=== PATIENT | male | born 1945 | race Caucasian/White ===

== ENCOUNTER 2023-09-24 10:45 | Emergency (ER) | payer MEDICARE, SELFPAY ==
[2023-09-24] VITALS (27 sets, daily range): BP systolic 146–165; BP diastolic 52–122; PULSE 51–126; RESP 16–26; TEMP 36.6–36.9; O2SAT 94–99
[2023-09-24] MEDS: ACETAMINOPHEN 1,000 MG/100 ML BTL 400 MG IVPB (11:23)
[2023-09-24 11:26] LABS: Abs Immature Grans 0.06 10^3/uL (0.0-0.06); Absolute Basophil Count 0.03 10^3/uL (0.0-0.2); Absolute Eosinophil Count 0.02 10^3/uL (0.0-0.7); Absolute Lymphocyte Count 0.87 10^3/uL (1.2-3.4); Absolute Monocyte Count 0.44 10^3/uL (0.1-0.8); Absolute Neutrophil Count 9.07 10^3/uL (1.2-6.7); Basophils % 0.3 %; Eosinophils % 0.2 %; HCT 37.7 % (40.0-50.0); HGB 13.4 g/dL (13.5-17.5); Immature Grans % 0.6 %; Lymphocytes % 8.3 %; MCHC 35.5 % (32.0-36.0); MCV 87 fL (80-95); MPV 9.2 fL (8.0-11.0); Monocytes % 4.2 %; Neutrophils % 86.4 %; Platelet Count 402 10^3/uL (130-400); RBC 4.32 10^6/uL (4.36-5.78); RDW 11.8 % (11.8-14.1); RDW-SD 37.7 fL; WBC 10.49 10^3/uL (4.4-10.8)
--- NOTE | 2023-09-24 11:41 | ED.GENADUL_ITS ---
Discharge Plan Disposition Patient Disposition: Transfer-Acute Inpatient Care Specific Acute Inpt Facility: [facility] Condition: Critical Discharge Details Chief Complaint: Abd Prob Clinical Impression: Acute renal failure Primary Care Provider: Unknown,Unknown ED Provider: Toney Chris Home Meds and New Rx's Prescriptions: No Action No Known Home Meds HPI General Date/Time Provider Initiated Documentation: 09/24/23 11:14 . Limitations to Documentation: no limitations . Information obtained by: patient . HPI Narrative: 78-year-old gentleman without significant past medical history presents for evaluation of abdominal pain. Reports that the pain has been ongoing for the last 10 days per progressively worsening over the last 4 days. He reports that the pain is on the left side and radiates to the back. He states that he has a feeling that he needs to urinate, but has some difficulty going to the bathroom. Reports decreased oral intake. States that he has also had subsequent decrease in bowel movements. He states if he does eat a little bit of food, he usually will have a bowel movement. He denies any fever or vomiting. Related Data Home Medications ?Medication ?Instructions ?Recorded ?Confirmed Unknown [No Known Home Meds] 09/24/23 09/24/23 Allergies Allergy/AdvReac Type Severity Reaction Status Date / Time No Known Allergies Allergy Unverified 09/24/23 10:57 General Stated Complaint: Abd Prob DEON: 3 Exam Narrative Exam Narrative: Review of Systems: All systems reviewed & are unremarkable except as noted in HPI and below Well-developed, no acute distress NCAT PERRL, normal conjunctiva RRR Unlabored respiratory effort, clear bilaterally Mildly distended abdomen , guarding noted, soft Extremities w/o deformity, no cyanosis, no edema No rashes or lesions. no focal neurologic deficits Appropriate mood and affect Course Vital Signs Vital signs: Vital Signs Temperature 36.9 C 09/24/23 10:50 Pulse 61 09/24/23 10:50 Respiratory Rate 18 09/24/23 10:50 Blood Pressure 146/68 H 09/24/23 10:50 Pulse Oximetry 96 09/24/23 10:50 Temperature 36.9 C 09/24/23 10:50 Pulse 61 09/24/23 10:50 Respiratory Rate 18 09/24/23 10:50 Respiratory Effort Normal 09/24/23 10:59 Blood Pressure 146/68 H 09/24/23 10:50 Blood Pressure Position Sitting 09/24/23 10:50 Pulse Oximetry 96 09/24/23 10:50 Oxygen Delivery Method Room Air 09/24/23 10:50 Oxygen Flow Rate 0 09/24/23 10:50 Pain Level 6 09/24/23 10:50 Lab/Test Results Lab/Test Results: Laboratory Tests Range/Units 09/24/23 11:12 WBC (4.4-10.8) 10^3/uL 10.49 RBC (4.36-5.78) 10^6/uL 4.32 L Hgb (13.5-17.5) g/dL 13.4 L Hct (40.0-50.0) % 37.7 L MCV (80-95) fL 87 MCH (27.0-33.0) pg 31.0 MCHC (32.0-36.0) % 35.5 RDW (11.8-14.1) % 11.8 Plt Count (130-400) 10^3/uL 402 H MPV (8.0-11.0) fL 9.2 Immature Gran % % 0.6 Neutrophils % % 86.4 Lymphocytes % % 8.3 Monocytes % % 4.2 Eosinophils % % 0.2 Basophils % % 0.3 Nucleated RBC % (0.0-0.3) % 0.0 Absolute Neutrophils (1.2-6.7) 10^3/uL 9.07 H Absolute Lymphocytes (1.2-3.4) 10^3/uL 0.87 L Absolute Monocytes (0.1-0.8) 10^3/uL 0.44 Absolute Eosinophils (0.0-0.7) 10^3/uL 0.02 Absolute Basophils (0.0-0.2) 10^3/uL 0.03 Medical Decision Making Emergent evaluation of abdominal pain. Initial differential includes constipation, diverticulitis, renal colic. Initial plan for lab work, urinalysis and CT imaging to evaluate for intra or abdominal process. Lab work reviewed. Significant renal dysfunction noted with severe electrolyte derangement. Sodium 116. Potassium 6.9. CO2 12.6. BUNs 170 creatinine 19.9. The significant changes are likely the cause of the patient's bizarre mental status. His pH is low at 7.1. Potassium shifting medications were given and calcium and bicarb were also given. The patient had a bedside bladder scan performed and there was a significant amount of volume noted concerning for urinary retention. A CT scan without contrast was obtained which does demonstrate significant obstructive uropathy. A Lopez catheter was placed. The CT scan was discussed with the radiologist. Significant bladder dilation as well as swelling in the kidneys. There is concern for possible calyceal rupture of the left kidney versus left proximal ureter mass. Every further differentiated with contrasted study is not available at this time given his renal function however if they start dialysis at outside facility this may be beneficial. Patient does not seem to have capacity to understand what is happ ening and I do not feel at this time he has capacity to make medical decisions. I have discussed the necessity of transfer with his . He has been accepted for emergent ED to ED transfer to [facility] and the is agreeable to this plan. Accepted by Dr Cheng. Medical Records Medical records reviewed: Yes I reviewed the patient's medical records. Lab Data Lab results reviewed: Yes I reviewed the patient's lab results. Quality:[facility] Health Related Social Needs: No Data to Display Critical Care Time Critical Care Time Critical Care Time: Yes Total Critical Care Time: 35 Attestation: CRITICAL CARE Upon my evaluation, this patient had a high probability of imminent or life- threatening deterioration due to renal failure which required my direct attention, intervention, and personal management. I have personally provided 35 minutes of critical care time exclusive of time spent on separately billable procedures. Time includes review of laboratory data, radiology results, discussion with consultants, and monitoring for potential decompensation. Interventions were performed as documented above [facility] All Active Problems (Updated 09/24/23 @ 14:11 by Toney Chris MD) Acute renal failure (Acute) Social History Smoking/Tobacco Use Status: Never Smoking risk assessment performed?: Yes Alcohol Intake: former Substance use type: does not use Housing: house Do you feel safe at home: Yes Do you feel safe in your relationship?: Yes
[2023-09-24 11:49] LABS: ALT 14 U/L (16-63); AST 9 U/L (15-37); Alkaline Phosphatase 69 U/L (46-116); Anion Gap 26.4 mmol/L (3-11); Bilirubin, Total 0.38 mg/dL (0.2-1.0); CO2 12.6 mmol/L (21.0-32.0); Chloride 77 mmol/L (98-107); Estimated GFR 2.12 (mL/min/1.73m2); Glucose 73 mg/dL (74-106); Lipase 107 U/L (16-77); Total Protein 8.1 g/dL (6.4-8.2)
[2023-09-24 11:59] LABS: BUN 170 mg/dL (7-18); CREATININE 19.9 mg/dL (0.70-1.30); Sodium 116 mmol/L (136-145)
[2023-09-24 12:00] LABS: Potassium 6.9 mmol/L (3.5-5.1)
--- NOTE | 2023-09-24 12:00 | RT.EKG_ITS ---
APPROVED REPORT Exam: Resting ECG Reason for Exam: abd pain Patient Location: E HR:58 bpm ECG Measurements Heart Rate 58 AXIS AR 216 P 48 QRSd 119 QRS 30 QT 401 T 63 QTc 395 Conclusion Sinus bradycardia 58 no stemi
--- NOTE | 2023-09-24 12:00 | DI.CT_ITS ---
Exam(s) CT ABDOMEN PELVIS WO EXAM: CT ABDOMEN PELVIS WO CLINICAL HISTORY: abdominal pain. TECHNIQUE: Imaging Protocol: Axial computed tomography images with coronal and sagittal reformatted images were created and reviewed. COMPARISON: No exams were available for comparison FINDINGS: The examination is limited due to patient motion artifact. ABDOMEN: Lung Bases: There is a moderate size left pleural effusion. There is subjacent infiltrate in the lef t lower lobe. Liver: Normal density. No measurable mass. Gallbladder and biliary tract: No radiodense calculus or biliary ductal dilation. Pancreas: Normal density, no abnormal calcifications or inflammatory process. Spleen: Normal. Kidneys: There is moderate dilatation of the right renal pelvis without evidence of a radiopaque obst ructing stone. The distal ureters of normal caliber. There is moderate dilatation of the left renal pelvis with normal caliber distal left ureter. There is fluid seen in the perinephric soft tissues on the left. There is also fluid seen in the retroperitoneum on the left adjacent to the left iliops oas muscle.No radiodense stones are seen in the kidneys. There is a 2 cm hypodensity in the superior pole of the left kidney. This is incompletely characterized on this noncontrast examination. Adrenal glands: No mass is seen. Lymph nodes: Within normal limits. Abdominal Aorta: Abdominal portion non-dilated. Atherosclerotic calcification is present. PELVIS: Bladder:The urinary bladder is markedly distended. No bladder mass is appreciated. No bladder stone s are identified. Bowel: There is diverticulosis of the colon without evidence of acute diverticulitis. There is no ev idence of bowel obstruction or bowel wall thickening. There is no evidence of appendicitis. Peritoneal cavity: There is a small amount of ascites in the gutters bilaterally. There is a small a mount of perihepatic and perisplenic ascites. No free air. Reproductive organs: The prostate gland is mildly enlarged. Bones: Within normal limits for the patient's age. There is L5 spondylolysis but no spondylolisthesi s. Soft Tissues: Within normal limits. IMPRESSION: 1. Markedly distended urinary bladder. No stones or masses identified. The prostate gland is mildly e nlarged. 2. Dilatation of the renal collecting systems bilaterally, predominantly involving the renal pelves. There is infiltration in fluid seen surrounding the left kidney. This may represent calyceal/fornicea l rupture. No radiopaque stone is identified. A radiolucent stone or proximal ureteral mass should be considered. Dilatation of the collecting systems may also be a sequelae of the distended urinary bhupinder dder. 3. Moderate left pleural effusion and left basilar infiltrate which may represent atelectasis or pneu monia. 4. Colonic diverticulosis without evidence of acute diverticulitis. 5. A postcontrast CT scan or MRI of the abdomen and pelvis is recommended. 6. Indeterminate 2 cm hypodensity in the superior pole of the left kidney. 7. Findings were discussed with Dr. Chris at 2:10 p.m. on 09/24/2023. RADIATION DOSE DELIVERED: Total DLP DATA REPOSITORY: All CT scans at this facility are submitted to the National Radiology Data Registry (NRDR) Dose Index Registry (DIR) with the [employer] (A[employer]). RADIATION OPTIMIZATION: All CT scans at this facility use at least one of these dose optimization te chniques: automated exposure control; mA and/or kV adjustment per patient size (includes targeted exa ms where dose is matched to clinical indication); or iterative reconstruction.
[2023-09-24 12:07] LABS: pCO2 (Venous) 31 mmHg (41-51)
[2023-09-24 12:08] LABS: BE (Venous) -16 mmol/L (-2-3); HCO3 (Venous) 12 mmol/L (23-28); O2 Sat (Venous) 85 %; TCO2 (Venous) 13 mmol/L (24-29); pO2 (Venous) 61 mmHg
[2023-09-24 12:08] LABS: Calcium 9.6 mg/dL (8.5-10.1)
[2023-09-24 12:09] LABS: pH (Venous) 7.19 (7.31-7.41)
[2023-09-24] MEDS: Dextrose 50%-Water 25 GM/50 ML SYR IVP (12:18)
[2023-09-24] MEDS: Insulin REGULAR-Human 100 UNITS/ML UNIT IV (12:19)
[2023-09-24] MEDS: Furosemide 100 MG/10 ML VIAL 80 MG IVP (12:20)
[2023-09-24] MEDS: CALCIUM GLUCONATE in NaCl 1 GM/50 ML BAG IVPB (12:22)
[2023-09-24] MEDS: Sodium Bicarbonate 50 MEQ/50 ML SYR IVP (12:25)
[2023-09-24] MEDS: Normal Saline 1,000 ML 1000 ML IV (12:27)
[2023-09-24] MEDS: Albuterol 2.5 MG/3 ML INH SOLN VIAL 10 MG UPD (12:29)
[2023-09-24] MEDS: Lidocaine 2% Jelly 6 ML SYR (13:40)
--- NOTE | 2023-10-07 09:45 | NUR.NOTE ---
Access chart to get demographic information to send referral for needs PCP. Dr. Cornejo full stack python developer for telephone call on the th referral sent for establish care, follow up from [facility]. Nursing Note:
--- NOTE | 2023-10-07 10:17 | NUR.NOTE ---
Patient called stating that he had a murillo put in at [facility] and wanted to know if he could have it taken out here. I told him that we do remove them, he can also go to [facility] or [facility]CP. He stated he felt better coming here because he like the care he got here. He also stated he does not have a PCP. I sent a referral to [facility] for PCP; see other note. Nursing Note:
== END 2023-09-24 14:30 | disposition short-term general hospital (02) ==
PROVIDERS: Emergency Provider Emergency Medicine
DX: N28.9 Disorder of kidney and ureter, unspecified (principal); R93.422 Abnormal radiologic findings on diagnostic imaging of left kidney; R93.421 Abnormal radiologic findings on diagnostic imaging of right kidney; R10.9 Unspecified abdominal pain; R11.2 Nausea with vomiting, unspecified
CPT/HCPCS: 51702; 80053; 82805; 83690; 93005; 94640; 96365; 96375; 99291; 74176; 83605; 85025; 93010; J0131; J0613; J1815; J1940; J7613

== ENCOUNTER 2023-10-07 15:51 | Emergency (ER) | payer MEDICARE, SELFPAY ==
[2023-10-07 16:00] VITALS: BP 116/73; PULSE 94; RESP 16; TEMP 36.6; O2SAT 99
--- OUTSIDE RECORDS SUMMARY | 2023-10-07 16:18 | XMS_ITS | Clinical Summary ---
Author Organization [facility] Address [address] [place] [address] Care Team Providers Care Acid Bath Mixer Name Role Phone Sasha Garg MD Primary Care Provider Jigna Chapman MD Unavailable [phone] Allergies Active Allergy Reactions Criticality Noted Date Comments Basil Swelling,GI upset High 09/25/2023 Pt states I have a head to toe negative reaction Marcial [place] Swelling,GI upset High 09/25/2023 Pt states that foods with marcial or similar spices cause a head to toe negative reaction Medications Medication Sig Dispensed Refills Start Date End Date Status acetaminophen (TYLENOL) 325 mg tablet Take 2 Tablets by mouth every 6 hours as needed for Pain or Fever. 09/30/2023 Active dilTIAZem (CARDIZEM) 30 mg tablet Take 1 Tablet by mouth 2 times daily. 60 Tablet 09/30/2023 Active TAMSulosin (FLOMAX) 0.4 mg capsule Take 1 Capsule by mouth at bedtime. 30 Capsule 2 10/04/2023 Active finasteride (PROSCAR) 5 mg tablet Take 1 Tablet by mouth daily. 30 Tablet 2 10/04/2023 Active TAMSulosin (FLOMAX) 0.4 mg capsule Take 1 Capsule by mouth at bedtime for 30 days. 30 Capsule 09/30/2023 10/04/2023 Discontinued (Reorder) finasteride (PROSCAR) 5 mg tablet Take 1 Tablet by mouth daily. 30 Tablet 10/01/2023 10/04/2023 Discontinued (Reorder) Active Problems Problem Noted Date Diagnosed Date Typical atrial flutter ([facility]) 09/29/2023 Acute bilateral obstructive uropathy 09/25/2023 Urinary retention 09/25/2023 Resolved Problems Problem Noted Date Diagnosed Date Resolved Date Acute renal failure, unspeci fied acute renal failure type ([facility]) 09/25/2023 09/29/2023 Hyponatremia 09/25/2023 09/29/2023 NSTEMI (non-ST elevated myoc ardial infarction) ([facility]) 09/25/2023 09/29/2023 Acute renal failure ([facility]) 09/24/2023 09/29/2023 MANUELITO (acute kidney injury) ([facility]) 09/24/2023 09/29/2023 Encounters Date Type Department Care Team Description 10/04/2023 Telephone [facility] Urology - [address] [phone] Nurse, Ep5 Urology Requesting Sooner Appointment 10/03/2023 Telephone [facility] Adult Primary Care [facility] [address], [place] [phone] Imelda Kimble, GRIFFIN Hospital Discharge Follow Up 10/02/2023 9:18 EDT - 10/02/2023 23:59 EDT Hospital Encounter [facility] Non-Invasive Cardiology - [address] [address] Typical atrial flutter ([facility]) Discharge Disposition: Home or Self Care 09/26/2023 Orders Only [facility] Radiology - [address] [address] Chris Montgomery MD 09/24/2023 18:14 EDT - 09/24/2023 23:59 EDT Hospital Encounter [facility] Secondary Reads [place] Discharge Disposition: Home or Self Care 09/24/2023 16:13 EDT - 09/30/2023 15:27 EDT Hospital Encounter [place] [address] General Medicine Telemetry Unit [address] [place] [phone] Latisha Ruvalcaba MD Lambirth, Shea P, MD [facility], Bruna Amalea, MD MPH Donna Valencia DO Farkas, Joshua D, MD Levit, Aaron, DO Doyle-Burr, Caleb J, MD Acute bilateral obstructive uropathy (Primary Dx); Acute renal failure, unspecified acute renal failure type ([facility]); Hyponatremia; NSTEMI (non-ST elevated myocardial infarction) ([facility]); Urinary retention; Typical atrial flutter ([facility]); MANUELITO (acute kidney injury) ([facility]) Discharge Disposition: Home-Health Care [facility] 09/24/2023 Travel from Last 3 Months Family History Medical History Relation Comments Dementia Father Relation Status Comments Father Social History Tobacco Use Types Packs/Day Years Used Date Smoking Tobacco: Never Assessed PRAPARE - Transportation Answer Date Re corded In the past 12 months, has l ack of transportation kept you from medical appointments or from getting medications? No 09/11 In the past 12 months, has l ack of transportation kept you from meetings, work, or from getting things needed for daily living? No 09/28/2023 Housing Stability Vital Sign Answer José e Recorded In the last 12 months, was t here a time when you were not able to pay the mortgage or rent on time? No 09/28/2023 Number of Times Moved in the Last Year Not on fi le 09/28/2023 At any time in the past 12 m [facility], were you homeless or living in a long-term (including now)? No 09/28/2023 Interpersonal Safety Answer Date Record ed How often does anyone, inclu jackie family, hit, punch or physically hurt you? 09/26/2023 How often does anyone, inclu jackie family, insult, scream, curse or threaten to hurt you? 09/26/2023 Sex and Gender Information Value Date Recorded Sex Assigned at Male 10/05/2023 21:45 EDT Gender Identity Male 09/24/2023 16:53 EDT Sexual Orientation Straight 10/05/2023 21 :45 EDT Obstetrics History Last Filed Vital Signs Vital Sign Reading Time Taken Comments Blood Pressure 121/76 09/30/2023 1248 EDT Pulse 56 09/29/2023 0029 EDT Temperature 36.7 ??C (98.1 ??F) 09/30/2023 1248 EDT Respiratory Rate 16 09/30/2023 1248 EDT Oxygen Saturation 98% 09/30/2023 1248 EDT Inhaled Oxygen Concentration - - Weight 85.7 kg (189 lb) 09/25/2023 0800 EDT Height 180.3 cm (5' 11) 09/25/2023 0800 EDT Body Mass Index 26.36 09/25/2023 0800 EDT Plan of Treatment Upcoming Encounters Date Type Department Care Team (Late st Contact Info) Description 10/09/2023 11:20 EDT Post-op Visit [facility] Urolog[address] [address] Ricardo Wright MD [address] [place] [phone] 10/09/2023 11:30 EDT Nurse Only [facility]rolog[address] [address] Nurse, Ep5 Urology 10/11/2023 14:00 EDT Office Visit [facility] Adult Primary Care [address] [address] Sasha Garg MD [address] [place] [phone] 10/31/2023 11:30 EDT Appointment [facility] Radiology CT - [address] [phone] Health Maintenance Due Date Last Done Comments Hepatitis C Screen 1945 Pneumococcal Immunization (6 5+) (1 of 2 - PCV) 1950 Depression Screening 1956 Advance Directive 1962 Preventive Care Visit 1962 Pertussis (Adult) Immunization 08/19/1963 Tetanus (Adult) Immunization 08/19/1963 Shingles Immunization (1 of 2) 1994 RSV Immunization ( o r 60+ Years) (1 - 1-dose 60+ series) 2004 Fall Risk Screening 2009 Influenza Immunization (Adul t) (#1) 2023 COVID-19 Vaccine (2022-2 4 season) 2023 Postponed from 10/12 (Immunization Not Available) Social Determinants Of Healt h (SDOH) 09/27/2024 09/28/2023 Lipid Profile Screening (Cholesterol) 09/24/2028 09/25/2023 Procedures Procedure Name Priority Date/Time Associated Diagnosis Comments ECG REPORT - SCANNED 10/03/2023 15:15 EDT ECG REPORT - SCANNED 10/03/2023 14:44 EDT ECG REPORT - SCANNED 10/03/2023 13:34 EDT ECG REPORT - SCANNED 10/02/2023 22:21 EDT ECG REPORT - SCANNED 10/02/2023 13:45 EDT ECG REPORT - SCANNED 09/30/2023 17:45 EDT HEPARIN LEVEL - UNFRACTIONATED HEPARIN STAT 09/30/2023 10:26 EDT BASIC METABOLIC PANEL (BMP) Timed 09/30/2023 6:15 EDT COMPLETE BLOOD COUNT Routine 09/30/2023 6:15 EDT EKG 12-LEAD Routine 09/29/2023 19:02 EDT COMPLETE BLOOD COUNT Routine 09/29/2023 5:50 EDT BASIC METABOLIC PANEL (BMP) Timed 09/29/2023 5:49 EDT ECG REPORT - SCANNED 09/28/2023 14:34 EDT EKG 12-LEAD STAT 09/28/2023 11:46 EDT BASIC METABOLIC PANEL (BMP) Timed 09/28/2023 5:42 EDT COMPLETE BLOOD COUNT Routine 09/28/2023 5:42 EDT BASIC METABOLIC PANEL (BMP) Timed 09/27/2023 21:52 EDT BASIC METABOLIC PANEL (BMP) Timed 09/27/2023 14:55 EDT EKG 12-LEAD STAT 09/27/2023 10:14 EDT BASIC METABOLIC PANEL (BMP) Timed 09/27/2023 9:54 EDT COMPLETE BLOOD COUNT Routine 09/27/2023 5:38 EDT BASIC METABOLIC PANEL (BMP) Timed 09/27/2023 5:38 EDT BASIC METABOLIC PANEL (BMP) Timed 09/27/2023 2:02 EDT BASIC METABOLIC PANEL (BMP) Timed 09/26/2023 21:26 EDT BASIC METABOLIC PANEL (BMP) Timed 09/26/2023 18:06 EDT BASIC METABOLIC PANEL (BMP) Timed 09/26/2023 13:50 EDT BASIC METABOLIC PANEL (BMP) Timed 09/26/2023 10:14 EDT BASIC METABOLIC PANEL (BMP) Timed 09/26/2023 5:44 EDT BASIC METABOLIC PANEL (BMP) Timed 09/26/2023 2:10 EDT COMPLETE BLOOD COUNT Routine 09/26/2023 2:10 EDT BASIC METABOLIC PANEL (BMP) Timed 09/25/2023 21:50 EDT EKG 12-LEAD Routine 09/25/2023 20:25 EDT MRSA PCR Routine 09/25/2023 17:53 EDT ELECTROLYTES Routine 09/25/2023 17:52 EDT BASIC METABOLIC PANEL (BMP) Timed 09/25/2023 17:52 EDT BASIC METABOLIC PANEL (BMP) Timed 09/25/2023 13:48 EDT ECG REPORT - SCANNED 09/25/2023 10:07 EDT BASIC METABOLIC PANEL (BMP) Timed 09/25/2023 10:06 EDT TRANSTHORACIC ECHO (TTE) COMPLETE Routine 09/25/2023 10:03 EDT ECG REPORT - SCANNED 09/25/2023 9:56 EDT LIPID PROFILE (INCLUDES CHOLESTEROL, TRIGLYCERIDES, HDL, LDL) Add-On 09/25/2023 6:26 EDT TSH Add-On 09/25/2023 6:26 EDT HEMOGLOBIN A1C Add-On 09/25/2023 6:26 EDT TROPONIN I Routine 09/25/2023 6:26 EDT BASIC METABOLIC PANEL (BMP) Routine 09/25/2023 6:26 EDT COMPLETE BLOOD COUNT Routine 09/25/2023 6:26 EDT BASIC METABOLIC PANEL (BMP) STAT 09/25/2023 1:44 EDT BLOOD GASES, VENOUS STAT 09/24/2023 2 2:45 EDT PHOSPHORUS Add-On 09/24/2023 21:02 EDT SODIUM STAT Add-on 09/24/2023 21:02 EDT TROPONIN I STAT 09/24/2023 21:02 EDT BUN STAT 09/24/2023 19:14 EDT CREATININE STAT 09/24/2023 19:[address] OUTSIDE IMAGES ABDOMEN PELVIS STAT 09/24/2023 18:22 EDT URINE CHEMICAL (DIP) & SEDIMENT (MICRO) WITH REFLEX TO CULTURE STAT 09/24/2023 17:56 EDT TSH STAT 09/24/2023 17:14 EDT TROPONIN I STAT 09/24/2023 17:14 EDT LACTIC ACID WITH REFLEX - USE FOR INITIAL SEPSIS EVALUATION STAT 09/24/2023 17:14 EDT COMPREHENSIVE METABOLIC PANEL (CMP) STAT 09/24/2023 17:14 EDT MAGNESIUM STAT 09/24/2023 17:14 EDT MANUAL HEMATOCRIT Today 09/24/2023 17: 13 EDT COMPLETE BLOOD COUNT AND DIFFERENTIAL STAT 09/24/2023 17:13 EDT EKG 12-LEAD STAT 09/24/2023 17:06 EDT EKG 12-LEAD STAT 09/24/2023 16:53 EDT from Last 3 Months Results * ECG REPORT - SCANNED (10/03/2023 15:15 EDT) 10/03/2023 15:1 5 EDT Scan 2 [employer] PROCEDURE/MINOR DANIEL GICAL ORDERABLES * ECG REPORT - SCANNED (10/03/2023 14:44 EDT) 10/03/2023 14:4 4 EDT Scan 2 [employer] PROCEDURE/MINOR DANIEL GICAL ORDERABLES * ECG REPORT - SCANNED (10/03/2023 13:34 EDT) 10/03/2023 13:3 4 EDT Scan 2 [employer] PROCEDURE/MINOR DANIEL GICAL ORDERABLES * ECG REPORT - SCANNED (10/02/2023 22:21 EDT) 10/02/2023 22:2 1 EDT Scan 2 [employer] PROCEDURE/MINOR DANIEL GICAL ORDERABLES * ECG REPORT - SCANNED (10/02/2023 13:45 EDT) 10/02/2023 13:4 5 EDT Scan 2 [employer] PROCEDURE/MINOR DANIEL GICAL ORDERABLES * ECG REPORT - SCANNED (09/30/2023 17:45 EDT) 09/30/2023 17:4 5 EDT Scan 2 [employer] PROCEDURE/MINOR DANIEL GICAL ORDERABLES * HEPARIN LEVEL - UNFRACTIONATED HEPARIN (09/30/2023 10:26 EDT) Heparin Level-UFH 0.12 Therapeutic Range: 0.30 - 0.70 IU/mL 09/30/2023 11:00 EDT [facility] Blood VENOUS BLOOD / Unknown Venipuncture / Unknown 09/30/2023 10:26 EDT 09/30/2023 10:34 EDT Narrative [facility] - 09/30/2023 11:00 EDT Sample retested, result confirmed Lalo Ramires MD HEMATOLOGY & PF4 O RDERABLES [facility] [address] [place] [address] * (ABNORMAL) COMPLETE BLOOD COUNT (09/30/2023 6:15 EDT) Only the most recent of6 resultswithin the time period is included. WBC 9.06 4.00 - 10.40 K/cmm 09/30/2023 6:29 EDT [facility] RBC 3.70(L) 4.36 - 5.78 M/cmm 09/30/2023 6:29 EDT [facility] Hemoglobin 11.7(L) 13.8 - 17.3 g/dL 09/30/2023 6:29 [facility] HCT 34.0(L) 39.5 - 50.2 % 09/30/2023 6:29 [facility] MCV 92 81 - 95 fL 09/30/2023 6[facility] MCH 31.6 27.6 - 33.0 pg 09/30/2023 6:29 [facility] MCHC 34.4 32.8 - 36.4 g/dL 09/30/2023 6:29 [facility] RDW-CV 11.9 <14.2 % 09/30/2023 6:29 [facility] RDW-SD 39.9 <46.0 fl 09/30/2023 6:29 [facility] PLT 282 141 - 377 K/cmm 09/30/2023 6:29 [facility] MPV 8.9(L) 9.5 - 12.7 fL 09/30/2023 6:29 [facility] Blood VENOUS BLOOD / Unknown Venipuncture / Unknown 09/30/2023 6:15 EDT 09/30/2023 6:21 EDT Rene Miller DO HEMATOLOGY & PF4 ORD ERABLES [facility] [address] [place] [address] * (ABNORMAL) BASIC METABOLIC PANEL (BMP) (09/30/2023 6:15 EDT) Only the most recent of20 resultswithin the time period is included. Sodium 135(L) 136 - 145 mmol/L 09/30/2023 7:16 [facility] Potassium 4.8 3.5 - 5.0 mmol/L 09/30/2023 7:16 [facility] Chloride 105 96 - 110 mmol/L 09/30/2023 7:16 [facility] CO2 Total 21(L) 22 - 32 mmol/L 09/30/2023 7:16 [facility] Anion Gap 9 5 - 14 mmol/L 09/30/2023 7:16 [facility] Glucose 99 70 - 99 mg/dl 09/30/2023 7:16 [facility] Calcium 8.3(L) 8.5 - 10.5 mg/dL 09/30/2023 7:16 [facility] BUN 14 10 - 26 mg/dL 09/30/2023 7:16 [facility] Creatinine 0.68 0.66 - 1.25 mg/dL 09/30/2023 7:16 [facility] eGFR 95 >60 mL/min/1.73 m2 09/30/2023 7:16 [facility] Blood VENOUS BLOOD / Unknown Venipuncture / Unknown 09/30/2023 6:15 EDT 09/30/2023 6:24 EDT Donna Valencia DO CHEMISTRY & BLOOD GAS ORDERABLES [facility] [address] [place], [place] [address] * EKG 12-LEAD (09/29/2023 19:02 EDT) 09/29/2023 19:0 2 EDT Narrative [facility] - 10/03/2023 15:01 EDT ? [facility] ? Test Date: ?2023-09-29 Pat Name: ? LISANDRA HOLLIS ? Department: ?? Subha 6 ? Room: ? M626 Gender: ? Male ? Culture Manager: ?? [id number] : ?1945 ? Requested By: RUPESH Diaz Order Number: [id number] ? Reading MD: ?? FRIEDERIKE ISAAC MD ? Measurements Intervals ?Geary ? Rate: ? 67 ? P: ?0 NC: ? 0 ?QRS: ?45 QRSD: ? 92 ? T: ?32 QT: ? 367 ? QTc: ?389 ? Interpretive Statements ATRIAL FLUTTER/TACHYCARDIA ABNORMAL RHYTHM ECG Compared to ECG 09/28/2023 11:46:59 No significant change I reviewed the tracing and have either agreed or edited the findings in this report. Electronically Signed On 10-03-2023 15:01:04 EDT by CATRACHITO GRAY MD. Procedure Note Catrachito Gray MD - 10/03/2023 [facility] Test Date: 2023-09-29 Pat Name: LISANDRA HOLLIS Department: [place] [address] Room: [facility] Gender: Male Culture Manager: [id number] : 1945 Requested By: RUPESH Diaz Order Number: [id number] Reading MD: CATRACHITO LORD Measurements Intervals Geary Rate: 67 P: 0 NC: 0 QRS: 45 QRSD: 92 T: 32 QT: 367 QTc: 389 Interpretive Statements ATRIAL FLUTTER/TACHYCARDIA ABNORMAL RHYTHM ECG Compared to ECG 09/28/2023 11:46:59 No significant change I reviewed the tracing and have either agreed or edited the findings inthis report. Electronically Signed On 10-03-2023 15:01:04 EDT by CATRACHITO GRAY MD. Donna Valencia DO CARDIAC ECG ORDER ARDEN [facility] * ECG REPORT - SCANNED (09/28/2023 14:34 EDT) 09/28/2023 14:3 4 EDT Scan 2 [employer] PROCEDURE/MINOR DANIEL GICAL ORDERABLES * EKG 12-LEAD (09/28/2023 11:46 EDT) 09/28/2023 11:4 6 EDT Narrative [facility] - 10/02/2023 13:36 EDT ? [facility] ? Test Date: ?2023-09-28 Pat Name: ? LISANDRA HOLLIS ? Department: ?? [facility] 6 ? Room: ? M626 Gender: ? Male ? Culture Manager: ?? [id number] : ?1945 ? Requested By: RUPESH Diaz Order Number: [id number] ? Reading MD: ?? JORDON SALINAS MD ? Measurements Intervals ?Geary ? Rate: ? 97 ? P: ?0 NC: ? 0 ?QRS: ?20 QRSD: ? 90 ? T: ?32 QT: ? 326 ? QTc: ?415 ? Interpretive Statements ATRIAL FLUTTER Compared to ECG 09/27/2023 10:14:33 No significant changes I reviewed the tracing and have either agreed or edited the findings in this report. Electronically Signed On 10-02-2023 13:36:25 EDT by JORDON SALINAS MD. Procedure Note Jordon Salinas MD - 10/02/2023 [facility] Test Date: 2023-09-28 Pat Name: LISANDRA OHLLIS Department: [place] [address] Room: 26 Gender: Male Culture Manager: [id number] : 1945 Requested By: RUPESH Diaz Order Number: [id number] Reading MD: JORDON SALINAS MD Measurements Intervals Geary Rate: 97 P: 0 NC: 0 QRS: 20 QRSD: 90 T: 32 QT: 326 QTc: 415 Interpretive Statements ATRIAL FLUTTER Compared to ECG 09/27/2023 10:14:33 No significant changes I reviewed the tracing and have either agreed or edited the findings inthis report. Electronically Signed On 10-02-2023 13:36:25 EDT by JORDON RYAN. Donna Valencia DO CARDIAC ECG ORDER ARDEN [facility] * EKG 12-LEAD (09/27/2023 10:14 EDT) 09/27/2023 10:1 4 EDT Narrative [facility] - 09/30/2023 17:23 EDT ? [facility] ? Test Date: ?2023-09-27 Pat Name: ? LISANDRA HOLLIS ? Department: ?? Subha Naik ? Room: ? M626 Gender: ? Male ? Culture Manager: ?? [id number] : ?1945 ? Requested By: RUPESH Diaz Order Number: [id number] ? Reading MD: ?? REGINALD DARIA MD ? Measurements Intervals ?Geary ? Rate: ? 107 ?P: ?0 NC: ? 0 ?QRS: ?33 QRSD: ? 90 ? T: ?15 QT: ? 321 ? QTc: ?428 ? Interpretive Statements ATRIAL FLUTTER/TACHYCARDIA WITH RAPID VENTRICULAR RESPONSE ABNORMAL RHYTHM ECG Compared to ECG 09/25/2023 20:25:23 T-wave abnormality no longer present I reviewed the tracing and have either agreed or edited the findings in this report. Electronically Signed On 09-30-2023 17:23:27 EDT by REGINALD HUFF MD. Procedure Note Reginald Huff MD - 09/30/2023 [facility] Test Date: 2023-09-27 Pat Name: LISANDRA TELMA Department: [place] [address] Room: [facility] Gender: Male Culture Manager: [id number] : 1945 Requested By: RUPESH Diaz Order Number: [id number] Reading MD: REGINALD HUFF MD Measurements Intervals Geary Rate: 107 P: 0 NC: 0 QRS: 33 QRSD: 90 T: 15 QT: 321 QTc: 428 Interpretive Statements ATRIAL FLUTTER/TACHYCARDIA WITH RAPID VENTRICULAR RESPONSE ABNORMAL RHYTHM ECG Compared to ECG 09/25/2023 20:25:23 T-wave abnormality no longer present I reviewed the tracing and have either agreed or edited the findings inthis report. Electronically Signed On 09-30-2023 17:23:27 EDT by REGINALD FONTENOT. Donna Valencia DO CARDIAC ECG ORDER ARDEN [facility] * EKG 12-LEAD (09/25/2023 20:25 EDT) 09/25/2023 20:2 5 EDT Narrative [facility] - 09/28/2023 14:19 EDT ? [facility] ? Test Date: ?2023-09-25 Pat Name: ? LISANDRA HOLLIS ? Department: ?? [facility] 4 ? Room: ? M401 Gender: ? Male ? Culture Manager: ?? : ?1945 ? Requested By: JODIE Barone Order Number: [id number] ? Reading MD: ?? TRACE CHAPARRO MD ? Measurements Intervals ?Geary ? Rate: ? 134 ?P: ?0 NC: ? 0 ?QRS: ?66 QRSD: ? 87 ? T: ?0 QT: ? 198 ? QTc: ?296 ? Interpretive Statements ATRIAL FLUTTER/TACHYCARDIA WITH RAPID VENTRICULAR RESPONSE NONSPECIFIC ST & T-WAVE ABNORMALITY ABNORMAL RHYTHM ECG Compared to ECG 09/24/2023 17:06:09 T-wave abnormality now present Atrial fibrillation no longer present I reviewed the tracing and have either agreed or edited the findings in this report. Electronically Signed On 09-28-2023 14:19:53 EDT by RILEY CHAPARRO MD. Procedure Note Riley Chaparro MD - 09/28/2023 [facility] Test Date: 2023-09-25 Pat Name: LISANDRA HOLLIS Department: [place] [address] Room: M401 Gender: Male Culture Manager: : 1945 Requested By: JODIE Barone Order Number: [id number] Reading MD: RILEY CHAPARRO MD Measurements Intervals Geary Rate: 134 P: 0 NC: 0 QRS: 66 QRSD: 87 T: 0 QT: 198 QTc: 296 Interpretive Statements ATRIAL FLUTTER/TACHYCARDIA WITH RAPID VENTRICULAR RESPONSE NONSPECIFIC ST & T-WAVE ABNORMALITY ABNORMAL RHYTHM ECG Compared to ECG 09/24/2023 17:06:09 T-wave abnormality now present Atrial fibrillation no longer present I reviewed the tracing and have either agreed or edited the findings inthis report. Electronically Signed On 09-28-2023 14:19:53 EDT by RILEY CAPELLAN. Selvin Ramirez MD CARDIAC ECG ORDERABL ES Performing Organization Address City/[facility]/ZIP Co de Phone Number [facility] * MRSA PCR (09/25/2023 17:53 EDT) MRSA/Staph aureus Result No Staphylococcus aureus detected by PCR 09/25/2023 23:15 EDT [facility] Swab BOTH ANTERIOR NARES / Unknown Swab / Unknown 09/25/2023 17:53 EDT 09/25/2023 18:12 EDT Selvin Ramirez MD MICROBIOLOGY - GENER AL ORDERABLES Performing Organization Address [facility] Co de Phone Number [facility] [address] [place] [phone] * (ABNORMAL) ELECTROLYTES (09/25/2023 17:52 EDT) Sodium 125(L) 136 - 145 mmol/L 09/25/2023 18:13 EDT [facility] Potassium 4.4 3.5 - 5.0 mmol/L 09/25/2023 18:13 EDT [facility] Chloride 89(L) 96 - 110 mmol/L 09/25/2023 18:13 EDT [facility] CO2 Total 27 22 - 32 mmol/L 09/25/2023 18:13 EDT [facility] Anion Gap 9 5 - 14 mmol/L 09/25/2023 18:13 EDT [facility] Blood VENOUS BLOOD / Unknown Venipuncture / Unknown 09/25/2023 17:52 EDT 09/25/2023 17:58 EDT Selvin Ramirez MD CHEMISTRY & BLOOD GA S ORDERABLES Performing Organization Address [facility]/ZIP Co de Phone Number [facility] [address] [place] [address] * ECG REPORT - SCANNED (09/25/2023 10:07 EDT) 09/25/2023 10:0 7 EDT Scan 2 [employer] PROCEDURE/MINOR DANIEL GICAL ORDERABLES * TRANSTHORACIC ECHO (TTE) COMPLETE W/DOPPLER W/CF NO CONTRAST (09/25/2023 10:03 EDT) LV Diastolic Volume 66 mL [facility] LV Systolic Volume 20 mL [facility] LVOT area 3.1 cm2 [facility] POIN T [facility] LVOT ID, S 2.0 cm [facility] POI NT OF CARE LV ejection fraction, 1-p A4C 52 % [facility] Aortic root ID 3.4 cm [facility] Ascending aorta ID, a-p 2.9 cm [facility] LV ID, ES, PLAX 2.4 2.1 - 4.0 cm [facility] LV PW thickness, ED, PLAX 0.9 0.6 - 1.1 cm [facility] LV ID, ED, PLAX 3.9 3.5 - 6.0 cm [facility] LA volumes, ES, A4C 70.0 ml [facility] LA ID/bsa, A-P 1.7 cm/m2 [facility] LA ID, A-P, ES 3.4 cm [facility] LV end-diastolic volume, 1-p A4C 58 ml [facility] LA/aortic root ratio 1 [facility] IVS thickness, ED, PLAX 0.8 cm [facility] Anatomical Region Laterality Modality Ultrasound Narrative 09/25/2023 10:29 EDT ?Pericardium: Image quality is suboptima. There did not appear to be any significant pericardial effusion. There was a left pleural effusion visualized. ?Left??Ventricle: The left ventricular cavity was normal in size. Left ventricular systolic function was normal with an ejection fraction of 55-60% by visual estimate. The study is not technically sufficient to allow evaluation of left ventricular diastolic function. Although no diagnostic regional wall motion abnormality was identified, this possibility cannot be completely excluded on the basis of this study. ?Right??Ventricle: The right ventricular cavity was normal in size. Right ventricular systolic function was normal. Left Ventricle The left ventricular cavity was normal in size. Left ventricular systolic function was normal with an ejection fraction of 55-60% by visual estimate. The study is not technically sufficient to allow evaluation of left ventricular diastolic function. Left ventricular wall thickness was normal. Although no diagnostic regional wall motion abnormality was identified, this possibility cannot be completely excluded on the basis of this study. Right Ventricle The right ventricular cavity was normal in size. Right ventricular systolic function was normal. Right ventricular wall thickness was normal. Left Atrium Left atrial cavity was in the upper limits of normal in size. Right Atrium The right atrium was normal in size. IVC/SVC The inferior vena cava was normal in size. Mitral Valve Mitral valve structure was normal. There was no significant mitral valve stenosis or regurgitation. Tricuspid Valve Tricuspid valve structure was normal. There was mild tricuspid valve regurgitation. There was no tricuspid valve stenosis. Aortic Valve The aortic valve structure was trileaflet. The aortic leaflets were mildly thickened. There was no aortic valve stenosis. There was no aortic valve regurgitation. Pulmonic Valve The pulmonic valve was not well visualized. There was no significant pulmonic valve regurgitation. There was no pulmonic valve stenosis. Ascending Aorta The aorta was normal in size. Pericardium There was no significant pericardial effusion. There was a left pleural effusion visualized. Pulmonic Artery Unable to assess PA pressure. Study Details Study status: Routine. Transthoracic echocardiography. M-Mode, complete 2D, complete spectral Doppler, and color Doppler.The study was interpreted by [facility]. Pertinent images and digital data are archived for permanent storage and are available for subsequent review. Scanning was performed from the apical, parasternal and subcostal acoustic windows. Overall the study quality was poor. The study was difficult due to patient uncooperativeness, clinical status and body habitus. Images were obtained using cardiac ultrasound machine EPIQ #10. Donna Valencia DO CARDIAC ECHO POOJA FERNANDES * ECG REPORT - SCANNED (09/25/2023 9:56 EDT) 09/25/2023 9:56 EDT Scan 2 [employer] PROCEDURE/MINOR DANIEL GICAL ORDERABLES * (ABNORMAL) TROPONIN I (09/25/2023 6:26 EDT) Only the most recent of3 resultswithin the time period is included. Troponin I (ng/mL) 0.065(H) <0.034 ng/mL 09/25/2023 7:27 EDT [facility] Blood VENOUS BLOOD / Unknown Venipuncture / Unknown 09/25/2023 6:26 EDT 09/25/2023 6:54 EDT Narrative [facility] - 09/25/2023 7:27 EDT The results of this assay can be falsely lowered due to the consumption of Biotin. Rene Miller DO CHEMISTRY & BLOOD GA S ORDERABLES Performing Organization Address City/[facility]/ZIP Co de Phone Number [facility] [address] [place] [address] * TSH (09/25/2023 6:26 EDT) Only the most recent of2 resultswithin the time period is included. Pathologist [facility] TSH 2.25 0.47 - 4.68 mIU/L 09/25/2023 10:28 EDT [facility] Blood VENOUS BLOOD / Unknown Venipuncture / Unknown 09/25/2023 6:26 EDT 09/25/2023 6:54 EDT Narrative [facility] - 09/25/2023 10:28 EDT The results of this assay can be falsely lowered due to the consumption of Biotin. Donna Valencia DO CHEMISTRY & BLOOD GAS ORDERABLES Performing Organization Address City/[facility]/ZIP Co de Phone Number [facility] [address] [place] [address] * (ABNORMAL) HEMOGLOBIN A1C (09/25/2023 6:26 EDT) Hemoglobin A1c 5.7(H) <5.7 % 09/25/2023 11:37 [facility] Comment: Glycemic Status References: Normal: ??<5.7% Pre-Diabetes: ??5.7% - 6.4% Diagnostic of Diabetes: ??> or = 6.5% (if confirmed) Est Avg Glucose 117 mg/dL 11:37 [facility] Comment:The eAG represents t he A1c result expressed as average glucose in mg/dL. Blood VENOUS BLOOD / Unknown Venipuncture / Unknown 09/25/2023 6:26 EDT 09/25/2023 6:54 EDT Donna Valencia DO CHEMISTRY & BLOOD GAS ORDERABLES [facility] [address] [place] [address] * (ABNORMAL) LIPID PROFILE (INCLUDES CHOLESTEROL, TRIGLYCERIDES, HDL, LDL) (09/25/2023 6:26 EDT) Cholesterol 121 <200 mg/dL 09/25/2023 9:55 [facility] Comment:Note that therapeuti c goals will differ between patients based on cardiac risk factors and current medical therapy. HDL 34(L) >=40 mg/dl 09/25/2023 9:55 [facility] Comment:Note that therapeuti c goals will differ between patients based on cardiac risk factors and current medical therapy. LDL, Calculated 75 <160 mg/dL 9:55 [facility] Comment:Note that therapeuti c goals will differ between patients based on cardiac risk factors and current medical therapy. Triglyceride 58 <=150 mg/dL 09/25/2023 9:55 [facility] Comment:Note that therapeuti c goals will differ between patients based on cardiac risk factors and current medical therapy. Chol/HDL Ratio 3.6 See Note 09/25/2023 9:55 EDT [facility] Comment:No reference range h as been established for CHOL/HDL ratio. Non HDL Cholesterol 87 <160 mg/dL 09/25/2023 9:55 EDT [facility] Comment:Note that therapeuti c goals will differ between patients based on cardiac risk factors and current medical therapy. Blood VENOUS BLOOD / Unknown Venipuncture / Unknown 09/25/2023 6:26 EDT 09/25/2023 6:54 EDT Donna Valencia DO CHEMISTRY & BLOOD GAS ORDERABLES Performing Organization Address [facility]/State/[facility] Co de Phone Number [facility] [address] [place] [phone] * (ABNORMAL) BLOOD GASES, VENOUS (09/24/2023 22:45 EDT) pH, Venous 7.46(H) 7.31 - 7.41 09/24/2023 22:59 T [facility] pCO2, Venous 27(L) 41 - 51 mmHg 09/24/2023 22:59 [facility] pO2, Venous 63(H) 30 - 50 mmHg 09/24/2023 22:59 T [facility] tCO2, Venous 20(L) 22 - 28 mmol/L 09/24/2023 22:59 T [facility] Temperature 35.8 C 09/24/2023 22:59 EDT [facility] O2 Saturation, Venous 91(H) 60 - 85 % 09/24/2023 22:59 T [facility] Oxygen Therapy (FIO2) 0.0 % 09/24/2023 22:59 [facility] Base Level -3.70(L) -2.00 - 3.00 mmol/L 09/24/2023 22:59 T [facility] Blood VENOUS BLOOD / Unknown Venipuncture / Unknown 09/24/2023 22:45 EDT 09/24/2023 22:52 EDT Jessica Gallegos MD CHEMISTRY & BLOOD GA S ORDERABLES [facility] [address], [place] [id number] * (ABNORMAL) SODIUM (09/24/2023 21:02 EDT) Sodium 128(L) 136 - 145 mmol/L 09/24/2023 22:37 EDT [facility] Blood VENOUS BLOOD / Unknown Venipuncture / Unknown 09/24/2023 21:02 EDT 09/24/2023 21:06 EDT Jessica Gallegos MD CHEMISTRY & BLOOD GA S ORDERABLES Performing Organization Address City/[facility]/ZIP Co de Phone Number [facility] [address], [place] [id number] * (ABNORMAL) PHOSPHORUS (09/24/2023 21:02 EDT) Phosphorus 7.8(H) 2.5 - 4.5 mg/dL 09/24/2023 22:37 EDT [facility] Blood VENOUS BLOOD / Unknown Venipuncture / Unknown 09/24/2023 21:02 EDT 09/24/2023 21:06 EDT Jessica Gallegos MD CHEMISTRY & BLOOD GA S ORDERABLES [facility] [address] [place] [address] * (ABNORMAL) BUN (09/24/2023 19:14 EDT) BUN 135(H) 10 - 26 mg/dL 09/24/2023 19:45 EDT [facility] Comment: Slight hemolysis identified, interpret with caution as results may be affected due to hemolysis. Blood VENOUS BLOOD / Unknown Venipuncture / Unknown 09/24/2023 19:14 EDT 09/24/2023 19:16 EDT Latisha Ruvalcaba MD CHEMISTRY & BLOOD GA S ORDERABLES Performing Organization Address [facility]/ZIP Co de Phone Number [facility] [address], [place] [address] * (ABNORMAL) CREATININE (09/24/2023 19:14 EDT) Creatinine 12.37(H) 0.66 - 1.25 mg/dL 09/24/2023 19:31 EDT [facility] Comment:Elevated initial cre atinine or critical change in creatinine value. eGFR 4(L) >60 mL/min/1.7 3m2 09/24/2023 19:31 EDT [facility] Blood VENOUS BLOOD / Unknown Venipuncture / Unknown 09/24/2023 19:14 EDT 09/24/2023 19:16 EDT Latisha Ruvalcaba MD CHEMISTRY & BLOOD GA S ORDERABLES Performing Organization Address [facility] Co de Phone Number [facility] [address] [place] [address] * CT OUTSIDE IMAGES ABDOMEN PELVIS (09/24/2023 18:22 EDT) Narrative 09/24/2023 18:22 EDT This is a non-reportable exam. External Imaging IMG OTHER IMAGING OR DERABLES * (ABNORMAL) UA CHEMICAL & SEDIMENT + REFLEX TO CULTURE (09/24/2023 17:56 EDT) Color UA Yellow Colorless, Yellow 09/24/2023 18:11 EDT [facility] Clarity UA Clear Clear 09/24/2023 18:11 EDT [facility] Glucose UA Negative Negative mg/dL 09/24/2023 18:11 EDT [facility] Bilirubin UA Negative Negative 09/24/2023 18:11 [facility] Ketones UA Trace(A) Negative 09/24/2023 18:11 [facility] Specific [place], Urine 1.008 1.001 - 1.030 09/24/2023 18:11 [facility] Blood UA 3+(A) Negative 09/24/2023 18:11 [facility] Urobilinogen UA 0.2 0.2-1.0 mg/dL mg/dL 09/24/2023 18:11 [facility] Nitrite UA Negative Negative 09/24/2023 18:11 [facility] Leukocyte Esterase UA Trace(A) Negative 09/24/2023 18:11 [facility] Protein UA Negative Negative mg/dL 09/24/2023 18:11 [facility] pH, UA 5.0 5.0 - 8.0 09/24/2023 18:11 [facility] Urine RBC Count, Auto 0 - 2 0 - 2 Cells/HPF 09/24/2023 18:11 [facility] Urine WBC Count, Auto 0 - 3 0 - 3 Cells/HPF 09/24/2023 18:11 [facility] Urine Squamous Count, Auto None Seen None Seen Cells/HPF 09/24/2023 18:11 [facility] Urine Hyaline Cast Count, Auto <=10 <=10 Casts/LPF 09/24/2023 18:11 [facility] Urine Bacteria Count, Auto None Seen None Seen Bacteria/HPF 09/24/2023 18:11 [facility] Urine URINE SPECIMEN OBTAINED BY CLEAN CATCH PROCEDURE / Unknown Urine Collect / Unknown 09/24/2023 17:56 EDT 09/24/2023 18:05 [facility] - 09/24/2023 18:11 EDT NOTE: Reflex to Urine Culture test is not indicated based on Urine Sediment Analysis results. Urine Sediment Analysis results are unreliable on urines that are unrefrigerated for >2 hrs or refrigerated >8 hrs. Juan Mchgee MD MPH URINALYSIS ORDERABL ES Performing Organization Address [facility] Co de Phone Number [facility] [address] [place] [address] * LACTIC ACID WITH REFLEX - USE FOR INITIAL SEPSIS EVALUATION (09/24/2023 17:14 EDT) Lactic Acid 1.6 <=2.0 mmol/L 09/24/2023 17:34 EDT [facility] Blood VENOUS BLOOD / Unknown Venipuncture / Unknown 09/24/2023 17:14 EDT 09/24/2023 17:19 EDT Juan Mcghee MD MPH CHEMISTRY & BLOOD G ORDERABLES Performing Organization Address [facility] de Phone Number [facility] [address] [place] [address] * (ABNORMAL) MAGNESIUM (09/24/2023 17:14 EDT) Magnesium 3.2(H) 1.7 - 2.8 mg/dL 09/24/2023 18:17 EDT [facility] Comment:Slight hemolysis steve ntified, interpret with caution as results may be affected due to hemolysis. Blood VENOUS BLOOD / Unknown Venipuncture / Unknown 09/24/2023 17:14 EDT 09/24/2023 17:19 EDT Juan Mcghee MD MPH CHEMISTRY & BLOOD G ORDERABLES Performing Organization Address [facility]/ZIP Co de Phone Number [facility] [address] [place] [address] * (ABNORMAL) COMPREHENSIVE METABOLIC PANEL (CMP) (09/24/2023 17:14 EDT) Sodium 122(LL) 136 - 145 mmol/L 09/24/2023 18:46 EDT [facility] Potassium 5.4(H) 3.5 - 5.0 mmol/L 09/24/2023 18:46 [facility] Chloride 85(L) 96 - 110 mmol/L 09/24/2023 18:46 [facility] CO2 Total 12(L) 22 - 32 mmol/L 09/24/2023 18:46 [facility] Glucose 92 70 - 99 mg/dl 09/24/2023 18:46 [facility] BUN >120(H) 10 - 26 mg/dL 09/24/2023 18:46 [facility] Comment: NOTE: Unable to report final result due to short sample volume. ??Interpret with caution. Creatinine 09/24/2023 18:46 [facility] Comment:Specimen quantity no t sufficient for analysis. eGFR 09/24/2023 18:46 [facility] Total Protein 7.6 6.3 - 8.2 g/dL 09/24/2023 18:46 [facility] Albumin 4.1 3.4 - 4.9 g/dL 09/24/2023 18:46 [facility] Alkaline Phosphatase 57 38 - 126 U/L 09/24/2023 18:46 [facility] AST 21 15 - 46 U/L 09/24/2023 18:46 [facility] ALT 14 <50 U/L 09/24/2023 18:46 [facility] Bilirubin, Total 0.7 <1.4 mg/dL 09/24/19 24 18:46 [facility] Calcium 8.6 8.5 - 10.5 mg/dL 09/24/2023 18:46 [facility] Albumin/Globulin Ratio 1.2 1.0 - 2.5 09/24/2023 18:46 [facility] Anion Gap 25(H) 5 - 14 mmol/L 09/24/2023 18:46 [facility] Blood VENOUS BLOOD / Unknown Venipuncture / Unknown 09/24/2023 17:14 EDT 09/24/2023 17:19 EDT Luke Wohlford MD MPH CHEMISTRY & BLOOD G ORDERABLES Performing Organization Address City/[facility]/ZIP Co de Phone Number [facility] [address] [place] [address] * MANUAL HEMATOCRIT (09/24/2023 17:13 EDT) Blood VENOUS BLOOD / Unknown Venipuncture / Unknown 09/24/2023 17:13 EDT 09/24/2023 17:19 EDT Juan Mcghee MD MPH HEMATOLOGY & PF4 OR DERABLES Performing Organization Address City/[facility]/ZIP Co de Phone Number [facility] [address], [place] [address] * (ABNORMAL) COMPLETE BLOOD COUNT AND DIFFERENTIAL (09/24/2023 17:13 EDT) WBC 7.76 4.00 - 10.40 K/cmm 09/24/2023 18:20 [facility] RBC 4.23(L) 4.36 - 5.78 M/cmm 09/24/2023 18:20 [facility] Hemoglobin 09/24/2023 18:20 [facility] Comment:Hemoglobin not avail able due to optical interference in patient specimen attributable to hemolysis. HCT 35.6(L) 39.5 - 50.2 % 09/24/2023 18:20 [facility] Comment: Slight hemolysis present MCV 84 81 - 95 fL 09/24/2023 18:20 [facility] Comment: MCH 09/24/2023 18:20 [facility] Comment:Could not be calcula cristina due to unreportable hemoglobin. Hypochromia 09/24/2023 18:20 [facility] MCHC 09/24/2023 18:20 [facility] Comment:Could not be calcula cristina due to unreportable hemoglobin. RDW-CV 11.7 <14.2 % 09/24/2023 18:20 [facility] RDW-SD 35.4 <46.0 fl 09/24/2023 18:20 [facility] Anisocytosis 09/24/2023 18:20 [facility] PLT 318 141 - 377 K/cmm 09/24/2023 18:20 [facility] MPV 9.6 9.5 - 12.7 fL 09/24/2023 18:20 [facility] % Neutrophils 81.9 % 09/24/2023 18:20 [facility] % Lymphocytes 11.1 % 09/24/2023 18:20 [facility] % Monocytes 6.2 % 09/24/2023 18:20 [facility] % Eosinophils 0.1 % 09/24/2023 18:20 [facility] % Basophils 0.3 % 09/24/2023 18:20 [facility] % Immature Grans 0.4 % 09/24/19 18:20 [facility] Absolute Neutrophils 6.36 2.20 - 8.85 K/cmm 09/24/2023 18:20 [facility] Absolute Lymphocytes 0.86(L) 1.09 - 3.30 K/cmm 09/24/2023 18:20 [facility] Absolute Monocytes 0.48 0.10 - 0.80 K/cmm 09/24/2023 18:20 [facility] Absolute Eosinophils 0.01(L) 0.03 - 0.61 K/cmm 09/24/2023 18:20 [facility] ABS Basophils 0.02 0.01 - 0.11 K/cmm 09/24/2023 18:20 [facility] Absolute Immature Grans 0.03 0.00 - 0.06 K/cmm 09/24/2023 18:20 [facility] Type of Differential: Auto 09/24/2023 18:20 [facility] Blood VENOUS BLOOD / Unknown Venipuncture / Unknown 09/24/2023 17:13 EDT 09/24/2023 17:19 EDT Juan Mcghee MD MPH PACKAGES & DNA PROB E ORDERABLES [facility] [address] [place] [id number] * EKG 12-LEAD (09/24/2023 17:06 EDT) 09/24/2023 17:0 6 EDT Narrative [facility] - 09/25/2023 9:43 EDT ?[facility] ? Test Date: ?2023-09-24 Pat Name: ? LISANDRA HOLLIS ? Department: ?? ED ? Room: ? AC08 Gender: ? Male ? Culture Manager: ?? [id number] : ?1945 ? Requested By: ROSMERY CRYSTAL R Order Number: [id number] ? Natty PENA: ?? CHEVY BOLTON MD ? Measurements Intervals ?Geary ? Rate: ? 97 ? P: ?0 NC: ? 0 ?QRS: ?27 QRSD: ? 89 ? T: ?52 QT: ? 324 ? QTc: ?412 ? Interpretive Statements ATRIAL FIBRILLATION ABNORMAL EKG I reviewed the tracing and have either agreed or edited the findings in this report. Electronically Signed On 09-25-2023 09:43:32 EDT by CHEVY BOLTON MD. Procedure Note Chevy Bolton MD - 09/25/2023 [facility] Test Date: 2023-09-24 Pat Name: LISANDRA HOLLIS Department: ED Room: [facility] Gender: Male Culture Manager: [id number] : 1945 Requested By: ROSMERY Mendez Order Number: [id number] Reading MD: CHEVY BOLTON MD Measurements Intervals Geary Rate: 97 P: 0 NC: 0 QRS: 27 QRSD: 89 T: 52 QT: 324 QTc: 412 Interpretive Statements ATRIAL FIBRILLATION ABNORMAL EKG I reviewed the tracing and have either agreed or edited the findings inthis report. Electronically Signed On 09-25-2023 09:43:32 EDT by SUSAN PENA. Latisha Ruvalcaba MD CARDIAC ECG ORDERABL ES [facility] * EKG 12-LEAD (09/24/2023 16:53 EDT) 09/24/2023 16:5 3 EDT Narrative [facility] - 09/25/2023 9:51 EDT ?[facility] ? Test Date: ?2023-09-24 Pat Name: ? LISANDRA HOLLIS ? Department: ?? ED ? Room: ? AC08 Gender: ? Male ? Culture Manager: ?? [id number] : ?1945 ? Requested By: MODESTO MAZA Order Number: [id number] ? Reading MD: ?? CHEVY BOLTON MD ? Measurements Intervals ?Geary ? Rate: ? 51 ? P: ?-39 NC: ? 195 ?QRS: ?17 QRSD: ? 98 ? T: ?33 QT: ? 461 ? QTc: ?425 ? Interpretive Statements SINUS BRADYCARDIA NONSPECIFIC ST & T-WAVE ABNORMALITY POOR R WAVE PROGRESSION LOW VOLTAGE, PRECORDIAL LEADS ABNORMAL EKG I reviewed the tracing and have either agreed or edited the findings in this report. Electronically Signed On 09-25-2023 09:51:54 EDT by CHEVY BOLTON MD. Procedure Note Chevy Bolton MD - 09/25/2023 [facility] Test Date: 2023-09-24 Pat Name: LISANDRA HOLLIS Department: ED Room: [facility] Gender: Male Culture Manager: [id number] : 1945 Requested By: MODESTO MAZA Order Number: [id number] Reading MD: CHEVY BOLTON MD Measurements Intervals Geary Rate: 51 P: -39 NC: 195 QRS: 17 QRSD: 98 T: 33 QT: 461 QTc: 425 Interpretive Statements SINUS BRADYCARDIA NONSPECIFIC ST & T-WAVE ABNORMALITY POOR R WAVE PROGRESSION LOW VOLTAGE, PRECORDIAL LEADS ABNORMAL EKG I reviewed the tracing and have either agreed or edited the findings inthis report. Electronically Signed On 09-25-2023 09:51:54 EDT by SUSAN PENA. Juan Mcghee MD MPH CARDIAC ECG ORDERAB LES [facility] EKG from Last 3 Months Advance Directives For more information, please contact: [phone] * Full Code (Latest Code Status on File) Date Activated Date Inactivated Comments 09/25/2023 0:01 09/30/2023 17:31 Question Answer Comments When the patient has NO PULSE: Full Code / CPR Who Made the Decision? Patient * Full Code Date Activated Date Inactivated Comments 09/24/2023 23:43 09/25/2023 0:01 Question Answer Comments When the patient has NO PULSE: Full Code / CPR Who Made the Decision? Default/Not Discussed Care Teams Acid Bath Mixer Relationship Specialty Start Date End Date Sasha Garg MD [address] [place] [address] PCP - General Internal Medicine - Primary Care 10/02/23 Jigna Chapman MD [address] [facility] [address] [place] [address] PCP - Alternate Internal Medicine - Primary Care 10/02/23
--- OUTSIDE RECORDS SUMMARY | 2023-10-07 16:18 | XMS_ITS | Encounter Summary ---
Author Organization [facility] Address [address] [place] [address] Care Team Providers Care High Density Press Operator Name Role Phone Sasha Garg MD Primary Care Provider [phone] Jigna Chapman MD Unavailable [phone] Reason for Visit * Reason Onset Date Comments Hospital Discharge Follow Up 10/03/2023 Encounter Details Date Type Department Care Team (Late st Contact Info) Description 10/03/2023 Telephone [facility] Adult Primary Care - [address] [phone] Imelda Kimble RN Hospital Discharge Follow Up Social History Tobacco Use Types Packs/Day Years [...] any time in the past 12 m onths, were you homeless or living in a longterm (including now)? No 09/28/2023 Interpersonal Safety Answer Date Record ed How often does anyone, inclu ding family, hit, punch or physically hurt you? 09/26/2023 How often does anyone, amy mejia family, insult, scream, curse or threaten to hurt you? 09/26/2023 Sex and Gender Information Value Date Recorded Sex Assigned at Male 10/05/2023 21:45 EDT Gender Identity Male 09/24/2023 16:53 EDT Sexual Orientation Straight 10/05/2023 21 :45 EDT documented as of this encounter Functional Status Functional Status Response Date of Assess ment Are you deaf or do you have serious difficulty h earing? No 09/25/2023 Are you blind or do you have serious difficulty seeing, even when wearing glasses? No 09/25/2023 Do you have serious difficul ty walking or climbing stairs? (5 years old or older) No 09/25/2023 Do you have difficulty dress ing or bathing? (5 years old or older) No 09/25/2023 Because of a physical, menta l, or emotional condition, do you have difficulty doing errands alone such as visiting a doctor's office or shopping? (15 years old or older) No 09/25/2023 Cognitive Status Response Date of Assessm ent Because of a physical, menta l, or emotional condition, do you have serious difficulty concentrating, remembering, or making decisions? (5 years old or older) No 09/25/2023 documented as of this encounter Miscellaneous Notes * Telephone Encounter - Imelda Kimble RN - 10/04/2023 1410 EDT Patient calling back to say that he now has a scheduled appointment with [facility] Urology for 10/09/23. IMELDA KIMBLE RN * Telephone Encounter - Imelda Kimble RN - 10/04/2023 1029 EDT Patient calling back. Noted difficulty hearing on the phone. He says that he is doing well. Confirmed that he has been taking the new medications as prescribed at the time of discharge and is not experiencing any side effects. He still has the Murillo catheter in place. Confirmed that it is patent and he is not experiencing any difficulty with it. Discussed with him the importance of Urology follow up. He was scheduled for catheter removal on 09/30/23 but he says that he and his had mistakenly cancelled the appointmentbecause they did not know what it was for. The appointment was scheduled as a procedure appointmentonly not with a provider and was rescheduled to 11/13/23; however in review of the Transition of Care plan the catheter was to be removed 3-4 days after the time of discharge. Patient says that he and his are trying to locate a Urologist locally near where they live in the [facility]. It is unclear how soon he would be able to be seen. The phone number to [facility] Urology was provided and he was instructed to call for further direction. He also was made aware that he is scheduled to see a provider here at [facility] on 10/11/23 to establish care. He does not currently have a PCP. Patient mentioned that he uses [facility]. He is trying to arrange for transportation with them to the appointment next week, but he stated that he thinks that [facility] may need a statement from our clinic confirming he has the appointment. He orhis will call back after they clarify this to let us know what is needed. Reviewed Discharge plan. Patient did verbalize understanding of the need for follow up with Urologyand Primary Care. He had declined home health services as he and his did not think that he would need any assistance. He was made aware that the referral was made due to the murillo catheter that he was allowed to be discharged home with and also for Cardiopulmonary monitoring due to the new findings of Atrial flutter and low blood pressure observed during his hospitalization. Patient denied any palpitations, chest pain or shortness of breath. He is picking up the Holter monitor device that was delivered [facility] [employer] today. Routing to Dr. Garg to review the above prior to 10/11/23. IMELDA KIMBLE RN * Telephone Encounter - Imelda Kimble RN - 10/03/2023 1630 EDT Hospital Discharge call made - Left message for the patient to call our office and speak with a nurse to review their discharge instructions, medications. Attempted to reach the patient at his listed phone numbers in EHR. Voice mail message was left at the listed home phone number. The cell phone number has an outgoing message that states DO NOT LEAVEA VOICE MAIL MESSAGE, but to text a message. No message left. His [employer] account is active. [facility] message also sent requesting that he call the clinic to review his hospital discharge instructions and follow up. Hospital Discharge Follow Up: Admission Date: 09/24/23 Discharge Date: 09/30/23 Risk Assessment: low 2% Reason for admission: Acute Obstructive Uropathy -Post obstructive MANUELITO, electrolyte abnormalities - NSTEMI-resolved 09/25/23 Clinical Issues Needing Follow-up 1. Pertinent medication changes: -Finasteride 5 mg daily - Tamsulosin 0.4 mg at bedtime - Diltiazem 30 mg BID 2. Recommended follow-up tests/procedures needed: - Resident clinic in [place] with Dr. Makayla Garcia -Urgent urology clinic referral for Murillo removal -Extended Holter Monitor and Ambulatory follow up cardiology EPS - Outpatient urology appointment to 11/13/[address] Horvath, potential reschedule with provider closer to home, if available - Cystoscopy iso hematuria - CT renal mass protocol - Follow up MANUELITO - trial of void/BPH 3. Anticoagulation on discharge: No - patient declined initiation of heparin with bridge to apixaban with preference to discharge 4. Changes to goals of care at time of discharge (if applicable): N/A Follow-up visit scheduled? Scheduled for NPV with Dr. Sasha Garg for 10/11/23 IMELDA KIMBLE RN 10/03/2023 documented in this encounter Plan of Treatment Upcoming Encounters Date Type Department Care Team (Late st Contact Info) Description 10/09/2023 11:20 EDT Post-op Visit [facility] Urology - [address] [id number] Ricardo Wright MD [address], [address] [place] [phone] 10/09/2023 11:30 EDT Nurse Only [facility] Urology - [address] [phone] Nurse, [facility] 10/11/2023 14:00 EDT Office Visit [facility] Adult Primary Care [address] [phone] Sasha Garg MD [address] [place] [phone] 10/31/2023 11:30 EDT Appointment [facility] Radiology CT - [address] [phone] documented as of this encounter Visit Diagnoses Not on filedocumented in this encounter Care Teams High Density Press Operator Relationship Specialty Start Date End Date Sasha Garg MD [address] [place] [id number] PCP - General Internal Medicine - Primary Care 10/02/23 Jigna Chapman MD [address] [place] [address] [address] [place] [phone] PCP - Alternate Internal Medicine - Primary Care 10/02/23 documented as of this encounter
--- OUTSIDE RECORDS SUMMARY | 2023-10-07 16:18 | XMS_ITS | Encounter Summary ---
Author Organization [facility] Address [address] [place] [address] Care Team Providers Care Agent Producer Name Role Phone Sasha Garg MD Primary Care Provider [phone] Jigna Chapman MD Unavailable [phone] Reason for Visit * Reason Onset Date Comments Requesting Sooner Appointment 10/04/2023 Encounter Details Date Type Department Care Team (Late st Contact Info) Description 10/04/[address] [facility] Urology - [facility] [address] [place], [place] [phone] Nurse, [facility] Requesting Sooner Appointment Social History Tobacco Use Types Packs/Day Years [...] any time in the past 12 m ont, were you homeless or living in a prison (including now)? No 09/28/2023 Interpersonal Safety Answer [...] No 09/25/2023 documented as of this encounter Ordered Prescriptions Prescription Sig Dispensed Refills Start Date End Da te finasteride (PROSCAR) 5 mg tablet Take 1 Tablet by mouth daily. 30 Tablet 2 10/04/2023 TAMSulosin (FLOMAX) 0.4 mg capsule Take 1 Capsule by mouth at bedtime. 30 Capsule 2 10/04/2023 documented in this encounter Miscellaneous Notes * Telephone Encounter - Sukhwinder Madrigal - 10/04/2023 1049 EDT Patient would like a nurse to call him he stated he has a catheter in place and was under the impression he would get a call to have it taken out next week and has not yet. I have him scheduled to see Dr Horvath after his CT in beginning of November, He is very confused about what appointments arewhere and with you however he wants the do jackelynkey taken out of his private parts. documented in this encounter Plan of Treatment Upcoming Encounters Date Type Department Care Team (Late st Contact Info) Description 10/09/2023 11:20 EDT Post-op Visit [facility] Urolog[address] [phone] Ricardo Wright MD [address], [address] [place] [phone] 10/09/2023 11:[address] [facility]rolog[address] [phone] Nurse, [facility] U[facility] 10/11/2023 14:[address] [facility] Adult Primary Care [address] [phone] Sasha Garg MD [address] [place] [phone] 10/31/2023 11:30 EDT [facility]ointment [facility] [address] [id number] documented as of this encounter Visit Diagnoses Not on filedocumented in this encounter Discontinued Medications Medication Sig Discontinue Reason Start Date End Da te TAMSulosin (FLOMAX) 0.4 mg capsule Take 1 Capsule by mouth at bedtime for 30 days. Reorder 09/30/2023 10/04/2023 finasteride (PROSCAR) 5 mg tablet Take 1 Tablet by mouth daily. Reorder 10/01/2023 10/04/2023 documented as of this encounter Care Teams Agent Producer Relationship Specialty Start Date End Date Sasha Garg MD [address] [place] [phone] PCP - General Internal Medicine - Primary Care 10/02/23 Jigna Chapman MD [address] [facility] [address] [place] [phone] PCP - Alternate Internal Medicine - Primary Care 10/02/23 documented as of this encounter
--- OUTSIDE RECORDS SUMMARY | 2023-10-07 16:18 | XMS_ITS | Referral Summary ---
Author Organization [facility] Address [address] [place] [address] Care Team Providers Care Television Audio Engineer Name Role Phone Sasha Garg MD Primary Care Provider [phone] Jigna Chapman MD Unavailable Encounters Date Type Department Care Team Description 10/04/2023 Telephone [facility] Urology - [address] [phone] Nurse, Ep5 Urology Requesting Sooner Appointment 10/03/2023 Telephone [facility] Adult Primary Care [address] [phone] Imelda Kimble, [facility] Discharge Follow Up 10/02/2023 9:18 EDT - 10/02/2023 23:59 EDT Hospital Encounter [facility] Non-Invasive Cardiology - [address] [phone] Typical atrial flutter (HCC-CMS) Discharge Disposition: Home or Self Care 09/24/2023 16:13 EDT - 09/30/2023 15:27 EDT Hospital Encounter [place] [address] General Medicine Telemetry Unit [address] [place], [place] [phone] Latisha Ruvalcaba MD Lambirth, Shea P, MD Riser, MD EDIN Madsen Caitlin J, DO Farkas, Joshua D, MD Levit, Taqueria, DO Kimbrough-Maulik, Lalo J, MD Acute bilateral obstructive uropathy (Primary Dx); Acute renal failure, unspecified acute renal failure type ([facility]-CMS); Hyponatremia; NSTEMI (non-ST elevated myocardial infarction) ([facility]-CMS); Urinary retention; Typical atrial flutter ([facility]-CMS); MANUELITO (acute kidney injury) ([facility]) Discharge Disposition: Home-Health Care Sv 09/26/2023 Orders Only [facility] Radiology - Main [address] [address] Chris Montgomery MD 09/24/2023 18:14 EDT - 09/24/2023 23:59 EDT Hospital Encounter [facility] Secondary Reads [place] Discharge Disposition: Home or Self Care 09/24/2023 Travel from Last 3 Months Allergies Active Allergy Reactions Criticality Noted Date Comments Basil Swelling,GI upset High 09/25/2023 Pt states I have a head to toe negative reaction Marcial Tutwiler-Tree Swelling,GI upset High 09/25/2023 Pt states that [...] Diagnosed Date Typical atrial flutter ([facility]-CMS) 09/29/2023 Acute bilateral obstructive uropathy 09/25/2023 Urinary retention 09/25/2023 Resolved Problems Problem Noted Date Diagnosed Date Resolved Date Acute renal failure, unspeci fied acute renal failure type ([facility]) 09/25/2023 09/29/2023 Hyponatremia 09/25/2023 09/29/2023 NSTEMI (non-ST elevated myoc ardial infarction) ([facility]) 09/25/2023 09/29/2023 Acute renal failure ([facility]) 09/24/2023 09/29/2023 MANUELITO (acute kidney injury) ([facility]) 09/24/2023 09/29/2023 Social History Tobacco Use Types Packs/Day Years [...] any time in the past [address] [facility], were you homeless or living in a penitentiary (including now)? No 09/28/2023 Interpersonal Safety Answer Date Record ed How often does anyone, inclu jackie family, hit, punch or physically hurt you? 09/26/2023 How often does anyone, inclu ding family, insult, scream, curse or threaten to hurt you? 09/26/2023 Sex and Gender Information Value Date Recorded Sex Assigned at Male 10/05/2023 21:45 EDT Gender Identity Male 09/24/2023 16:53 EDT Sexual Orientation Straight 10/05/2023 21 :45 EDT Last Filed Vital Signs Vital Sign Reading [...] Body Mass Index 26.36 09/25/2023 0800 EDT Functional Status Functional Status Response Date of [...] (5 years old or older) No 09/25/2023 Plan of Treatment Upcoming Encounters Date Type Department Care Team (Late st Contact Info) Description 10/09/2023 11:20 EDT Post-op Visit [address] [phone] Ricardo Wright MD [address], [address] [place] [phone] 10/09/2023 11:30 EDT Nurse Only [address] [phone] Nurse, Ep5 Urology 10/11/2023 14:00 EDT Office Visit [facility] Adult Primary Care - [place] [address] [place], [place] [phone] Sasha Garg MD [address] [place], [place] [phone] 10/31/2023 11:30 EDT [facility]ointment [facility] Radiology CT - [facility] [address] [place] [address] Procedures Procedure Name Priority Date/Time Associated Diagnosis [...] EDT) 10/03/2023 15:1 5 EDT Scan 2 Pants Busheler PROCEDURE/MINOR DANIEL GICAL ORDERABLES * ECG REPORT - SCANNED (10/03/2023 14:44 EDT) 10/03/2023 14:4 4 EDT Scan 2 Pants Busheler PROCEDURE/MINOR DANIEL GICAL ORDERABLES * ECG REPORT - SCANNED (10/03/2023 13:34 EDT) 10/03/2023 13:3 4 EDT Scan 2 Pants Busheler PROCEDURE/MINOR DANIEL GICAL ORDERABLES * ECG REPORT - SCANNED (10/02/2023 22:21 EDT) 10/02/2023 22:2 1 EDT Scan 2 Pants Busheler PROCEDURE/MINOR DANIEL GICAL ORDERABLES * ECG REPORT - SCANNED (10/02/2023 13:45 EDT) 10/02/2023 13:4 5 EDT Scan 2 Pants Busheler PROCEDURE/MINOR DANIEL GICAL ORDERABLES * ECG REPORT - SCANNED (09/30/2023 17:45 EDT) 09/30/2023 17:4 5 EDT Scan 2 Pants Busheler PROCEDURE/MINOR DANIEL GICAL ORDERABLES * HEPARIN LEVEL - UNFRACTIONATED HEPARIN (09/30/2023 10:26 EDT) Heparin Level-UFH 0.12 Therapeutic Range: 0.30 - 0.70 IU/mL 09/30/2023 11:00 EDT [facility] Blood VENOUS BLOOD / Unknown Venipuncture / Unknown 09/30/2023 10:26 EDT 09/30/2023 10:34 EDT Narrative [facility] - 09/30/2023 11:00 EDT Sample retested, result confirmed Lalo Ramires MD HEMATOLOGY & PF4 O RDERABLES [facility] [address] [place] [address] * (ABNORMAL) COMPLETE BLOOD COUNT (09/30/2023 6:15 EDT) Only the most recent of6 resultswithin the time period is included. WBC 9.06 4.00 - 10.40 K/cmm 09/30/2023 6:29 [facility] RBC 3.70(L) 4.36 - 5.78 M/cmm 09/30/2023 6:29 [facility] Hemoglobin 11.7(L) 13.8 - 17.3 g/dL 09/30/2023 6:29 [facility] HCT 34.0(L) 39.5 - 50.2 % 09/30/2023 6:29 [facility] MCV 92 81 - 95 fL 09/30/2023 6:29 [facility] MCH 31.6 27.6 - 33.0 pg 09/30/2023 6:29 [facility] MCHC 34.4 32.8 - 36.4 g/dL 09/30/2023 6:29 [facility] RDW-CV 11.9 <14.2 % 09/30/2023 6:29 [facility] RDW-SD 39.9 <46.0 fl 09/30/2023 6:29 [facility] PLT 282 141 - 377 K/cmm 09/30/2023 6:29 [facility] MPV 8.9(L) 9.5 - 12.7 fL 09/30/2023 6:29 [facility] Blood VENOUS BLOOD / Unknown Venipuncture / Unknown 09/30/2023 6:15 EDT 09/30/2023 6:21 EDT Rene Miller DO HEMATOLOGY & PF4 ORD ERABLES [facility] [address] [place] [address] * (ABNORMAL) BASIC METABOLIC PANEL (BMP) (09/30/2023 6:15 EDT) Only the most recent of20 resultswithin the time period is included. Sodium 135(L) 136 - 145 mmol/L 09/30/2023 7:16 T [facility] Potassium 4.8 3.5 - 5.0 mmol/L 09/30/2023 7:16 [facility] Chloride 105 96 - 110 mmol/L 09/30/2023 7:16 [facility] CO2 Total 21(L) 22 - 32 mmol/L 09/30/2023 7:16 [facility] Anion Gap 9 5 - 14 mmol/L 09/30/2023 7:16 [facility] Glucose 99 70 - 99 mg/dl 09/30/2023 7:16 [facility] Calcium 8.3(L) 8.5 - 10.5 mg/dL 09/30/2023 7:16 [facility] BUN 14 10 - 26 mg/dL 09/30/2023 7:16 [facility] Creatinine 0.68 0.66 - 1.25 mg/dL 09/30/2023 7:16 [facility] eGFR 95 >60 mL/min/1.73 m2 09/30/2023 7:16 [facility] Blood VENOUS BLOOD / Unknown Venipuncture / Unknown 09/30/2023 6:15 EDT 09/30/2023 6:24 EDT Vitaly Valencia DO CHEMISTRY & BLOOD GAS ORDERABLES Performing Organization Address [facility]/State/[facility] Co de Phone Number [facility] [address] [place] [address] * EKG 12-LEAD (09/29/2023 19:02 EDT) 09/29/2023 19:0 2 EDT Narrative [facility] - 10/03/2023 15:01 EDT ? [facility] ? Test Date: ?2023-09-29 Pat Name: ? LISANDRA HOLLIS ? Department: ?? [place] [address] ? Room: ? M626 Gender: ? Male ? Site Foreman: ?? [id number] : ?1945 ? Requested By: RUPESH RGIN J Order Number: [id number] ? Reading MD: ?? FRIEDERIKE ISAAC MD ? Measurements Intervals ?Babb ? Rate: ? 67 ? P: ?0 GA: ? 0 ?QRS: ?45 QRSD: ? 92 [...] Note Catrachito Gray MD - 10/03/2023 [facility] Test Date: 2023-09-29 Pat Name: [facility] Department: [place] [address] Room: [facility] Gender: Male Site Foreman: [id number] : 1945 Requested By: RUPESH Diaz Order Number: [id number] Reading MD: CATRACHITO LORD Measurements Intervals Babb Rate: 67 P: 0 GA: 0 QRS: 45 QRSD: 92 T: 32 QT: 367 QTc: 389 Interpretive Statements ATRIAL FLUTTER/TACHYCARDIA ABNORMAL RHYTHM ECG Compared to ECG 09/28/2023 11:46:59 No significant change I reviewed the tracing and have either agreed or edited the findings inthis report. Electronically Signed On 10-03-2023 15:01:04 EDT by CATRACHITO GRAY MD. Vitaly Valencia DO CARDIAC ECG ORDER ARDEN [facility] * ECG REPORT - SCANNED (09/28/2023 14:34 EDT) 09/28/2023 14:3 4 EDT Scan 2 Pants Busheler PROCEDURE/MINOR DANIEL GICAL ORDERABLES * EKG 12-LEAD (09/28/2023 11:46 EDT) 09/28/2023 11:4 6 EDT Narrative [facility] - 10/02/2023 13:36 EDT ? [facility] ? Test Date: ?2023-09-28 Pat Name: ? LISANDRA HOLLIS ? Department: ?? [address] ? Room: ? M626 Gender: ? Male ? Site Foreman: ?? [id number] : ?1945 ? Requested By: RUPESH Diaz Order Number: [id number] ? Reading MD: ?? JORDON SALINAS MD ? Measurements Intervals ?Babb ? Rate: ? 97 ? P: ?0 GA: ? 0 ?QRS: ?20 QRSD: ? 90 ? T: ?32 QT: ? 326 ? QTc: ?415 ? Interpretive Statements ATRIAL FLUTTER Compared to ECG 09/27/2023 10:14:33 No significant changes I reviewed the tracing and have either agreed or edited the findings in this report. Electronically Signed On 10-02-2023 13:36:25 EDT by JORDON SALINAS MD. Procedure Note Jordon Salinas MD - 10/02/2023 [facility] Test Date: 2023-09-28 Pat Name: LISANDRA HOLLIS Department: [place] [address] Room: [facility] Gender: Male Site Foreman: [id number] : 1945 Requested By: RUPESH Diaz Order Number: [id number] Reading MD: JORDON SALINAS MD Measurements Intervals Babb Rate: 97 P: 0 GA: 0 QRS: 20 QRSD: 90 T: 32 QT: 326 QTc: 415 Interpretive Statements ATRIAL FLUTTER Compared to ECG 09/27/2023 10:14:33 No significant changes I reviewed the tracing and have either agreed or edited the findings inthis report. Electronically Signed On 10-02-2023 13:36:25 EDT by JORDON RYAN. Vitaly Valencia DO CARDIAC ECG ORDER ARDEN [facility] * EKG 12-LEAD (09/27/2023 10:14 EDT) 09/27/2023 10:1 4 EDT Narrative [facility] - 09/30/2023 17:23 EDT ? [facility] ? Test Date: ?2023-09-27 Pat Name: ? LISANDRA HOLLIS ? Department: ?? [address] ? Room: ? M626 Gender: ? Male ? Site Foreman: ?? [id number] : ?1945 ? Requested By: RUPESH Diaz Order Number: [id number] ? Reading MD: ?? REGINALD DARIA MD ? Measurements Intervals ?Babb ? Rate: ? 107 ?P: ?0 GA: ? 0 ?QRS: ?33 QRSD: ? 90 [...] Note Reginald Huff MD - 09/30/2023 [facility] Test Date: 2023-09-27 Pat Name: LISANDRA HOLLIS Department: [place] [address] Room: [facility] Gender: Male Site Foreman: [id number] : 1945 Requested By: RUPESH Diaz Order Number: [id number] Reading MD: REGINALD HUFF MD Measurements Intervals Babb Rate: 107 P: 0 GA: 0 QRS: 33 QRSD: 90 T: 15 QT: 321 QTc: 428 Interpretive Statements ATRIAL FLUTTER/TACHYCARDIA WITH RAPID VENTRICULAR RESPONSE ABNORMAL RHYTHM ECG Compared to ECG 09/25/2023 20:25:23 T-wave abnormality no longer present I reviewed the tracing and have either agreed or edited the findings inthis report. Electronically Signed On 09-30-2023 17:23:27 EDT by REGINALD FONTENOT. Vitaly Valencia DO CARDIAC ECG ORDER [facility]DEN [facility] * EKG 12-LEAD (09/25/2023 20:25 EDT) 09/25/2023 20:2 5 EDT Narrative [facility] - 09/28/2023 14:19 EDT ? [facility] ? Test Date: ?2023-09-25 Pat Name: ? LISANDRA HOLLIS ? Department: ?? Subha Cardenas ? Room: ? M401 Gender: ? Male ? Site Foreman: ?? : ?1945 ? Requested By: JODIE RAMIRES D Order Number: [id number] ? Reading MD: ?? TRACE CHAPARRO MD ? Measurements Intervals ?Babb ? Rate: ? 134 ?P: ?0 GA: ? 0 ?QRS: ?66 QRSD: ? 87 [...] Note Riley Chaparro MD - 09/28/2023 [facility] Test Date: 2023-09-25 Pat Name: LISANDRA HOLLIS Department: [place] [address] Room: [facility] Gender: Male Site Foreman: : 1945 Requested By: JODIE Barone Order Number: [id number] Reading MD: RILEY CHAPARRO MD Measurements Intervals Babb Rate: 134 P: 0 GA: 0 QRS: 66 QRSD: 87 T: 0 [...] Selvin Ramirez MD CARDIAC ECG ORDERABL ES [facility] * MRSA PCR (09/25/2023 17:53 EDT) MRSA/Staph aureus Result No Staphylococcus aureus detected by PCR 09/25/2023 23:15 EDT [facility] Swab BOTH ANTERIOR NARES / Unknown Swab / Unknown 09/25/2023 17:53 EDT 09/25/2023 18:12 EDT Selvin Ramirez MD MICROBIOLOGY - GENER AL ORDERABLES Performing Organization Address [facility] Co de Phone Number [facility] [address] [place] [address] * (ABNORMAL) ELECTROLYTES (09/25/2023 17:52 EDT) Sodium 125(L) 136 - 145 mmol/L 09/25/2023 18:13 EDT [facility] Potassium 4.4 3.5 - 5.0 mmol/L 09/25/2023 18:13 EDT [facility] Chloride 89(L) 96 - 110 mmol/L 09/25/2023 18:13 EDT [facility] CO2 Total 27 22 - 32 mmol/L 09/25/2023 18:13 EDT [facility] Anion Gap 9 5 - 14 mmol/L 09/25/2023 18:13 EDT [facility] Blood VENOUS BLOOD / Unknown Venipuncture / Unknown 09/25/2023 17:52 EDT 09/25/2023 17:58 EDT Selvin Ramirez MD CHEMISTRY & BLOOD GA S ORDERABLES Performing Organization Address [facility]/ZIP Co de Phone Number [facility] [address] [place] [address] * ECG REPORT - SCANNED (09/25/2023 10:07 EDT) 09/25/2023 10:0 7 EDT Scan 2 Pants Busheler PROCEDURE/MINOR DANIEL GICAL ORDERABLES * TRANSTHORACIC ECHO [...] color Doppler.The study was interpreted by [facility]. Pertinent images and digital data are archived for permanent storage and are available for subsequent review. Scanning was performed from the apical, parasternal and subcostal acoustic windows. Overall the study quality was poor. The study was difficult due to patient uncooperativeness, clinical status and body habitus. Images were obtained using cardiac ultrasound machine EPIQ #10. Vitaly Valencia DO CARDIAC ECHO TASHAE GOVERO * ECG REPORT - SCANNED (09/25/2023 9:56 EDT) 09/25/2023 9:56 EDT Scan 2 Pants Busheler PROCEDURE/MINOR DANIEL GICAL ORDERABLES * (ABNORMAL) TROPONIN I (09/25/2023 6:26 EDT) Only the most recent of3 resultswithin the time period is included. Troponin I (ng/mL) 0.065(H) <0.034 ng/mL 09/25/2023 7:27 EDT [facility] Blood VENOUS BLOOD / Unknown Venipuncture / Unknown 09/25/2023 6:26 EDT 09/25/2023 6:54 EDT Narrative [facility] - 09/25/2023 7:27 EDT The results of this assay can be falsely lowered due to the consumption of Biotin. Rene Miller DO CHEMISTRY & BLOOD GA S ORDERABLES Performing Organization Address City/[facility]/ZIP Co de Phone Number [facility] [address] [place] [address] * TSH (09/25/2023 6:26 EDT) Only the most recent of2 resultswithin the time period is included. Pathologist [facility] TSH 2.25 0.47 - 4.68 mIU/L 09/25/2023 10:28 EDT [facility] Blood VENOUS BLOOD / Unknown Venipuncture / Unknown 09/25/2023 6:26 EDT 09/25/2023 6:54 EDT Narrative [facility] - 09/25/2023 10:28 EDT The results of this assay can be falsely lowered due to the consumption of Biotin. Vitaly Valencia DO CHEMISTRY & BLOOD GAS ORDERABLES Performing Organization Address [facility]/ZIP Co de Phone Number [facility] [address] [place], [place] [phone] * (ABNORMAL) HEMOGLOBIN A1C (09/25/2023 6:26 EDT) [facility] Hemoglobin A1c 5.7(H) <5.7 % 09/25/2023 11:37 [facility] Comment: Glycemic Status References: Normal: ??<5.7% Pre-Diabetes: ??5.7% - 6.4% Diagnostic of Diabetes: ??> or = 6.5% (if confirmed) Est Avg Glucose 117 mg/dL 11:37 EDT [facility] Comment:The eAG represents t he A1c result expressed as average glucose in mg/dL. Blood VENOUS BLOOD / Unknown Venipuncture / Unknown 09/25/2023 6:26 EDT 09/25/2023 6:54 EDT Vitaly Valencia DO CHEMISTRY & BLOOD GAS ORDERABLES Performing Organization Address [facility]/State/[facility] Co de Phone Number [facility] [address] [place], [place] [phone] * (ABNORMAL) LIPID PROFILE (INCLUDES CHOLESTEROL, TRIGLYCERIDES, HDL, LDL) (09/25/2023 6:26 EDT) [facility] Cholesterol 121 <200 mg/dL 09/25/2023 9:55 [facility] Comment:Note that therapeuti c goals will differ between patients based on cardiac risk factors and current medical therapy. HDL 34(L) >=40 mg/dl 09/25/2023 9:55 [facility] Comment:Note that therapeuti c goals will differ between patients based on cardiac risk factors and current medical therapy. LDL, Calculated 75 <160 mg/dL 9:55 [facility] Comment:Note that therapeuti c goals will differ between patients based on cardiac risk factors and current medical therapy. Triglyceride 58 <=150 mg/dL 09/25/2023 9:55 [facility] Comment:Note that therapeuti c goals will differ between patients based on cardiac risk factors and current medical therapy. Chol/HDL Ratio 3.6 See Note 09/25/2023 9:55 T [facility] Comment:No reference range h as been established for CHOL/HDL ratio. Non HDL Cholesterol 87 <160 mg/dL 09/25/2023 9:55 EDT [facility] Comment:Note that therapeuti c goals will differ between patients based on cardiac risk factors and current medical therapy. Blood VENOUS BLOOD / Unknown Venipuncture / Unknown 09/25/2023 6:26 EDT 09/25/2023 6:54 EDT Vitaly Valencia DO CHEMISTRY & BLOOD GAS ORDERABLES [facility] [address] [place] [address] * (ABNORMAL) BLOOD GASES, VENOUS (09/24/2023 22:45 EDT) pH, Venous 7.46(H) 7.31 - 7.41 09/24/2023 22:59 [facility] pCO2, Venous 27(L) 41 - 51 mmHg 09/24/2023 22:59 [facility] pO2, Venous 63(H) 30 - 50 mmHg 09/24/2023 22:59 [facility] tCO2, Venous 20(L) 22 - 28 mmol/L 09/24/2023 22:59 [facility] Temperature 35.8 C 09/24/2023 22:59 [facility] O2 Saturation, Venous 91(H) 60 - 85 % 09/24/2023 22:59 [facility] Oxygen Therapy (FIO2) 0.0 % 09/24/2023 22:59 [facility] Base Level -3.70(L) -2.00 - 3.00 mmol/L 09/24/2023 22:59 [facility] Blood VENOUS BLOOD / Unknown Venipuncture / Unknown 09/24/2023 22:45 EDT 09/24/2023 22:52 EDT Jessica Gallegos MD CHEMISTRY & BLOOD GA S ORDERABLES Performing Organization Address [facility]/ZIP Co de Phone Number [facility] [address] [place], [place] [phone] * (ABNORMAL) SODIUM (09/24/2023 21:02 EDT) Sodium 128(L) 136 - 145 mmol/L 09/24/2023 22:37 EDT [facility] Blood VENOUS BLOOD / Unknown Venipuncture / Unknown 09/24/2023 21:02 EDT 09/24/2023 21:06 EDT Jessica Gallegos MD CHEMISTRY & BLOOD GA S ORDERABLES Performing Organization Address [facility] Co de Phone Number [facility] [address] [place] [phone] * (ABNORMAL) PHOSPHORUS (09/24/2023 21:02 EDT) Phosphorus 7.8(H) 2.5 - 4.5 mg/dL 09/24/2023 22:37 EDT [facility] Blood VENOUS BLOOD / Unknown Venipuncture / Unknown 09/24/2023 21:02 EDT 09/24/2023 21:06 EDT Jessica Gallegos MD CHEMISTRY & BLOOD GA S ORDERABLES Performing Organization Address [facility] Co de Phone Number [facility] [address] [place] [phone] * (ABNORMAL) BUN (09/24/2023 19:14 EDT) BUN 135(H) 10 - 26 mg/dL 09/24/2023 19:45 EDT [facility] Comment: Slight hemolysis identified, interpret with caution as results may be affected due to hemolysis. Blood VENOUS BLOOD / Unknown Venipuncture / Unknown 09/24/2023 19:14 EDT 09/24/2023 19:16 EDT Latisha Ruvalcaba MD CHEMISTRY & BLOOD GA S ORDERABLES Performing Organization Address [facility]/ZIP Co de Phone Number [facility] [address] [place] [address] * (ABNORMAL) CREATININE (09/24/2023 19:14 EDT) Creatinine 12.37(H) 0.66 - 1.25 mg/dL 09/24/2023 19:31 EDT [facility] Comment:Elevated initial cre atinine or critical change in creatinine value. eGFR 4(L) >60 mL/min/1.7 3m2 09/24/2023 19:31 EDT [facility] Blood VENOUS BLOOD / Unknown Venipuncture / Unknown 09/24/2023 19:14 EDT 09/24/2023 19:16 EDT Latisha Ruvalcaba MD CHEMISTRY & BLOOD GA S ORDERABLES Performing Organization Address [facility] Co de Phone Number [facility] [address] [place] [address] * CT OUTSIDE IMAGES ABDOMEN PELVIS (09/24/2023 18:22 EDT) Narrative 09/24/2023 18:22 EDT This is a non-reportable exam. External Imaging IMG OTHER IMAGING OR DERABLES * (ABNORMAL) UA CHEMICAL & SEDIMENT + REFLEX TO CULTURE (09/24/2023 17:56 EDT) Color UA Yellow Colorless, Yellow 09/24/2023 18:11 EDT [facility] Clarity UA Clear Clear 09/24/2023 18:11 EDT [facility] Glucose UA Negative Negative mg/dL 09/24/2023 18:11 EDT [facility] Bilirubin UA Negative Negative 09/24/2023 18:11 EDT [facility] Ketones UA Trace(A) Negative 09/24/2023 18:11 [facility] Specific [place], Urine 1.008 1.001 - 1.030 09/24/2023 18:11 [facility] Blood UA 3+(A) Negative 09/24/2023 18:11 [facility] Urobilinogen UA 0.2 0.2-1.0 mg/dL mg/dL 09/24/2023 18:11 [facility] Nitrite UA Negative Negative 09/24/2023 18:11 [facility] Leukocyte Esterase UA Trace(A) Negative 09/24/2023 18:11 [facility] Protein UA Negative Negative mg/dL 09/24/2023 18:11 [facility] pH, UA 5.0 5.0 - 8.0 09/24/2023 18:11 [facility] Urine RBC Count, Auto 0 - 2 0 - 2 Cells/HPF 09/24/2023 18:11 [facility] Urine WBC Count, Auto 0 - 3 0 - 3 Cells/HPF 09/24/2023 18:11 [facility] Urine Squamous Count, Auto None Seen None Seen Cells/HPF 09/24/2023 18:11 [facility] Urine Hyaline Cast Count, Auto <=10 <=10 Casts/LPF 09/24/2023 18:11 [facility] Urine Bacteria Count, Auto None Seen None Seen Bacteria/HPF 09/24/2023 18:11 [facility] Urine URINE SPECIMEN OBTAINED BY CLEAN CATCH PROCEDURE / Unknown Urine Collect / Unknown 09/24/2023 17:56 EDT 09/24/2023 18:05 [facility] Narrative [facility] - 09/24/2023 18:11 EDT NOTE: Reflex to Urine Culture test is not indicated based on Urine Sediment Analysis results. Urine Sediment Analysis results are unreliable on urines that are unrefrigerated for >2 hrs or refrigerated >8 hrs. Juan Mcghee MD MPH URINALYSIS ORDERABL ES [facility] [address], [place] [phone] * LACTIC ACID WITH REFLEX - USE FOR INITIAL SEPSIS EVALUATION (09/24/2023 17:14 EDT) Pathologist [facility] Lactic Acid 1.6 <=2.0 mmol/L 09/24/2023 17:34 EDT [facility] Blood VENOUS BLOOD / Unknown Venipuncture / Unknown 09/24/2023 17:14 EDT 09/24/2023 17:19 EDT Juan Mcghee MD MPH CHEMISTRY & BLOOD G ORDERABLES Performing Organization Address City/[facility] Co de Phone Number [facility] [address] [place], [place] [phone] * (ABNORMAL) MAGNESIUM (09/24/2023 17:14 EDT) Pathologist [facility] Magnesium 3.2(H) 1.7 - 2.8 mg/dL 09/24/2023 18:17 EDT [facility] Comment:Slight hemolysis steve ntified, interpret with caution as results may be affected due to hemolysis. Blood VENOUS BLOOD / Unknown Venipuncture / Unknown 09/24/2023 17:14 EDT 09/24/2023 17:19 EDT Juan Mcghee MD MPH CHEMISTRY & BLOOD G ORDERABLES Performing Organization Address City/[facility]/ZIP Co de Phone Number [facility] [address] [place] [place], [place] [phone] * (ABNORMAL) COMPREHENSIVE METABOLIC PANEL (CMP) (09/24/2023 17:14 EDT) Pathologist [facility] Sodium 122(LL) 136 - 145 mmol/L 09/24/2023 18:46 EDT [facility] Potassium 5.4(H) 3.5 - 5.0 mmol/L 09/24/2023 18:46 EDT [facility] Chloride 85(L) 96 - 110 mmol/L 09/24/2023 18:46 [facility] CO2 Total 12(L) 22 - 32 mmol/L 09/24/2023 18:46 [facility] Glucose 92 70 - 99 mg/dl 09/24/2023 18:46 [facility] BUN >120(H) 10 - 26 mg/dL 09/24/2023 18:46 [facility] Comment: NOTE: Unable to report final result due to short sample volume. ??Interpret with caution. Creatinine 09/24/2023 18:46 [facility] Comment:Specimen quantity no t sufficient for analysis. eGFR 09/24/2023 18:46 [facility] Total Protein 7.6 6.3 - 8.2 g/dL 09/24/2023 18:46 [facility] Albumin 4.1 3.4 - 4.9 g/dL 09/24/2023 18:46 [facility] Alkaline Phosphatase 57 38 - 126 U/L 09/24/2023 18:46 [facility] AST 21 15 - 46 U/L 09/24/2023 18:46 [facility] ALT 14 <50 U/L 09/24/2023 18:46 [facility] Bilirubin, Total 0.7 <1.4 mg/dL 09/24/19 24 18:46 [facility] Calcium 8.6 8.5 - 10.5 mg/dL 09/24/2023 18:46 [facility] Albumin/Globulin Ratio 1.2 1.0 - 2.5 09/24/2023 18:46 [facility] Anion Gap 25(H) 5 - 14 mmol/L 09/24/2023 18:46 [facility] Blood VENOUS BLOOD / Unknown Venipuncture / Unknown 09/24/2023 17:14 EDT 09/24/2023 17:19 EDT Juan Mcghee MD MPH CHEMISTRY & BLOOD G ORDERABLES [facility] [address] [place] [address] * MANUAL HEMATOCRIT (09/24/2023 17:13 EDT) Blood VENOUS BLOOD / Unknown Venipuncture / Unknown 09/24/2023 17:13 EDT 09/24/2023 17:19 EDT Juan Mcghee MD MPH HEMATOLOGY & PF4 OR DERABLES [facility] [address] [place] [address] * (ABNORMAL) COMPLETE BLOOD COUNT AND DIFFERENTIAL (09/24/2023 17:13 EDT) WBC 7.76 4.00 - 10.40 K/cmm 09/24/2023 18:20 [facility] RBC 4.23(L) 4.36 - 5.78 M/cmm 09/24/2023 18:20 [facility] Hemoglobin 09/24/2023 18:20 [facility] Comment:Hemoglobin not avail able due to optical interference in patient specimen attributable to hemolysis. HCT 35.6(L) 39.5 - 50.2 % 09/24/2023 18:20 [facility] Comment: Slight hemolysis present MCV 84 81 - 95 fL 09/24/2023 18:20 [facility] Comment: MCH 09/24/2023 18:20 [facility] Comment:Could not be calcula cristina due to unreportable hemoglobin. Hypochromia 09/24/2023 18:20 T [facility] MCHC 09/24/2023 18:20 [facility] Comment:Could not be calcula cristina due to unreportable hemoglobin. RDW-CV 11.7 <14.2 % 09/24/2023 18:20 [facility] RDW-SD 35.4 <46.0 fl 09/24/2023 18:20 [facility] Anisocytosis 09/24/2023 18:20 [facility] PLT 318 141 - 377 K/cmm 09/24/2023 18:20 [facility] MPV 9.6 9.5 - 12.7 fL 09/24/2023 18:20 [facility] % Neutrophils 81.9 % 09/24/2023 18:20 [facility] % Lymphocytes 11.1 % 09/24/2023 18:20 [facility] % Monocytes 6.2 % 09/24/2023 18:20 [facility] % Eosinophils 0.1 % 09/24/2023 18:20 [facility] % Basophils 0.3 % 09/24/2023 18:20 [facility] % Immature Grans 0.4 % 09/24/19 18:20 [facility] Absolute Neutrophils 6.36 2.20 - 8.85 K/cmm 09/24/2023 18:20 [facility] Absolute Lymphocytes 0.86(L) 1.09 - 3.30 K/cmm 09/24/2023 18:20 [facility] Absolute Monocytes 0.48 0.10 - 0.80 K/cmm 09/24/2023 18:20 [facility] Absolute Eosinophils 0.01(L) 0.03 - 0.61 K/cmm 09/24/2023 18:20 [facility] ABS Basophils 0.02 0.01 - 0.11 K/cmm 09/24/2023 18:20 [facility] Absolute Immature Grans 0.03 0.00 - 0.06 K/cmm 09/24/2023 18:20 [facility] Type of Differential: Auto 09/24/2023 18:20 [facility] Blood VENOUS BLOOD / Unknown Venipuncture / Unknown 09/24/2023 17:13 EDT 09/24/2023 17:19 EDT Juan Mcghee MD MPH PACKAGES & DNA PROB E ORDERABLES [facility] [address] [place] [id number] * EKG 12-LEAD (09/24/2023 17:06 EDT) 09/24/2023 17:0 6 EDT Narrative [facility] - 09/25/2023 9:43 EDT ?[facility] ? Test Date: ?2023-09-24 Pat Name: ? LISANDRA HOLLIS ? Department: ?? ED ? Room: ? AC08 Gender: ? Male ? Site Foreman: ?? [id number] : ?1945 ? Requested By: ROSMERY Mendez Order Number: [id number] ? Reading MD: ?? CHEVY BOLTON MD ? Measurements Intervals ?Babb ? Rate: ? 97 ? P: ?0 GA: ? 0 ?QRS: ?27 QRSD: ? 89 ? T: ?52 QT: ? 324 ? QTc: ?412 ? Interpretive Statements ATRIAL FIBRILLATION ABNORMAL EKG I reviewed the tracing and have either agreed or edited the findings in this report. Electronically Signed On 09-25-2023 09:43:32 EDT by CHEVY BOLTON MD. Procedure Note Chevy Bolton MD - 09/25/2023 [facility] Test Date: 2023-09-24 Pat Name: LISANDRA HOLLIS Department: ED Room: [facility] Gender: Male Site Foreman: [id number] : 1945 Requested By: ROSMERY Mendez Order Number: [id number] Reading MD: CHEVY BOLTON MD Measurements Intervals Babb Rate: 97 P: 0 GA: 0 QRS: 27 QRSD: 89 T: 52 QT: 324 QTc: 412 Interpretive Statements ATRIAL FIBRILLATION ABNORMAL EKG I reviewed the tracing and have either agreed or edited the findings inthis report. Electronically Signed On 09-25-2023 09:43:32 EDT by SUSAN PENA. Latisha Ruvalcaba MD CARDIAC ECG ORDERABL ES [facility] * EKG 12-LEAD (09/24/2023 16:53 EDT) 09/24/2023 16:5 3 EDT Narrative [facility] - 09/25/2023 9:51 EDT ?[facility] ? Test Date: ?2023-09-24 Pat Name: ? LISANDRA HOLLIS ? Department: ?? ED ? Room: ? AC08 Gender: ? Male ? Site Foreman: ?? [id number] : ?1945 ? Requested By: MODESTO MAZA Order Number: [id number] ? Reading MD: ?? CHEVY BOLTON MD ? Measurements Intervals ?Babb ? Rate: ? 51 ? P: ?-39 GA: ? 195 ?QRS: ?17 QRSD: ? 98 [...] Note Chevy Bolton MD - 09/25/2023 [facility] Test Date: 2023-09-24 Pat Name: LISANDRA HOLLIS Department: ED Room: [facility] Gender: Male Site Foreman: [id number] : 1945 Requested By: MODESTO MAZA Order Number: [id number] Natty MD: CHEVY BOLTON MD Measurements Intervals Babb Rate: 51 P: -39 GA: 195 QRS: 17 QRSD: 98 T: 33 QT: 461 QTc: 425 Interpretive Statements SINUS BRADYCARDIA NONSPECIFIC ST & T-WAVE ABNORMALITY POOR R WAVE PROGRESSION LOW VOLTAGE, PRECORDIAL LEADS ABNORMAL EKG I reviewed the tracing and have either agreed or edited the findings inthis report. Electronically Signed On 09-25-2023 09:51:54 EDT by SUSAN PENA. Juan Mcghee MD MPH CARDIAC ECG ORDERAB LES [facility] EKG from Last 3 Months Advance Directives For more information, please contact: [phone] * Full Code (Latest Code Status on [...] Made the Decision? Default/Not Discussed Care Teams Television Audio Engineer Relationship Specialty Start Date End Date Sasha Garg MD [address] [place], [place] [phone] PCP - General Internal Medicine - Primary Care 10/02/23 Jigna Chapman MD 1 [facility] 1 [place] [phone] PCP - Alternate Internal Medicine - Primary Care 10/02/23
--- OUTSIDE RECORDS SUMMARY | 2023-10-07 16:18 | XMS_ITS | Encounter Summary ---
Author Organization [facility] Address [address] [place] [address] Care Team Providers Care Extractor Filler Name Role Phone Sasha Garg MD Primary Care Provider Jigna Chapman MD Unavailable [phone] Reason for Referral * Cardiology (Routine/Next Available) - Authorization Not Required Specialty Diagnoses / Procedures [facility]erred To Contact Diagnoses Typical atrial flutter (HCC-CMS) Procedures EXTENDED HOLTER MONITOR (7 OR 14 DAY) NE EXTERNAL ECG REC>7D<15D REVIEW & INTERPRETATION Lalo Ramires MD [address] [place] [phone] [facility] Referral ID Status Reason Start Date Expiration Date Visits Requested Visits Authorized [id number] Authorization Not Required 09/30/2023 1 1 Reason for Visit * Cardiology (Routine/Next Available) - Authorization Not Required Specialty Diagnoses / Procedures [facility] Referred To Contact Diagnoses Typical atrial flutter (HCC-CMS) Procedures EXTENDED HOLTER MONITOR (7 OR 14 DAY) NE EXTERNAL ECG REC>7D<15D REVIEW & INTERPRETATION Lalo Ramires MD [address] [place] [phone] [facility] Referral ID Status Reason Start Date Expiration Date Visits Requested Visits Authorized [id number] Authorization Not Required 09/30/2023 1 1 Encounter Details Date Type Department Care Team (Latest Contact Info) Description 10/02/2023 9:18 EDT - 10/02/2023 23:59 EDT Hospital Encounter [facility] [place] [address] Typical atrial flutter (HCC-CMS) Discharge Disposition: Home or Self Care Social History Tobacco Use Types Packs/Day Years [...] in the past 12 m [facility], were you homeless or living in a alf (including now)? No 09/28/2023 Interpersonal Safety Answer Date Record ed How often does anyone, incleduard jackie family, hit, punch or physically hurt you? 09/26/2023 How often does anyone, amy jackie family, insult, scream, curse or threaten [...] No 09/25/2023 documented as of this encounter Medications at Time of Discharge Medication Sig Dispensed Refills Start Date End Date acetaminophen (TYLENOL) 325 mg tablet Take 2 Tablets by mouth every 6 hours as needed for Pain or Fever. 09/30/2023 dilTIAZem (CARDIZEM) 30 mg tablet Take 1 Tablet by mouth 2 times daily. 60 Tablet 09/30/2023 finasteride (PROSCAR) 5 mg tablet Take 1 Tablet by mouth daily. 30 Tablet 10/01/2023 10/04/2023 TAMSulosin (FLOMAX) 0.4 mg capsule Take 1 Capsule by mouth at bedtime for 30 days. 30 Capsule 09/30/2023 10/04/2023 documented as of this encounter Discharge Disposition Disposition Code Departure Means Destination Home or Self Care documented in this encounter Plan of Treatment Upcoming Encounters Date Type Department Care Team (Late st Contact Info) Description 10/09/2023 11:20 EDT Post-op Visit [address] [phone] Ricardo Wright MD [address], [address] [place] [phone] 10/09/2023 11:30 EDT Nurse Only [address] [phone] Nurse, Ep5 Urology 10/11/2023 14:00 EDT Office Visit [facility] Adult Primary Care - [place] [address] [place] [address] Sasha Garg MD [address] [place] [phone] 10/31/2023 11:30 EDT [facility] - [address] [address] Pending Results Name Type Priority Associated Diagnoses Date /Time EXTENDED HOLTER MONITOR (7 OR 14 DAY) Cardiac Services Routine Typical atrial flutter (HCC-CMS) 10/02/2023 9:19 EDT Scheduled Orders Name Type Priority Associated Diagnoses Orde r Schedule EXTENDED HOLTER MONITOR (7 OR 14 DAY) Cardiac Services Routine Typical atrial flutter (HCC-CMS) 1 Occurrences starting 10/02/2023 until 10/02/2023 documented as of this encounter Visit Diagnoses Diagnosis Typical atrial flutter (HCC-CMS) Atrial flutter documented in this encounter Care Teams Extractor Filler Relationship Specialty Start Date End Date Sasha Garg MD [address] [place] [phone] PCP - General Internal Medicine - Primary Care 10/02/23 Jigna Chapman MD 1 [facility] 1 [place] [phone] PCP - Alternate Internal Medicine - Primary Care 10/02/23 documented as of this encounter
--- OUTSIDE RECORDS SUMMARY | 2023-10-07 16:19 | XMS_ITS | Encounter Summary ---
Author Organization [facility] Address [address] [place] [address] Care Team Providers Care Tumbling And Rolling Supervisor Name Role Phone None, Provider Primary Care Provider Unavailabl e Encounter Details Date Type Department Care Team (Latest Contact Info) Description 09/24/2023 18:14 EDT - 09/24/2023 23:59 EDT Hospital Encounter [facility] Secondary [place] Discharge Disposition: Home or Self Care Social History Tobacco Use Types Packs/Day Years Used Date Smoking Tobacco: Never Assessed Sex and Gender Information Value Date Recorded Sex Assigned at Male 10/05/2023 21:45 EDT Gender Identity Male 09/24/2023 16:53 EDT Sexual Orientation Straight 10/05/2023 21 :45 EDT documented as of this encounter Medications at [...] Info) Description 10/09/2023 11:20 EDT Post-op Visit [facility] Urology - [address] [phone] Ricardo Wright MD [address], [facility], [address] [place] [phone] 10/09/2023 11:30 EDT Nurse Only [facility] Urology - [address] [phone] Nurse, Ep5 Urology 10/11/2023 14:00 EDT Office Visit [facility] Adult Primary Care - [address] [phone] Sasha Garg MD [address] [place] [phone] 10/31/2023 11:30 EDT Appointment [facility] Radiology CT - [address] [phone] documented as of this encounter Procedures Procedure Name Priority Date/Time Associated Diagnosis Comments CT OUTSIDE IMAGES ABDOMEN PELVIS STAT 09/24/2023 18:22 EDT documented in this encounter Results * CT OUTSIDE IMAGES ABDOMEN PELVIS (09/24/2023 18:22 EDT) Narrative 09/24/2023 18:22 EDT This is a non-reportable exam. External Imaging IMG OTHER IMAGING OR DERABLES documented in this encounter Visit Diagnoses Not on filedocumented in this encounter Care Teams Tumbling And Rolling Supervisor Relationship Specialty Start Date End Date None, Provider PCP - General 09/24/23 10/01/23 documented as of this encounter
--- OUTSIDE RECORDS SUMMARY | 2023-10-07 16:19 | XMS_ITS | Encounter Summary ---
Author Organization [facility] Address [address] [place] [address] Care Team Providers Care C D Stripper Name Role Phone None, Provider Primary Care Provider Unavailabl e Encounter Details Date Type Department Care Team (Late st Contact Info) Description 09/26/2023 Orders Only [facility] Radiology - [facility] [address] [place], [place] [phone] Chris Montgomery MD [address] [place] [phone] Social History Tobacco Use Types Packs/Day Years [...] any time in the past 12 m [facility], were you homeless or living in a fci (including now)? No 09/28/2023 Interpersonal Safety Answer [...] No 09/25/2023 documented as of this encounter Plan of Treatment Upcoming Encounters Date Type Department Care Team (Late st Contact Info) Description 10/09/2023 11:20 EDT Post-op Visit [address] [phone] Ricardo Wright MD [address], [address] [place] [phone] 10/09/2023 11:30 EDT Nurse Only [address] [phone] Nurse, Ep5 Urology 10/11/2023 14:00 EDT Office Visit [facility] Adult Primary Care - [place] [address] [place], [place] [phone] Sasha Garg MD [address] [place] [phone] 10/31/2023 11:30 EDT [facility]ment [facility] - [address] [address] documented as of this encounter Visit Diagnoses Not on filedocumented in this encounter Care Teams C D Stripper Relationship Specialty Start Date End Date None, Provider PCP - General 09/24/23 10/01/23 documented as of this encounter
--- OUTSIDE RECORDS SUMMARY | 2023-10-07 16:19 | XMS_ITS | Encounter Summary ---
Author Organization [facility] Address [address] [place] [address] Care Team Providers Care Electrical Timing Device Calibrator Name Role Phone None, Provider Primary Care Provider Unavailabl e Reason for Referral * Referral (Routine/Next Available) - New Request Specialty Diagnoses / Procedures Referred By [facility] t Referred To Contact Diagnoses Acute bilateral obstructive uropathy Acute renal failure, unspecified acute renal failure type ([facility]) Lalo Ramires MD [address] [place] [phone] [facility] [address] [address] Referral ID Status Reason Start Date Expiration Date Visits Requested Visits Authorized [id number] New Request Specialty Services Required 09/30/2023 1 1 Question Answer I certify that this patient is under my care and that I, or another Medicare allowed practitioner (DO JEAN, KATHE) working with me, had a [id number] encounter with this patient on this date: 09/30/2023 The discharge summary or progress note will provide further details that support the need for the home health services and the plan of care. Yes Enter the allowed practitioner (DO JEAN, KATHE) who will provide oversight of this patient's home heatlh care needs and plan of care Makayla Garcia MD Some payers require a patient to be homebound to qualify for home health services. Homebound definition: Absences from home are infrequent or for relatively short duration (such as for medical appointments). Is patient HOMEBOUND? No This referral may be ineligible for admission to home health services as some payers/insurances require a patient to be homebound in order to qualify for home health services. I would like to continue with placing the order: Yes Skilled care requested: Nursing (includes assessment, treatment, disease management/education, wound care) Nursing skilled care requested: Disease management, Nursing treatment Skilling Nursing Referral - Treatment: Lopez Care Lopez catheter care: Irrigate with 30-60cc NS PRN Lopez changes: Lopez catheter changes per Urology Longterm Referral - Disease Mgmt and Education about: Medication Mgmt * Consult (Routine/Next Available) - Receiving Office to Obtain Authorization Specialty Diagnoses / Procedures Referred By Contac t Referred To Contact Cardiology Diagnoses Typical atrial flutter (HCC-CMS) Lalo Ramires MD [address] [place] [phone] [facility] Cardiology [address] [facility] [place] [address] Referral ID Status Reason Start Date Expiration Date Visits Requested Visits Authorized [id number] Receiving Office to Obtain Authorization Specialty Services Required 4 1 1 Question Answer Reason for Request: new a flutter * Cardiology (Routine/Next Available) - Authorization Not Required Specialty Diagnoses / Procedures Referred By Contac t Referred To Contact Diagnoses Typical atrial flutter (HCC-CMS) Procedures EXTENDED HOLTER MONITOR (7 OR 14 DAY) [place] EXTERNAL ECG REC>7D<15D REVIEW & INTERPRETATION Lalo Ramires MD [address] [place] [phone] [facility] Referral ID Status Reason Start Date Expiration Date Visits Requested Visits Authorized [id number] Authorization Not Required 09/30/2023 1 1 * Follow Up (Routine/Next Available) - Receiving Office to Obtain Authorization Specialty Diagnoses / Procedures Referred By Natalie alex Referred To Contact Diagnoses Acute bilateral obstructive uropathy Acute renal failure, unspecified acute renal failure type (HCC-CMS) Hyponatremia Urinary retention Typical atrial flutter (HCC-CMS) MANUELITO (acute kidney injury) ([facility]) Lalo Ramires MD [address] [place] [phone] Makayla Garcia MD [address] [place] [address] Referral ID Status Reason Start Date Expiration Date Visits Requested Visits Authorized [id number] Receiving Office to Obtain Authorization Continuity of Care 4 1 1 Question Answer Reason for Request: f/u hospitalization * Consult (Urgent) - Receiving Office to Obtain Authorization Specialty Diagnoses / Procedures Referred By Natalie alex Referred To Contact Urology Diagnoses Acute bilateral obstructive uropathy Acute renal failure, unspecified acute renal failure type ([facility]) Urinary retention Lalo Ramires MD [address] [place] [phone] [place] [address] [address] [place] [address] Referral ID Status Reason Start Date Expiration Date Visits Requested Visits Authorized [id number] Receiving Office to Obtain Authorization Specialty Services Required 4 1 1 Question Answer Reason for Request: Lopez in due to pt refusing lopez removal. Acute renal failure due to acute bilateral obstructive uropathy * Radiology Services (Routine/Next Available) - Authorization Not Required Specialty Diagnoses / Procedures Referred By Contac t Referred To Contact Diagnoses Acute bilateral obstructive uropathy Urinary retention Procedures CT ABDOMEN PELVIS W CONTRAST Yara Marie PA-C [address] [place], [place] [phone] [facility] Referral ID Status Reason Start Date Expiration Date Visits Requested Visits Authorized [id number] Authorization Not Required 09/25/2023 1 1 * Consult (Urgent) - Receiving Office to Obtain Authorization Specialty Diagnoses / Procedures Referred By Natalie alex Referred To Contact Urology Diagnoses Acute renal failure, unspecified acute renal failure type ([facility]) Urinary retention Yara Marie PA-C [address] [place] [phone] Ricardo Wright MD [address] [phone] Referral ID Status Reason Start Date Expiration Date Visits Requested Visits Authorized [id number] Receiving Office to Obtain Authorization Specialty Services Required 4 1 1 Question Answer Reason for Request: Follow up in 1 week w/ Dr. Horvath w/ TOV Reason for Visit * Reason Comments Acute Renal Failure Pt BIBEMS as transfe r from [facility] after 10 days of groin and abdominal pain, greater L side than R side. Pt practices hollistic care and has not seen MD for this prior to now. Dilated bladder, urinary retention for 5 days. Pt has possible left kidney rupture vs uretal mass on CT at OSH. Pt A+Ox3, occassionally confused. Na 116 and K 6.9. Given hyperkalemia tx at [facility]. Lopez placed, 3.5 L dark bloody urine out initially. Over 5 L UOP since lopez placed. Has hiccups, no other complaint sat this time. * Auth/Cert (Routine) Specialty Diagnoses / Procedures Referred By Natalie t Referred To Contact Diagnoses Hyponatremia Acute renal failure ([facility]) Acute bilateral obstructive uropathy NSTEMI (non-ST elevated myocardial infarction) ([facility]) MANUELITO (acute kidney injury) ([facility]) Acute renal failure, unspecified acute renal failure type ([facility]) New renal failure Referral ID Status Reason Start Date Expiration Date Visits Re quested Visits Authorized [id number] 1 1 Encounter Details Date Type Department Care Team (Late st Contact Info) Description 09/24/2023 16:13 EDT - 09/30/2023 15:27 EDT Hospital Encounter [place] [address] General Medicine Telemetry Unit [address] [place] [address] Latisha Ruvalcaba MD [address] [place] [address], [facility] [address] [place] [phone] Jessica Gallegos MD [address] [place] [phone] Bruna Glover MD MPH [address] [place] [phone] Donna Valencia DO [address] [place] [phone] Selvin Ramirez MD [address] [place] [address], [facility] [address] [place] [phone] Taqueria Abdi DO [address] [phone] Laol Ramires MD [address] [phone] Acute bilateral obstructive uropathy (Primary Dx); Acute renal failure, unspecified acute renal failure type (HCC-CMS); Hyponatremia; NSTEMI (non-ST elevated myocardial infarction) ([facility]); Urinary retention; Typical atrial flutter ([facility]); MANUELITO (acute kidney injury) ([facility]) Discharge Disposition: Home-Health Care [facility] Social History Tobacco Use Types Packs/Day Years [...] any time in the past 12 [facility], were you homeless or living in a senior living (including now)? No 09/28/2023 Interpersonal Safety Answer [...] :45 EDT documented as of this encounter Last Filed Vital Signs Vital Sign Reading [...] Body Mass Index 26.36 09/25/2023 0800 EDT documented in this encounter Functional Status Functional Status Response [...] No 09/25/2023 documented as of this encounter Discharge Summaries * Makayla Garcia MD - 09/30/2023 1301 EDT Images from the original note were not included. HOSPITAL MEDICINE DISCHARGE SUMMARY Primary Care Provider: Provider None Attending Physician: No att. providers found Admit Date: 09/24/23 Discharge Date: 09/30/2023 Disposition (location): Home Condition at Discharge: Improved Reason for Admission (chief complaint): Acute renal failure in the setting of acute bilateral obstructive uropathy Principal/Final Diagnosis: Acute bilateral obstructive uropathy Additional Problems Managed in the Hospital: Active Hospital Problems Diagnosis Date Noted *Acute bilateral obstructive uropathy 09/25/2023 Typical atrial flutter (HCC-CMS) 09/29/2023 Urinary retention 09/25/2023 Resolved Hospital Problems Diagnosis Date Noted Date Resolved Acute renal failure, unspecified acute renal failure type ([facility]) 09/25/2023 09/29/2023 Hyponatremia 09/25/2023 09/29/2023 NSTEMI (non-ST elevated myocardial infarction) ([facility]) 09/25/2023 09/29/2023 Acute renal failure ([facility]) 09/24/2023 09/29/2023 MANUELITO (acute kidney injury) ([facility]) 09/24/2023 09/29/2023 Clinical Issues Needing Follow-up 1. Pertinent medication changes: - Finasteride 5 mg daily - Tamsulosin 0.4 mg at bedtime - Diltiazem 30 mg BID 2. Recommended follow-up tests/procedures needed: - Resident clinic in [place] with Dr. Makayla Garcia -Urgent urology clinic referral for Lopez removal -Extended Holter Monitor and Ambulatory follow [...] at time of discharge (if applicable): N/A Hospital Course: Lisandra Hollis is a 78 YO male patient with limited past medical contact who initially presented to [facility] with abdominal, groin, and back pain. Labs at outside hospital were notable for Na 116, VBG pH 7.19, Cr 19.9, and K 6.9. CT abdomen showed a m arkedly distended bladder with possible calyceal rupture versus ureteral obstruction of the left kidney. He received NS, D5W, bicarb, and furosemide. Lopez was placed with return of 3 L dark, bloody UOP. The patient was transferred to [facility] for management of his electrolyte derangement. At [facility], admission labs showed Na 122, K 5.4, and Cr 12.34. He was given DDAVP (1 mcg x 2) and continued on D5W. He was found to be in atrial flutter and was monitored on telemetry, self-resolved non-pharmacologically. TTE showed EF 55- 60%. His sodium levels were found to be overcorrected to 131 less than 24 hours after his initial admission, and he was transferred to MICU for close electrolyte monitoring. While in the MICU, patient was given additional DDAVP (2 mcg x 2) and monitored closely, with Na improving to 125, with goal correction of 6-8 mEq / 24 hours. Patient was admitted to Medicine given clinical stability for continued management of electrolyte abnormalities and atrial flutter/soft BPs.Recurrent atrial flutter was monitored on tele, with suggestion to start amiodarone however patientrefused. Did consent to starting some diltiazem while inpatient. Patient showed symptomatic and clinical improvement in his primary reasons for admission (i.e., post-obstructive MANUELITO, electrolyte abnormalities). We recommended a continued stay for management and work-up of his atrial flutter with intermittent RVR, specifically with a plan for initiation of diltiazem, heparin (with plan to bridge to apixaban), and potential cardiology EP consult for further evaluation. However, given patient insistence on return home today, he denied initiating anticoagulation, trial of void with potential Lopez removal, and continued inpatient stay for further workup. Patient expressed understanding and appreciation of the risks associated with discharge at this time. More specifically, in terms of his atrial flutter w RVR, we discussed the risks of, which include, but are not limited to, heart failure, myocardial ischemia, stroke, and systemic embolism. He alsoappreciates and understands the risks of prolonged Lopez placement, which includes risk of UTI. He was subsequently discharged home with plan to return to [facility] in 3-5 days for Lopez removal in urology clinic (referral placed), return to resident clinic for PCP appointment for management of BPH, follow up Holter monitoring with EP Cards consult/atrial flutter and follow up/reschedule outpatient urology appointment for cystoscopy, CT renal mass protocol, and follow up of MANUELITO/BPH. Relevant Imaging/Procedures Performed: EKG 09/27 Transthoracic echo (TTE) complete w/Doppler W/CF no contrast, 09/25/2023 0815: Pericardium: Image quality is suboptima. There did not appear to be any significant pericardial effusion. There was a left pleural effusion visualized. Left Ventricle: The left ventricular cavity was normal in size. Left ventricular systolic function was normal with an ejection fraction of 55-60% by visual estimate. The study is not technically sufficient to allow evaluation of left ventricular diastolic function. Although no diagnostic regional wall motion abnormality was identified, this possibility cannot be completely excluded on the basis of this study. Right Ventricle: The right ventricular cavity was normal in size. Right ventricular systolic function was normal. CT AP WITHOUT CONTRAST (Outside Hospital) Date: 09/24/2023 Impressions: Markedly distended urinary bladder. No stones or masses identified. The prostate gland is mildly enlarged. Dilatation of the renal collecting systems bilaterally, predominantly involving the renal pelves. There is infiltration in fluid seen surrounding the left kidney. This may represent calyceal/forniceal rupture. No radiopaque stone is identified. A radiolucent stone or proximal ureteral mass should be considered. Dilatation of the collecting systems may also be a sequelae of the distended urinary bladder. Moderate left pleural effusion and left basilar infiltrate which may represent atelectasis or pneumonia. Colonic diverticuloses without evidence of acute diverticulitis. A postcontrast CT scan or MRI of the abdomen and pelvis is recommended. Indeterminate 2 cm hypodensity in the superior pole of the left kidney. Results Pending at Discharge: Test results still pending from this admission None Upcoming Appointments Nov 13, 2023 10:00 Procedure Short with Ep5 Urology Nurse [facility] (--) [address] [facility] [address] Nov 13, 2023 10:20 Post Op Visit with Ricardo Winchester MD [facility] (--) [address] [facility] [address] Follow-up appointments and procedures Amb Consult/Follow Up Urology Reason for Request: Follow up in 1 week w/ Dr. Horvath w/ [facility] Authorizing Provider: Yara Marie PA-C Amb Consult/Follow Up Urology Reason for Request: Lopez in due to pt refusing lopez removal. Acute renal failure due to acute bilateral obstructive uropathy Authorizing Provider: Lalo Ramires MD Amb Consult/Follow Up Cardiac Electrophysiology Reason for Request: new a flutter Authorizing Provider: Lalo Ramires MD Amb Consult/Follow Up Primary Care Physician - [facility] Reason for Request: f/u hospitalization Authorizing Provider: Lalo Ramires MD [facility] [place] [facility]) I certify that this patient is under my care and that I, or another Medicare allowed practitioner (DO JEAN, KATHE) working with me, had a [id number]-[id number]-zvsb encounter with this patient on this date: 09/30/2023 The discharge summary or progress note will provide further details that support the need for the home health services and the plan of care.: Yes Enter the allowed practitioner (DO JEAN, KATHE) who will provide oversight of this patient's home heatlh care needs and plan of care: Makayla Garcia MD Some payers require a patient to be homebound to qualify for home health services. Homebound definition: Absences from home are infrequent or for relatively short duration (such as for medical appointments). Is patient HOMEBOUND?: No This referral may be ineligible for admission to home health services as some payers/insurances require a patient to be homebound in order to qualify for home health services. I would like to continue with placing the order: Yes Skilled care requested: Nursing (includes assessment, treatment, disease management/education, wound care) Nursing skilled care requested: Disease management Nursing treatment Skilling Nursing Referral - Treatment: Lopez Care Lopez catheter care: Irrigate with 30-60cc NS PRN Lopez changes: Lopez catheter changes per Urology Longterm Referral - Disease Mgmt and Education about: Medication Mgmt Authorizing Provider: Lalo Ramires MD Follow-up labs and tests Extended Holter Monitor (7 or 14 day) Complete by: Sep 30, 2023 (Approximate) Authorizing Provider: Lalo Ramires MD Basic Metabolic Panel (BMP) Complete by: Oct 02, 2023 (Approximate) Scheduling Instructions: Blood Test and Fasting How long do I have to fast for before a blood test? - If a fasting blood test is ordered, you should not have anything to eat or drink (except water) for at least eight hours. This usually involves an overnight fast. - You should continue to take any prescription medications, unless your physician directed you not to take them. - Smoking and exercise may affect your results as well, so you should refrain from these activitiesas much as possible during this time. If you have any concerns about refraining from food for this period of time, talk to your physician. Authorizing Provider: Lalo Ramires MD CT ABDOMEN PELVIS W CONTRAST Complete by: Oct 26, 2023 (Approximate) Process Instructions: Creatinine drawn within 90 days is required for IV contrast for the followingrisk factors: High blood pressure, Age over 60, Diabetes and/or Renal Disease IV HYDRATION IS REQUIRED FOR PATIENTS WITH GFR (GLOMERULAR FILTRATION RATE) =< 30 RECEIVING IV CONTRAST. ORAL HYDRATION IS RECOMMENDED FOR PATIENTS WITH A GFR BETWEEN 31-59 RECEIVING IV CONTRAST. Preceding guidance is at the discretion of the ordering provider based on acuity and clinical indications (ie. Trauma, stroke, CHF, etc) Authorizing Provider: Yara Marie PA-C AMI MERKER, MD 09/30/2023 15:33 Associated attestation - Lalo Ramires MD - 09/30/2023 1600 EDT Attending Attestation I interviewed and examined the patient; reviewed interval labs, events, and notes. I discussed the case with the medicine house staff team and agree with and edited the findings and plan of care as documented in resident discharge summary above. I personally spent 45 minutes counseling and preparing the patient for discharge and coordinating outpatient follow-up. Complicated discharge with high potential for readmission. Discussed at length with patient/family risks of discharge without established rate control, clear anticoagulation plan, leaving lopez in place without short interval urology or PCP follow up established. He and family endorsed understanding and willingness to accept risk. We will work to arrange follow up as able, provide home health services and set up outpatient cardiac monitoring. Lalo Ramires MD Internal Medicine Hospitalist 09/30/2023 15:54 documented in this encounter Discharge Instructions * Discharge Instr - AVS First Page* Makayla Garcia MD - 09/30/2023 13:14 EDT Follow up: Please see your recommended follow-up below. Urology Primary Care - we placed a referral to [facility] Resident [facility] Labs / Imaging: You have upcoming lab work to check your sodium levels and kidney function on 10/02/2023 . You can speak to your primary care physician about these results. We recommend that you return in the next week to either [facility] ([address] [place] [address]) or back to [facility] for laboratory follow up. Major Medication Changes: Please review the complete list of your medications below. Some of the most important new medication changes you will have going forward include: START taking: - Finasteride 5 mg daily - Tamsulosin 0.4 mg at bedtime - Diltiazem 30 mg twice a day for your atrial flutter (heart) - You can purchase Tylenol at a drug store for pain control We recommend that you see a active directory administrator. You insisted that you would find a active directory administrator [place]. We recommended that we refer you to a PCP. You preferred seeing your 's PCP. Please follow up with a PCP within the week to get your lopez removed. It is an infection risk to keep the lopez in. Please speak to your primary care physician about any questions you have regarding your medications. Thank you for choosing [facility] for your care! documented in this encounter Medications at Time of Discharge [...] 09/30/2023 10/04/2023 documented as of this encounter Ordered Prescriptions Prescription Sig Dispensed Refills Start Date End Da te dilTIAZem (CARDIZEM) 30 mg tablet Take 1 Tablet by mouth 2 times daily. 60 Tablet 09/30/2023 acetaminophen (TYLENOL) 325 mg tablet Take 2 Tablets by mouth every 6 hours as needed for Pain or Fever. 09/30/2023 finasteride (PROSCAR) 5 mg tablet Take 1 Tablet by mouth daily. 30 Tablet 10/01/2023 10/04/2023 TAMSulosin (FLOMAX) 0.4 mg capsule Take 1 Capsule by mouth at bedtime for 30 days. 30 Capsule 09/30/2023 10/04/2023 documented in this encounter Discharge Disposition Disposition Code Departure Means Destination Comment s Home-Health Care [facility] Home documented in this encounter Progress Notes * Hilaria Tavares - 09/30/2023 1522 EDT CM Discharge Note CASE MANAGEMENT DISCHARGE NOTE DISCHARGE DATE/TIME: 09/30/23 3:30 PM DESTINATION: home (If discharging to [facility]) COVID swab ordered and completed: N/A TRANSPORTATION: Son ACCEPTING MD AND NUMBER: N/A RN REPORT/UNIT: [facility] PMO ANALYST/CHARGE/MD NOTIFIED (Y/N): yes FORMS: (Acute to acute, COLST, MOLST, SPENCER, Screen, PASRR, Ambulance): Discharge paperwork IM SIGNED (Y/NA): yes HOME HEALTH: [facility] DME: none PHARMACY/PRESCRIPTIONS: ACC MEDS TO BEDS UTILIZED : YES/NO yes Patient and/or family who participated in discharge plan: Patient, son, [id number] Destination Confirmation: Patient has decision making capacity. DEEPIKA Rowland M. Ed. [employer] Social Work and Case Management * Yesy Miramontes, PT - 09/30/2023 1501 EDT [facility] Rehabilitation Therapy Acute Therapies [facility] Physical Therapy Discontinue/Discharge Note Date of Service: 09/30/2023 Precautions: Activity as tolerated and Up ad christiana, HR: <140 sustained with activity SUBJECTIVE: I am trained in yajaira chi, I start my day with a leisure walk to the barn and meditation OBJECTIVE: Intervention Completed Today: Time: 6415-7794 Total treatment time: 25 minutes. Timed code treatment minutes: na Patient sitting in recliner chair visiting with family at start of session Vital Signs: HR while resting in chair talking 95 to 138 and 135 -138 at end of session- RN informed and medicalstudent after session of vitals with activity BP 124/85 Oxygen saturation 98-99% on room air With activity walking in hallway- max HR 145 Patient not symptomatic Bed mobility: independent Sit <-> stand: independent Patient ambulated 250 feet with no assistive device. Patient with step thru gait pattern, able to walk and talk, change speed with no loss of balance throughout session. Discussed safety measures that he could take when home: Slow transitions Proper lighting at night Proper shoewear Patient left in recliner chair at bedside at end of session Patient/Family Education: Topic: Balance Discharge planning Gait Safety Learner: patient and family Method: verbal Barriers to Learning: none noted Outcome: verbalized understanding and returned demonstration Team Communication: patient status discussed with RN prior to and after session Medical student contacted about vitals with activity as requested prior to session in secure chat Patient has been seen in physical therapy since 09/28. In this reporting period 09/28 to 09/29 the patient has been seen by a physical therapist. Please refer to the physical therapy notes for specifics on the patient's functional status and treatment sessions. ASSESSMENT: Physical therapy services in this setting have been discontinued secondary to: Patient has been or will be discharged from the hospital Physical Therapy Diagnosis: This patient presents with a Physical Therapy diagnosis of :Impaired gait, Impaired mobility, Impaired movement system, and Pain impacted by impairments of: activity tolerance, balance, endurance, muscle strength, posture, and safety awareness Physical Therapy Prognosis: patient continues to be modified independent with all bed mobility, transfers and he is independent with ambulation without an assistive device. Patient is mobilizing at alevel of mobility that allows for discharge home. Concern continues to be his tachycardia. Team is aware of rate with activity and plan is for home with family supervision. Patient has met acute PT goals listed below. Short-Term Goals: na Long-Term Goals: all met The patient will be able to perform bed mobility with modified independent demonstrating appropriate sequencing/motor planning. - MET The patient will be able to perform transfers with modified independent while demonstrating an effective strategy for recovery of loss of balance. The patient will be able to ambulate with modified independent with no loss of balance on level surfaces >/=150 feet with/without assistive device as needed. The patient will be able to perform stairs with supervision with home set up for rails. The patient and/or caregiver will be aware of the PT recommendations provided and verbalize and/or demonstrate understanding of the recommendations. PLAN: D/C Physical Therapy Recommended Discharge Destination: Home with family Recommended Discharge Services: No physical therapy follow-up services at this time Recommended Equipment Needs: No equipment necessary Other recommendations: No other consults recommended at this time Pager: [phone] Yesy Miramontes, PT 09/30/2023 15:01 * Kelly Mendez, GRIFFIN - 09/29/2023 1501 EDT Data: a flutter on tele. HR 90-110 this morning and midday. Around 1400 hr up to 130-140 at rest (patient asymptomatic). BP wnl. Eating and drinking ok. Lopez draining. Action: provider informed of hr and at bedside. Patient encouraged fluids. Tele in place. Bed alarmon. Response: HR self improved about 45 mins later. Patient still limited activity oob. Will continue to monitor. Denies chest pain, denies dizziness. Reports fatigue. KELLY MENDEZ RN 09/29/2023 15:02 * Callie Jenkins DPT - 09/29/2023 1442 EDT [facility] Rehabilitation Therapy Acute Therapy [facility] Physical Therapy Contact Note Date of Service: 09/29/2023 Pt received as a priority for d/c. Therapist arrived at bedside, pt resting comfortably, HR 90-100's. Pt mobilized himself at a level of independence to upright sitting EOB. Once seated EOB, HR notedto be in mid 130's sustained, remained asymptomatic. RN/Team both notified of his HR. Per nursing his HR has been stable 90-110's throughout the day, but he has not been mobilizing much. Pt remained sitting EOB and requested to eat lunch as he had limited breakfast, no changes in HR orsymptoms noted while sitting upright (130's), RN came to bedside to assess. Post eating ~8-10 minutes pt returned to supine, therapist monitoring HR mid 130's noted, with brief jumps into 140's while lying in bed with HOB elevated. He did experience intermittent drops into 120's, but would quickly return to 130's. RN present at bedside and both RN/PT re-notified Team of pt's current status via Gnip secure chat. BP's monitored and stable throughout. Further mobility progression held due to elevated HR. Plan for Team to come to bedside to assess, further testing be ordered as indicated. -Further d/c recommendation deferred due to limited mobility assessment. Finalized recommendations pending further assessment once medically appropriate to progress mobility and HR parameters for mobility are identified. ADDENDUM: Notified by pt's RN in regards to improvement in HR, 80-100's. Followed up with Team who clarified up to 140's with mobility is parameter and requested therapy return if time allowed for d/c planning. PT returned to bedside. Assessment: Resting supine HR: 80-90's, BP 111/67 Sitting EOB HR: 130's assessed manually with similar read, BP: 109/59 Standin/68 HR: Mid 130's Transfer: Re-assessed BP standin/50 HR: Mid 130's Sitting feet elevated: BP: 128/105 HR: 130's -Pt remained asymptomatic throughout Did not progress towards ambulation due to soft BP's with transfer. Pt expressed strong desire to return home tomorrow AM. He shared that he has a very strong support system in his spouse and family.With mobility today, he was grossly at a level of mod I-supervision assist (bed mobility/transfers). Although not ready today, anticipate that with medical improvement and mobility progression he woul d be able to d/c home with family support within next 1-2 days. PT will plan to follow to progress mobility and assist w/ d/c planning. Pt very adamant about d/cing directly home early in the morning. All information shared with Team. FULL NOTE TO FOLLOW Callie Jenkins DPT 09/29/2023 14:42 * Callie Jenkins, DPT - 09/29/2023 0840 EDT [facility] Rehabilitation Therapy Acute Therapies [facility] Physical Therapy Initial Evaluation Note Date of Service: 09/29/2023 Reason for Referral: Priority for D/C Precautions: Activity as tolerated and Up ad christiana, HR: <140 sustained with activity SUBJECTIVE: I just need some protein. Pain: Location: Tooth pain from infection Intensity:Numeric rating not provided Frequency: constant Quality: ache Aggravating factors: n/e Alleviating factors: n/e OBJECTIVE: Reason for hospitalization: Assessment: Per Dr. Mcmillan note 09/28/23 Lisandra Hollis is a 78 y.o. male no significant PMH that presents with kidney injury and electrolyte derangements iso of possible postrenal obstruction due to BPH. Since admission, he has been undergoing post-obstructive diuresis s/p Lopez placement (>15+ L UOP since admission). His hyponatremia and rapid correction in the setting of extreme diuresis have stabilized and we are now monitoring q8 hours. Hospital course complicated by atrial flutter with intermittent RVR and episodes of soft blood pressures. The low blood pressures could be due to hypovolemia in the setting of urinating 2L without much oral intake yesterday vs. aflutter with RVR. PatientProfile: Patient is a 78 y.o. male admitted on 09/24/2023 secondary to Hyponatremia [E87.1] Acute renal failure ([facility]) [N17.9] Acute bilateral obstructive uropathy [N13.9] NSTEMI (non-ST elevated myocardial infarction) ([facility]) [I21.4] MANUELITO (acute kidney injury) ([facility]) [N17.9] Acute renal failure, unspecified acute renal failure type ([facility]) [N17.9] The patient lives at [address] [id number] Home environment Lives:with family Caregiver Support: 24-hour assist of spouse Equipment Available: Cane and Rolling walker Home Environment: house Home Layout: One story. Entry stairs No stairs, has a lip to step over Prior Level of Function: Independent Services prior to admission: None Work/Leisure: Retired, but works in [employer] History: CURRENT: The patient has Acute bilateral obstructive uropathy and Urinary retention on their problem list. Medications: Medications reviewed Arousal, Attention, and Cognition: Orientation: Alert Oriented to person, place, and time Cardiopulmonary: Vital Signs: Activity Heart rate (bpm) Blood Pressure (mmHg) pre-activity 93 During (sitting EOB) 135 105/79 Post 130's, brief periods of 140 and drops into 120's, but mainly stayed in 130's sustained 120's/103 Pt remained asymptomatic throughout session FOLLOW UP SESSION Vital Signs:: Resting supine, HOB elevated. HR: 80-90's, BP 111/67 Sitting EOB HR: 130's assessed manually with similar read, BP: 109/59 Standin/68 HR: Mid 130's Transfer Bed-Chair: Re-assessed BP while standin/50 HR: Mid 130's Sitting feet elevated: BP: 128/105 HR: 130's -Pt remained asymptomatic throughout, therapist continuously monitoring for symptoms, but declined Other: N/A Integumentary/Anthropometric Characteristics: Palpation/Observation: gross skin assessment with no significant findings to areas without clothing/without dressings PIV Catheter Duration Peripheral IV 09/27/23 1256 Right Forearm 2 days Drain Duration Urethral Catheter 5 days Wound Duration Foam Border Prophylactic Dressing 09/26/23 1300 Coccyx 3 days -per pt chart summary Posture: Protracted shoulders Range of Motion and Joint Integrity: Within normal limits as demonstrated functionally. Muscle Performance: Manual muscle testing not formally performed in order to prioritize functional mobility. Strength observed to be at least 3/5 with gross movement. Sensation, Reflexes, and Nerve Integrity: Intact to light touch dermatome testing for BUE/LE Neuromotor Function/Development: No problems noted Balance, Mobility, and Gait: Balance: Pt tolerated sitting EOB ~8-10 minutes in first session and 3-4 second session at a level of supervision for vital sign monitoring, otherwise no stability concerns noted Balance deficits observed: dynamic standing: requires supervision to maintain balance Mobility: During all activities performed this patient was provided cues and education. These were provided to give movement techniques to: optimize ability for patient to participate in and perform task, decrease post procedure discomfort, optimize patient safety, adhere to precautions, and utilize pacing re commendations Rolling: N/E Bed mobility performed 1x early session and 1 time follow up Supine to Sit: modified independent 2x's to R side of bed, Sit to Supine: modified independent 2x's to R side of bed Follow up session: Sit to Stand: supervision with no device Stand to Sit: supervision with cane Transfers: supervision with cane EOB to Recliner Gait: Not evaluated as patient unable to progress to ambulatory level today. Self-Care, Home Management, Work, and Leisure: N/E at this time Outcomes: Please refer to individual sections for any outcome measures that were performed Informed Consent: The patient consented to the physical therapy evaluation. The patient agrees to and understands the physical therapy treatment plan and goals. Interventions Completed Today: Physical Therapy today at: 13:45-14:20 PM,16:05-16:25 PM Total care time: 35 minutes, 20 minutes (55 total) Timed code treatment minutes: 20 minutes (pm) Intervention included: Therapeutic activities: No intervention provided during initial session, progression of mobility deferred due to HR and awaiting further clarification from physicians. End of session: Pt in bed, call lee in reach, RN aware of pt status and at bedside with family Follow up session: Therapeutic Activity: (2) -pt resting in bed on therapist arrival Bed Mobility: Supine to sit: Mod I with HOB slightly elevated, no use of bed features Static sitting: EOB ~3-4 minutes at a level of supervision for BP/HR monitoring, no unsteadiness noted Transfers: Sit to stand: From EOB at a level of supervision, no use of AD,did appear to brace LE's against EOBto support transfer Stand to sit: supervision with cane to recliner Stand-step transfer: EOB to Recliner at a level of close supervision assist x1 w/ cane Skilled discussion: Recommended pt have assistance with mobility at this time from nursing staff Discussed role of therapy to assist w/ d/c planning, pt with strong desire to return home tomorrow AM with support of family, therapist noted that due to vitals could not support functional d/c today, but is hopeful for home d/c with family pending medical improvement to progress function. Therapeutic Activity: During all functional activities noted above this patient was provided with manual assist and education via combination of verbal and demonstration. These were provided to give movement techniques to: optimize ability for patient to participate in and perform task, optimize patient safety, adhere to precautions, and utilize pacing recommendations End of session: Pt in recliner, call lee in reach, BLE elevated, RN aware of pt status (discussed need for chair alarm)- RN will place if determine indicated Patient/Family Education: Topic: Activity pacing/Energy conservation Assistive device/technique Balance Bed mobility Discharge planning Equipment use Gait Precautions/protocol Role of therapy Safety Transfers Learner: patient/family Method: verbal Barriers to Learning: none noted Outcome: requires assist, needs practice, verbalized understanding, and returned demonstration Team Communication: Nurse Physician Phone Conversation and Xi[place]o secure chat/ face to face Prior to therapy session, During therapy session, and After therapy session Performance during Physical Therapy and recommendations for mobility with nursing, Discharge recommendations, Mobility recommendations, Patient status, and vitals: BP/HR response in both 1st/second sessions- see below 1st session: Once seated EOB, HR noted to be in mid 130's sustained, remained asymptomatic. RN/Team both notified of his HR. Per nursing his HR has been stable 90-110's throughout the day, but he has not been mobilizing much. -Post eating ~8-10 minutes pt returned to supine, therapist monitoring HR mid 130's noted, with brief jumps into 140's while lying in bed with HOB elevated. He did experience intermittent drops into 120's, but would quickly return to 130's. RN present at bedside and both RN/PT re-notified Team of pt's current status via Gnip secure chat. BP's monitored and stable throughout. Further mobility progression held due to elevated HR. Plan for Team to come to bedside to assess, further testing be ordered as indicated. Post 1st session: Notified by pt's RN in regards to improvement in HR, 80-100's. Followed up with Team who clarified up to 140's with mobility is parameter and requested therapy return if time allowed for d/c planning. PT returned to bedside. 2nd session: Therapist nurse present throughout session. Team notified post session of orthostatic vital signs, although asymptomatic. Notified Team of pt's request for follow up conversation in regards to plan to d/c. ASSESSMENT: Physical Therapy Diagnosis: This patient presents with a Physical Therapy diagnosis of :Impaired gait, Impaired mobility, Impaired movement system, and Pain impacted by impairments of: activity tolerance, balance, endurance, muscle strength, posture, and safety awareness Physical Therapy Prognosis: Physical therapy is medically necessary to: address these body structure/function impairments, activity limitations, and participation restrictions, establish and progress mobility/exercise and provide recommendations for staff and safe discharge planning, facilitate return to prior level of function, improve safety and independence, provide education in a home exercise program to address impairments in body function and structures and promote increased activity and participation, and provide family/caregiver education to assist the patient Current status compared to baseline level of function: below prior level of function Anticipated rate of progress: Slow and steady Progress may be affected by the following: strengths: baseline knowledge, capacity for carryover of new learning, cognition, family/social support, home environment, motivation, participation level, and previous level of function barriers: acute medical issues, age, co-morbidities, endurance, fall risk, and vital sign response to activity Discharge recommendations: Anticipate home with caregiver support/supervision Pt was appropriate for skilled PT evaluation and intervention in the acute care setting. With mobility today, he was grossly at a level of mod I-supervision assist (bed mobility/transfers). His ability to further progress functional movement was limited by his HR and BP response to activity, his medical Team was notified and will continue to address as indicated, he remained asymptomatic throughout. Although, not ready today, anticipate that with medical improvement and mobility progression he would be able to d/c home with family support within next 1-2 days. Pt very adamant about d/cing directly home early in the morning. He shared that he has a very strong support system in his spouse and family. All information shared with Team. PT will plan to continue to follow to progress mobility and assist w/ d/c planning. Short-Term Goals: N/A Long-Term Goals: 1-3 weeks The patient will be able to perform bed mobility with modified independent demonstrating appropriate sequencing/motor planning. - MET The patient will be able to perform transfers with modified independent while demonstrating an effective strategy for recovery of loss of balance. The patient will be able to ambulate with modified independent with no loss of balance on level surfaces >/=150 feet with/without assistive device as needed. The patient will be able to perform stairs with supervision with home set up for rails. The patient and/or caregiver will be aware of the PT recommendations provided and verbalize and/or demonstrate understanding of the recommendations. PLAN: Necessity: Continue per established plan of care Frequency: 1-3x/wk Intensity: 15-60 minutes Duration: During hospitalization Intervention to include: Gait training, Neuromuscular re-education, Self care/home management, Therapeutic activities, Therapeutic exercise Patient/Family Education: Role of PT, Discharge planning, Equipment, Safety, Fall prevention, Precautions Further Data: Continued evaluation, Mobility progression, and Initiate stairs as indicated Recommended Discharge Destination: Anticipate Home with caregiver support/supervision Recommended Discharge Services: PT at d/c location Recommended Equipment Needs: Patient has all necessary equipment Other recommendations: No other consults recommended at this time Pager: [phone] Callie Jenkins DPT 09/29/2023 8:40 * Donna Valencia, DO - 09/29/2023 0648 EDT Medicine Progress Note Service Date: 09/29/2023 Admit Date: 09/24/2023 16:13 Reason for Admission: 78 y.o. male admitted with a chief complaint of pre- dominantly left-sided groin pain now with a principal diagnosis of electrolyte derangements in the setting of postrenal obstruction. 24 Hour Events: NAEO Subjective/Objective Subjective Lisandra Hollis is doing well today and denies any complaints. He is excited at the possibility of being discharged tomorrow. Corwin's daughter and her are at bedside. We discussed his hospitalization course. We went over what new medications he will begin and the necessity to not take hissupplements. They were updated of the plan to discharge tomorrow morning and how to get to the urology office for his outpatient appointment at 830 am. Nursing and PT messaged the primary team due to concern for atrial flutter and tachycardia and occasional soft bps sofie when standing. Pt reported no associated symptoms such as lightheadedness, SOB, or chest pain. Pt reported this was due to poor oral intake and emotions. Per PT he was unable to ambulate with PT due to these soft blood pressures and thus couldn't technically be cleared from a PT perspective. However he was insistent that he would leave tomorrow regardless. Review of Systems: As above Objective Vital Signs: BP Min: 86/59 Max: 125/81 BP MAP Min: 69 mm Hg Max: 85 mm Hg Pulse From Oximetry Min: 53 BPM Max: 98 BPM Resp Min: 18 Max: 20 Temp Min: 36.6 ??C (97.9 ??F) Max: 36.9 ??C (98.4 ??F) SpO2 Min: 93 % Max: 99 % O2 Device: None No data recorded Weight : 85.7 kg (189 lb) Weight Min: 85.7 kg (189 lb) Min taken time: 09/25/23 0800 Max: 86 kg (189 lb 9.5 oz) Max taken time: 09/24/23 1325 I&O: Intake/Output Summary (Last 24 hours) at 09/29/2023 0649 Last data filed at 09/29/2023 0534 Gross per 24 hour Intake 510 ml Output 2250 ml Net -1740 ml Physical Exam: General: Alert & awake and in NAD HEENT: Normocephalic and atraumatic. Cardiac: tachycardic, irregular, no murmurs, gallops or rubs. Respiratory: Normal work of breathing, clear to auscultation bilaterally with no adventitious sounds noted. Ext: No peripheral edema. Neuro: Alert and oriented, no focal deficits, moves all 4 extremities spontaneously. Skin: Warm, no jaundice or rashes appreciated. Psych: Appropriate mood and affect. Is PICC or central line present? No, PICC/Central line not present. Medications: Scheduled Continuous PRN enoxaparin, 40 mg, DAILY finasteride, 5 mg, DAILY polyethylene glycol 3350, 17 g, BID senna, 2 Tablet, QHS TAMSulosin, 0.4 mg, DAILY acetaminophen, 650 mg, Q6H PRN bisacodyL, 10 mg, Daily PRN lidocaine, , PRN lidocaine, 2 mg, PRN ramelteon, 8 mg, AT BEDTIME PRN Labs: CBC: Recent Labs 09/27/23 0538 09/28/23 0542 09/29/23 0550 WBC 7.38 8.06 8.55 HGB 11.9* 12.2* 12.3* HCT 33.3* 35.8* 35.5* MCV 88 92 91 PLT 326 343 324 BMP: Recent Labs 09/27/23 2152 09/28/23 0542 09/29/23 0549 NA 135* 133* 136 K 4.2 4.7 4.5 CL 102 99 103 CO2 26 26 24 BUN 16 15 15 CREATININE 0.76 0.74 0.82 CALCIUM 8.3* 8.3* 8.3* SERGLU 135* 106* 100* Hemoglobin A1C: Lab Results Component Value Date HGBA1C 5.7 (H) 09/25/2023 TRANSTHORACIC ECHO (TTE) Date: 09/25/2023 Impressions: Pericardium: Image quality is suboptima. There did not appear to be any significant pericardial effusion. There was a left pleural effusion visualized. Left Ventricle: The left ventricular cavity was normal in size. Left ventricular systolic function was normal with an ejection fraction of 55-60% by visual estimate. The study is not technically sufficient to allow evaluation of left ventricular diastolic function. Although no diagnostic regional wall motion abnormality was identified, this possibility cannot be completely excluded on the basis of this study. Right Ventricle: The right ventricular cavity was normal in size. Right ventricular systolic function was normal. CT AP WITHOUT CONTRAST (Outside Hospital) Date: 09/24/2023 Impressions: Markedly distended urinary bladder. No stones or masses identified. The prostate gland is mildly enlarged. Dilatation of the renal collecting systems bilaterally, predominantly involving the renal pelves. There is infiltration in fluid seen surrounding the left kidney. This may represent calyceal/forniceal rupture. No radiopaque stone is identified. A radiolucent stone or proximal ureteral mass should be considered. Dilatation of the collecting systems may also be a sequelae of the distended urinary bladder. Moderate left pleural effusion and left basilar infiltrate which may represent atelectasis or pneumonia. Colonic diverticuloses without evidence of acute diverticulitis. A postcontrast CT scan or MRI of the abdomen and pelvis is recommended. Indeterminate 2 cm hypodensity in the superior pole of the left kidney. Assessment/Plan Assessment Lisandra Hollis is a 78 y.o. male no significant PMH that presents with kidney injury and electrolyte derangements iso of possible postrenal obstruction due to BPH. Since admission, he has been undergoing post-obstructive diuresis s/p Lopez placement (>15+ L UOP since admission). His hyponatremia and rapid correction in the setting of extreme diuresis have stabilized. Hospital course complicated by atrial flutter with intermittent RVR and episodes of soft blood pressures. The low blood pressures could be due to hypovolemia in the setting of excessive urination without much oral intake. Plan #Moderate Hyponatremia At sodium goal. Goal correction 6-8 mEq -Daily BMP -Continue regular diet with fluid restriction 1.5 L -Lopez in #Post obstructive diuresis #Hypotension Maintaining MAP > 68 -1 L LR bolus for soft BPs - Monitor I/Os, BMPs as above - Monitor BP - Acetaminophen 650 mg q6h PRN #Atrial flutter with variable ventricular response: Rate to 140 overnight 09/24, asymptomatic, RVR self-resolved after patient declined medical intervention. ECG 09/23 without ischemic changes asymptomatic intermittently in RVR. Repeated ECG 09/26 without ischemic changes but with atrial flutter. If goes into RVR can discuss with patient about starting a Ca channel priscilla. Repeat EKG 09/28 - atrial flutter still present - consider outpatient anticoagulation -On tele #Post obstructive MANUELITO, improving #Hyperkalemia, improved #Anion gap metabolic acidosis with respiratory alkalosis, resolved Creatinine on admission 12.37 (19.9 at outside hospital), now improved to 0.90. Markedly dilated bladder on outlying facility CT AP 09/23 likely causing the calyceal rupture of the left kidney vs. proximal ureteral mass. Potentially in the setting of BPH. -BMP daily -Lidocaine jelly for lopez catheter pain -Consulted urology 09/24, recommended -Has an outpatient urology follow up appointment at 830 AM 09/[address] Horvath -Continue lopez catheter. Urology will arrange voiding trial in 1 week. If patient is still admitted, can have TOV in house -CT renal mass protocol in 1 month -Follow up 2 cm mass in outpatient urology clinic -Continue Flomax and Finasteride #Constipation - Senna 2 tablets at bedtime, Miralax 17 g BID, Dulcolax 10 mg daily PRN #BPH Reported 1-2 year history of difficulty initiating urination, 3-4 years of decreased sexual function, 11 days of inability to urinate. -Lopez in place -Tamsulosin 0.4 mg daily, finasteride 5 mg daily #Hyperglycemia - Regular diet, SSI Discharge Plan Home or self care Consults Urology Bhavana Perez MD ATTENDING ATTESTATION: Date of service: 09/29/2023 I interviewed and examined the patient; reviewed interval labs, events, and notes. I discussed the case with the medicine house staff team and agree with and addended (in blue) the findings and plan of care as documented in resident note above. Patient clinically improving with resolved renal failure, decreased post- obstructive diuresis and stable Na in normal range. Medically nearing discharge, limited by orthostasis and tachycardia when moving. Will give IVF tonight and anticipate discharge on 09/29 with family, who were updated at bedside. Donna Valencia DO IM Hospitalist Pager [phone] 09/30/23 15:32 * Swapna Juarez - 09/28/2023 7484 EDT Initial Case Management/Social Work Assessment and Discharge Plan/Readmission Risk Assessment REASON FOR ADMISSION: Acute bilateral obstructive uropathy Patient understands reason for admission: Yes PATIENT INFO VERIFIED: PCP not verified Type of housing (single family, condo, apartment, halfway, single room occupancy, [facility] funded hotel room, group senior living) - [facility] Who does the patient live with? spouse Does the patient have access to their own bedroom/bathroom/kitchen - or is it shared with others? shared Name of housing complex (ex [facility], [facility], etc)- n/a Housing Authority/Managing Organization - n/a Community Care Providers (leather case finisher, [facility] nurse, etc) name and contact information- n/a Discharge Delay Risk Assessment 1. Disease/Medical Condition: Diseases or conditions that result in ADL decline or continuous medical treatment 2. Hospitalization: Unplanned admission 3. Family Structure: Households of older couples (generally over 75 years of age) 4. Activities of daily living: Nursing or support will be required at discharge Major Barrier day total 1-6: 4 Risk for Delayed Discharge: At Risk For Delayed Discharge Minor or major discharge risk delay(s) present?: No discharge barriers identified Does the patient meet criteria to be escalated?: No LIVING ARRANGEMENTS AND ACCESSIBILITY ISSUES: Living Arrangements: Spouse / significant other Levels: 2 Stairs to enter: 0 Handicap access: Railings to upstairs Bathroom located on bedroom level?: Yes What in home social supports are available to the patient? Family member(s), Spouse / significant other Is 03/09 care available? Yes ADVANCED DIRECTIVES, POA &/or COLST IN PLACE: DIRECTIVES FOR FINANCES: TRANSPORTATION: Transportation: Family, Self Does the patient need discharge transport arranged?: No Expected Discharge on IV Antibiotics: No Final Discharge Destination: home CULTURAL, YAZIDISM and/or LANGUAGE factors affecting health care/discharge planning: Spiritual/Cultural Requests: Completed Insurance Information: Nutrition: DISCHARGE RISK ASSESSMENT: None of the above risks identified Total # selected above: Score of 1 - 2: This patient is at LOW RISK for re-hospitalization Tentative plan to address the risk of re-hospitalization for those at HIGH MODERATE RISK: Bring risk factors to attention of team to be addressed RAPT TOOL: Age: >75 Gender: Male Ambulation distance: 2 or more blocks (600ft) Gait device: None Community Services: Home health, MOW, SASH-none of one time a week Will you live with someone who will care for you?: Yes RAPT Tool Score: 10 Expected Discharge Disposition: Home or Self Care SBIRT: SASQ (Single Alcohol Screening Question) How many times in the past year have you had 5 or more drinks in a single day?: Never How many times in the past year have you used an illegal drug or used a prescription medication fornon-medical reasons?: Never Intervention in place/initiated?: No, not indicated FUNCTIONAL STATUS: Activities patient requires assistance: None Assistive Devices: Cane COMMUNITY RESOURCES/SUPPORTS: Primary Care Provider: Provider None PCP Verified: Specialists: None Type of Home Health Services: None DME Provider: Pharmacy: No Pharmacies Listed Home Health: Other: POST HOSPITAL TRANSITION PLAN: Patient is a 78 year old male who is alert and oriented x3. Patient lives in a [facility] with his Na. He is an active person, fischer who is used to having an active lifestyle with good nutrition. Corwin shared that they have 2 houses on their property and both are2 levels with 10 steps (with railings) inside to get to bathrooms. Corwin does not have a PCP, he would like assistance from Primary CM at sd to explore PCP options. Plan to sd home pending clinical course and PT eval. Patient open to home health if needed. may be able to provide transport home at sd. Primary CM to follow SWAPNA JUAREZ 09/28/2023 15:47 Hue Juarez, INSURANCE COMPLIANCE ANALYST, WOODEN BARREL MECHANIC * Kelly Mendez, GRIFFIN - 09/28/2023 1058 EDT Data: assumed care 0700. HR 130 with a flutter on tele this morning. Up to bedside commode. Lopez in place. Lower ext weakness. Oriented but forgetful and anxious. BP's today wnl. I&O's. Action: provider notified on HR. Tele in place. Bed alarm on. Assisted up to commode. Documenting I&O's. Response: HR improved to 90-100 midday. Moved bowels today following week on constipation. Lopez draining clear urine. BP wnl today. KELLY MENDEZ RN 09/28/2023 10:58 * Callie Jenkins DPT - 09/28/2023 1028 EDT [facility] Acute [facility] Contact Note Date of Service: 09/28/2023 Chart reviewed. Pt's HR variable, awaiting to place him on telemetry prior to ambulation. RN awaiting for orders to be placed by medical Team. PT will follow up later today vs. Tomorrow pending schedule availability and orders being updated. Callie Jenkins DPT 09/28/2023 10:28 * Donna Valencia DO - 09/28/2023 0704 EDT Images from the original note were not included. Medicine Progress Note Service Date: 09/28/2023 Admit Date: 09/24/2023 16:13 Reason for Admission: 78 y.o. male admitted with a chief complaint of pre- dominantly left-sided groin pain now with a principal diagnosis of electrolyte derangements in the setting of possible postrenal obstruction. 24 Hour Events: - overnight gave another 500mL LR bolus for MAPs ~65 while still in RVR. - Na has remained stable Subjective/Objective Subjective Lisandra Hollis reports feeling well this morning. Remains asymptomatic from his elevated heart rates. He states he feels completely fine and his major concern is for his who recently broke her leg. Otherwise, denies any chest pain, SOB, palpitations, dizziness/lightheadedness, abdominal pain, N/V, diarrhea, constipation, or headache. Review of Systems: As above Objective Vital Signs: BP Min: 80/56 Max: 118/81 BP MAP Min: 64 mm Hg Max: 87 mm Hg Pulse From Oximetry Min: 79 BPM Max: 130 BPM Resp Min: 10 Max: 19 Temp Min: 36.3 ??C (97.4 ??F) Max: 36.8 ??C (98.2 ??F) SpO2 Min: 95 % Max: 99 % O2 Device: None O2 Flow Rate (L/min) Min: 0 l/min Max: 0 l/min Weight : 85.7 kg (189 lb) Weight Min: 85.7 kg (189 lb) Min taken time: 09/25/23 0800 Max: 86 kg (189 lb 9.5 oz) Max taken time: 09/24/23 1325 I&O: Intake/Output Summary (Last 24 hours) at 09/28/2023 0704 Last data filed at 09/28/2023 0600 Gross per 24 hour Intake 1850 ml Output 950 ml Net 900 ml Physical Exam: General: Alert & awake and in NAD HEENT: Normocephalic and atraumatic. Cardiac: tachycardic, irregular, no murmurs, gallops or rubs. Respiratory: Normal work of breathing, clear to auscultation bilaterally with no adventitious sounds noted. Ext: No peripheral edema. Neuro: Alert and oriented, no focal deficits, moves all 4 extremities spontaneously. Skin: Warm, no jaundice or rashes appreciated. Psych: Appropriate mood and affect. Is PICC or central line present? No, PICC/Central line not present. Medications: Scheduled Continuous PRN enoxaparin, 40 mg, DAILY finasteride, 5 mg, DAILY polyethylene glycol 3350, 17 g, BID senna, 2 Tablet, QHS TAMSulosin, 0.4 mg, DAILY acetaminophen, 650 mg, Q6H PRN bisacodyL, 10 mg, Daily PRN lidocaine, , PRN lidocaine, 2 mg, PRN ramelteon, 8 mg, AT BEDTIME PRN Labs: CBC: Recent Labs 09/26/23 0210 09/27/23 0538 09/28/23 0542 WBC 8.06 7.38 8.06 HGB 12.6* 11.9* 12.2* HCT 35.1* 33.3* 35.8* MCV 88 88 92 PLT 341 326 343 BMP: Recent Labs 09/27/23 0954 09/27/23 1455 09/27/23 2152 NA 132* 134* 135* K 4.3 5.1* 4.2 CL 102 103 102 CO2 22 20* 26 BUN 18 21 16 CREATININE 0.76 0.74 0.76 CALCIUM 8.5 8.5 8.3* SERGLU 121* 127* 135* Hemoglobin A1C: Lab Results Component Value Date HGBA1C 5.7 (H) 09/25/2023 EKG 09/27 TRANSTHORACIC ECHO (TTE) Date: 09/25/2023 Impressions: Pericardium: Image quality is suboptima. There did not appear to be any significant pericardial effusion. There was a left pleural effusion visualized. Left Ventricle: The left ventricular cavity was normal in size. Left ventricular systolic function was normal with an ejection fraction of 55-60% by visual estimate. The study is not technically sufficient to allow evaluation of left ventricular diastolic function. Although no diagnostic regional wall motion abnormality was identified, this possibility cannot be completely excluded on the basis of this study. Right Ventricle: The right ventricular cavity was normal in size. Right ventricular systolic function was normal. CT AP WITHOUT CONTRAST (Outside Hospital) Date: 09/24/2023 Impressions: Markedly distended urinary bladder. No stones or masses identified. The prostate gland is mildly enlarged. Dilatation of the renal collecting systems bilaterally, predominantly involving the renal pelves. There is infiltration in fluid seen surrounding the left kidney. This may represent calyceal/forniceal rupture. No radiopaque stone is identified. A radiolucent stone or proximal ureteral mass should be considered. Dilatation of the collecting systems may also be a sequelae of the distended urinary bladder. Moderate left pleural effusion and left basilar infiltrate which may represent atelectasis or pneumonia. Colonic diverticuloses without evidence of acute diverticulitis. A postcontrast CT scan or MRI of the abdomen and pelvis is recommended. Indeterminate 2 cm hypodensity in the superior pole of the left kidney. Assessment/Plan Assessment Lisandra Hollis is a 78 y.o. male no significant PMH that presents with kidney injury and electrolyte derangements iso of possible postrenal obstruction due to BPH. Since admission, he has been undergoing post-obstructive diuresis s/p Lopez placement (>15+ L UOP since admission). His hyponatremia and rapid correction in the setting of extreme diuresis have stabilized and we are now monitoring q8 hours. Hospital course complicated by atrial flutter with intermittent RVR and episodes of soft blood pressures. The low blood pressures could be due to hypovolemia in the setting of urinating 2L without much oral intake yesterday vs. aflutter with RVR. Plan #Moderate Hyponatremia At sodium goal. Goal correction 6-8 mEq -Daily BMP -Continue regular diet with fluid restriction 1.5 L -Lopez in #Post obstructive diuresis #Hypotension Maintaining MAP > 68 -500 cc LR bolus BPs fluid responsive - Monitor I/Os, BMPs as above - Monitor BP - Acetaminophen 650 mg q6h PRN #Atrial flutter with variable ventricular response: Rate to 140 overnight 09/24, asymptomatic, RVR self-resolved after patient declined medical intervention. ECG 09/23 without ischemic changes asymptomatic intermittently in RVR. Repeated ECG 09/26 without ischemic changes but with atrial flutter. If goes into RVR can discuss with patient about starting a Ca channel priscilla. Repeat EKG 09/27 - atrial flutter still present but at normal rate <100 - consider outpatient anticoagulation CHADsVasc is 2 in absence of real medical history. Will discuss anticoagulation with patient but given preference thus far to minimize medications anticipate this will be OP discussion -On tele #Post obstructive MANUELITO, improving #Hyperkalemia, improved #Anion gap metabolic acidosis with respiratory alkalosis, resolved Creatinine on admission 12.37 (19.9 at outside hospital), now improved to 0.90. Markedly dilated bladder on outlying facility CT AP 09/23 likely causing the calyceal rupture of the left kidney vs. proximal ureteral mass. Potentially in the setting of BPH. -BMP daily -Lidocaine jelly for lopez catheter pain -Consulted urology 09/24, recommended -Continue lopez catheter. Urology will arrange voiding trial in 1 week. If patient is still admitted, can have TOV in house -CT renal mass protocol in 1 month -Follow up 2 cm mass in outpatient urology clinic -Continue Flomax and Finasteride #Constipation Patient reports not having regular bowel movements for ~12 days, but has passed pellet-sized stoolsduring that period of time. Had normal BM today - Senna 2 tablets at bedtime, Miralax 17 g BID, Dulcolax 10 mg daily PRN #BPH Reported 1-2 year history of difficulty initiating urination, 3-4 years of decreased sexual function, 11 days of inability to urinate. -Lopez in place -Tamsulosin 0.4 mg daily, finasteride 5 mg daily #Hyperglycemia Serum glucose 272, A1c 5.7 on 09/24. - Regular diet, SSI Discharge Plan Home or self care Consults Urology Sami Mcmillan DO PGY1 Anesthesia 09/28/23 7:04 ATTENDING ATTESTATION: Date of service: 09/28/2023 I interviewed and examined the patient; reviewed interval labs, events, and notes. I discussed the case with the medicine house staff team and agree with and addended (in blue) the findings and plan of care as documented in resident note above. Significant overall improvement. Na has been stable for several days without signs of ODS. Primary reason for continued hospitalization is fluid management in setting of ongoing post-obstructive autodiuresis with concurrent hypotension and atrial flutter with RVR, which have both been fluid responsive so far. Anticipate improvement in coming days, possibly even discharge ready on 09/28. Will need to coordinate OP follow up- with urology this week for voiding trial and establish new PCP for further discussions of atrial flutter. Unclear if atrial flutter is reaction to current illness or indiciative of more longstanding problem- would favor d/c with holter monitor as well to monitor and guidefurther management (AC and rate control, if needed). Donna Valencia DO IM Hospitalist Pager [phone] 09/29/23 8:39 * Hilaria Tavares - 09/27/2023 1436 EDT CM woke patient from a nap and patient requested that CM come back later. DEEPIKA Rowland, Shakeel. Ed. Yoghurt Maker II Social Work and Case Management * Donna Valencia, - 09/27/2023 0712 EDT Medicine Progress Note Service Date: 09/27/2023 Admit Date: 09/24/2023 16:13 Reason for Admission: 78 y.o. male admitted with a chief complaint of pre- dominantly left-sided groin pain now with a principal diagnosis of electrolyte derangements in the setting of possible postrenal obstruction. 24 Hour Events: NAEO Subjective/Objective Subjective Patient is complaining of chest tightness since last night after eating a cheesburger and lightheadedness/dizziness that is worse with ambulation. He endorses pain at his lopez site. Review of Systems A ten point review of systems was performed and was negative except for pertinent positives noted in the HPI Objective Vital Signs Temp: [36.5 ??C (97.7 ??F)-37.2 ??C (98.9 ??F)] , Heart Rate: [74 BPM-132 BPM] , Resp: [9-21] , BP:(71-102)/(57-74) , SpO2: [93 %-98 %] Physical Exam General: Alert, awake, and oriented - patient is in no acute distress Cardiac: No murmurs, gallops, or rubs auscultated. Distal pulses intact bilaterally. No peripheral edema. Respiratory: Breath sounds are clear in all lobes bilaterally without rales, ronchi, or wheezes. Nosigns of respiratory distress. Abdominal: non-distended, bowel sounds normoactive, soft, mildly tender to palpation Neuro/Psych: No focal deficits, A&O x 3, 5/5 strength in UE, moves all 4 extremities against gravity, responds appropriately, although confabulates Is PICC or central line present? No, PICC/Central line not present. Medications Reviewed: Labs Reviewed: CBC: Recent Labs 09/24/23 1713 09/25/23 0626 09/26/23 0210 09/27/23 0538 WBC 7.76 8.08 8.06 7.38 RBC 4.23* 3.92* 3.99* 3.80* HGB -- 12.4* 12.6* 11.9* HCT 35.6* 33.5* 35.1* 33.3* MCV 84 86 88 88 MCH -- 31.6 31.6 31.3 MCHC -- 37.0* 35.9 35.7 PLT 318 372 341 326 NEUTROABS 6.36 -- -- -- BMP: Recent Labs 09/24/23171309/24/23191309/24/23210109/25/23 0144 09/26/23212509/27/23 02009/27/23 0538 NA 122* -- 128* < > 131* 130* 131* K 5.4* -- -- < > 4.4 4.6 4.8 CL 85* -- -- < > 98 101 102 CO2 12* -- -- < > 24 25 23 BUN >120* < > -- < > 16 20 19 CREATININE -- < > -- < > 0.80 0.76 0.71 CALCIUM 8.6 -- -- < > 8.5 8.3* 8.3* MG 3.2* -- -- -- -- -- -- PHOS -- -- 7.8* -- -- -- -- LABALBU 4.1 -- -- -- -- -- -- < > = values in this interval not displayed. LFT: Recent Labs 09/24/231713 TBIL 0.7 ALKPHOS 57 AST 21 ALT 14 Cardiac Markers: Recent Labs 09/24/23171309/24/23210109/25/23 0626 TROPONINI 0.123* 0.132* 0.065* Thyroid Function: Recent Labs 09/24/23171309/25/23 0626 TSH 2.14 2.25 Imaging Reviewed: TRANSTHORACIC ECHO (TTE) Date: 09/25/2023 Impressions: Pericardium: Image quality is suboptima. There did not appear to be any significant pericardial effusion. There was a left pleural effusion visualized. Left Ventricle: The left ventricular cavity was normal in size. Left ventricular systolic function was normal with an ejection fraction of 55-60% by visual estimate. The study is not technically sufficient to allow evaluation of left ventricular diastolic function. Although no diagnostic regional wall motion abnormality was identified, this possibility cannot be completely excluded on the basis of this study. Right Ventricle: The right ventricular cavity was normal in size. Right ventricular systolic function was normal. CT AP WITHOUT CONTRAST (Outside Hospital) Date: 09/24/2023 Impressions: Markedly distended urinary bladder. No stones or masses identified. The prostate gland is mildly enlarged. Dilatation of the renal collecting systems bilaterally, predominantly involving the renal pelves. There is infiltration in fluid seen surrounding the left kidney. This may represent calyceal/forniceal rupture. No radiopaque stone is identified. A radiolucent stone or proximal ureteral mass should be considered. Dilatation of the collecting systems may also be a sequelae of the distended urinary bladder. Moderate left pleural effusion and left basilar infiltrate which may represent atelectasis or pneumonia. Colonic diverticuloses without evidence of acute diverticulitis. A postcontrast CT scan or MRI of the abdomen and pelvis is recommended. Indeterminate 2 cm hypodensity in the superior pole of the left kidney. Assessment/Plan Assessment Lisandra Hollis is a 78 y.o. male no significant PMH that presents with kidney injury and electrolyte derangements iso of possible postrenal obstruction due to BPH. Since admission, he has been undergoing post-obstructive diuresis s/p Lopez placement (>15+ L UOP since admission). His hyponatremia and rapid correction in the setting of extreme diuresis have stabilized and we are now monitoring q8 hours. Hospital course complicated by atrial flutter with intermittent RVR and episodes of soft blood pressures. The low blood pressures could be due to hypovolemia in the setting of urinating 2L without much oral intake yesterday vs. aflutter with RVR. Plan #Moderate Hyponatremia At sodium goal. Goal correction 6-8 mEq -BMP q8h -Continue regular diet with fluid restriction 1.5 L -Lopez in #Post obstructive diuresis #hypotension Maintaining MAP > 68 -500 cc LR bolus - Monitor I/Os, BMPs as above - Monitor BP - Acetaminophen 650 mg q6h PRN #Atrial flutter with variable ventricular response: Rate to 140 overnight 09/24, asymptomatic, RVR self-resolved after patient declined medical intervention. ECG 09/23 without ischemic changes asymptomatic intermittently in RVR. Repeated ECG 09/26 without ischemic changes but with atrial flutter. If goes into RVR can discuss with patient about starting a Ca channel priscilla. -On tele #Post obstructive MANUELITO, improving #Hyperkalemia, improved #Anion gap metabolic acidosis with respiratory alkalosis, resolved Creatinine on admission 12.37 (19.9 at outside hospital), now improved to 0.90. Markedly dilated bladder on outlying facility CT AP 09/23 likely causing the calyceal rupture of the left kidney vs. proximal ureteral mass. Potentially in the setting of BPH. -BMP q8 -Lidocaine jelly for lopez catheter pain -Consulted urology 09/24, recommended -Continue lopez catheter. Urology will arrange voiding trial in 1 week. If patient is still admitted, can have TOV in house -CT renal mass protocol in 1 month -Follow up 2 cm mass in outpatient urology clinic -Continue Flomax and Finasteride #Constipation Patient reports not having regular bowel movements for ~12 days, but has passed pellet-sized stoolsduring that period of time. - Senna 2 tablets at bedtime, Miralax 17 g BID, Dulcolax 10 mg daily PRN #BPH Reported 1-2 year history of difficulty initiating urination, 3-4 years of decreased sexual function, 11 days of inability to urinate. -Lopez in place -Tamsulosin 0.4 mg daily, finasteride 5 mg daily #Hyperglycemia Serum glucose 272, A1c 5.7 on 09/24. - Regular diet, SSI Discharge Plan Home or self care Consults Urology Bhavana Perez MD 09/27/2023 7:13 ATTENDING ATTESTATION: Date of service: 09/27/2023 I interviewed and examined the patient; reviewed interval labs, events, and notes. I discussed the case with the medicine house staff team and agree with and addended (in blue) the findings and plan of care as documented in resident note above. Clinically remains stable overnight with Na ~132 which is lower than acceptable target. He has firmroots in holistic medicine and seems to confabulate, but has no focal neurologic deficits and has been receptive to our treatments. More persistent tachycardia with worsening hypotension overnight I suspect related to ongoing post obstructive diuresis (>13L since admission, <500 cc input yeste rday). Given he is ~36 hours from last DDAVP dose, will trial bolus of LR as above and add CCB if refractory (to which he was amenable on our discussion, but had previously declined earlier in admission). Similarly, will involve PT (if accepting) and space BMP to q8h. Provided continued improvement, anticipate discharge readiness in coming days- to home, but with clear recommendations to discontinue numerous herbal supplements, and with indwelling lopez/ close OP urology follow up. Donna Valencia DO IM Hospitalist Pager [phone] 09/27/23 14:56 * Mercedez Ware RN - 09/26/2023 1728 EDT Data: pt is a 75 y.o male, admitted for adominal and groin pain over a week, with cessation of urine, lopez cath now in place and draining. Pt is axox3, anxious/tearful, needs reiteration on situation. Limited Hx due to pt lack of visits, pain reported throughout shift. Action: meds given per eMAR, hourly rounding and safety checks performed. Pt refused offered PRN interventions. Response: pt resting in bed now, call lee within reach. Will continue to assess pain. NINA HOPE RN 09/26/2023 17:28 * Nina Hope RN - 09/26/2023 1553 EDT FOUR EYES SKIN ASSESSMENT Four Eyes skin assessment was performed on admission to the unit by Nina Hope RN and Mercedez Ware. Patient has the following devices at the time of this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 09/25/23 0144 09/25/23 0626 09/25/23 1006 09/25/23 1348 NA 122* -- 128* < > 128* 131* 125* K 5.4* -- -- < > 4.1 4.7 4.3 CL 85* -- -- < > 93* 92* 92* CO2 12* -- -- < > 25 27 23 BUN >120* < > -- < > 74* 61* 46* CREATININE -- < > -- < > 3.98* 3.14* 1.93* CALCIUM 8.6 -- -- < > 8.9 9.1 8.7 MG 3.2* -- -- -- -- -- -- PHOS -- -- 7.8* -- -- -- -- LABALBU 4.1 -- -- -- -- -- -- < > = values in this interval not displayed. Coags: No results for input(s): PROTIME, INR, PTT in the last 72 hours. LFT: Recent Labs 09/24/231713 TBIL 0.7 ALKPHOS 57 AST 21 ALT 14 VB.46 / 27 / 63 / base level -3.70 (09/23 2244) ABG: Recent Labs 09/24/232244 BEART -3.70* VBGs: Recent Labs 09/24/232244 PHVENOUS 7.46* [id number] 91* Inflammatory Markers: No results for input(s): SEDRATE, CRP in the last 72 hours. Pro-Claus: No results for input(s): PROCAL in the last 72 hours. Lactic Acid: Recent Labs 09/24/23 1714 LACTICACID 1.6 Cardiac Markers: Recent Labs 09/24/23 1714 09/24/23 2102 09/25/23 0626 TROPONINI 0.123* 0.132* 0.065* Hemoglobin A1c: Recent Labs 09/25/23 0626 HGBA1C 5.7* Thyroid Function: Recent Labs 09/25/23 0626 TSH 2.25 No results for input(s): SPEP, UPEP in the last 72 hours. No results for input(s): LDH, FIBRINOGEN in the last 72 hours. UA: Recent Labs 09/24/23 1756 COLOR Yellow CLARITYU Clear GLUCOSEU Negative BILIRUBINUR Negative KETONES Trace* LABSPEC 1.008 PHUR 5.0 PROTEINUA Negative UROBILINOGEN 0.2 NITRITE Negative LEUKESTER Trace* WBCU 0 - 3 RBCU 0 - 2 BACTERIA None Seen LABCAST <=10 BGLs: No results for input(s): GLUCOSEPOC in the last 72 hours. Urinalysis: Recent Labs 09/24/23 1756 GLUCOSEU Negative BILIRUBINUR Negative KETONES Trace* LABSPEC 1.008 BLOODU 3+* RBCU 0 - 2 PROTEINUA Negative WBCU 0 - 3 NITRITE Negative LEUKESTER Trace* BACTERIA None Seen SQUAMOUSUA None Seen Microbiology - MRSA swab: pending Imaging CT AP WITHOUT CONTRAST (Outside Hospital), 09/24/2023 Markedly distended urinary bladder. No stones or masses identified. The prostate gland is mildly enlarged. Dilatation of the renal collecting systems bilaterally, predominantly involving the renal pelves. There is infiltration in fluid seen surrounding the left kidney. This may represent calyceal/forniceal rupture. No radiopaque stone is identified. A radiolucent stone or proximal ureteral mass should be considered. Dilatation of the collecting systems may also be a sequelae of the distended urinary bladder. Moderate left pleural effusion and left basilar infiltrate which may represent atelectasis or pneumonia. Colonic diverticuloses without evidence of acute diverticulitis. A postcontrast CT scan or MRI of the abdomen and pelvis is recommended. Indeterminate 2 cm hypodensity in the superior pole of the left kidney. Cardiology Transthoracic echo (TTE) complete w/Doppler W/CF no contrast, 09/25/2023 0815: Pericardium: Image quality is suboptima. There did not appear to be any significant pericardial effusion. There was a left pleural effusion visualized. Left Ventricle: The left ventricular cavity was normal in size. Left ventricular systolic function was normal with an ejection fraction of 55-60% by visual estimate. The study is not technically sufficient to allow evaluation of left ventricular diastolic function. Although no diagnostic regional wall motion abnormality was identified, this possibility cannot be completely excluded on the basis of this study. Right Ventricle: The right ventricular cavity was normal in size. Right ventricular systolic function was normal. Medications - Scheduled finasteride, 5 mg, DAILY heparin, 5,000 Units, Q8H senna, 2 Tablet, QHS TAMSulosin, 0.4 mg, DAILY - Continuous dextrose 5%, Last Rate: 200 mL/hr at 09/25/23 1512 - PRN acetaminophen, 650 mg, Q6H PRN bisacodyL, 10 mg, Daily PRN lidocaine, 2 mg, PRN polyethylene glycol 3350, 17 g, Daily PRN ramelteon, 8 mg, AT BEDTIME PRN Assessment: 78 y.o. male with a PMH significant for limited medical care who presented with CC of postrenal obstruction and was admitted to MICU for electrolyte monitoring iso rapidly overcorrecting sodium levels from 116 to 131 in 22 hrs. Sodium now 125, which is appropriate for increase up to 10 mEq in the 1st 24 hours. Will give DDAVP and monitor lytes closely with goal of increase 8 in next 24 hours (Na 134 tomorrow). Plan: Renal Overcorrection of hyponatremia s/p DDAVP x2 and IV fluids - Target increase of 10 / 1st 24 hours (Na 126 now) and 8 / each following 24 hours (Na 134 tomorrow) - Lytes q2h - Discontinue D5W 200 ml/hr - DDAVP 2 mcg IV q8h - Monitor BMP q4h - Lopez in - Strict I/O - Fluid restrict to 1500 cc/day Nephrogenic diabetes insipidus Post-obstructive diuresis with 14 L UOP since initial presentation - Monitor I/Os, BMPs as above - Monitor BP, replete fluids as needed for soft pressures Anion gap metabolic acidosis with respiratory alkalosis, resolved Acute kidney injury, improving Hyperkalemia, resolved - Monitor BMP Cardiac Atrial flutter with variable ventricular response - On telemetry - Anticoagulation with heparin 5000 units SC q8h Troponinemia, downtrending, without ischemic changes on EKG, TTE LVEF 55-60%. Possibly type II NSTEMI - Repeat EKG if clinical concerns Pulmonary No acute concerns GI / Nutrition Last BM: Diet: DIET NPO TIME SPECIFIED with Exceptions - Allow; meds No acute concerns - Bowel reg: Miralax prn, Senna at bedtime Infectious Disease No acute concerns Hematologic Anemia - Follow CBC - DVT ppx: heparin 5000 units SC Neuro / Psych No acute concerns - Monitor mental status Endocrine No acute concerns Genitourinary C/f benign prostatic hyperplasia - Tamsulosin 0.4 mg daily - Finasteride 5 mg daily Musculoskeletal: No acute concerns Prophylaxis - DVT: heparin - GI: not indicated Communication - Code Status: Full Code - Will update family later today. - Critical Care Daily Checklist: Completed - Prognosis: Guarded Kiana Campo MD 09/25/23 15:52 Obstetrics & Gynecology, PGY-1 Pager #[phone] Attending attestation statement: I saw and examined the patient with the resident/medical student and agree with the findings and plans as documented, and as amended in blue. Clinical Condition: Lisandra Hollis is a critically ill 78 y.o. male. Over the past 24 hours, there has been a high probability of sudden, clinically significant or life threatening deterioration in the patient???s condition, which include the following diagnoses which I have managed: 1. Acute bilateral obstructive uropathy 2. Acute renal failure, unspecified acute renal failure type (HCC-CMS) 3. Hyponatremia 4. NSTEMI (non-ST elevated myocardial infarction) (HCC-CMS) 5. Urinary retention Critical Care time was provided in the form of interventions to treat and prevent further life threatening deterioration of the patient???s condition including: fluid and electrolyte management, and high complexity decision making regarding need for additional imaging studies and / or interventional radiology interventions My bedside involvement was required to monitor and direct the critical care that has been provided.Exclusive of procedures, my critical care time is 46 minutes. Selvin Ramirez MD Pulmonary & Critical Care Medicine 09/26/2023 * Jessica Gallegos MD - 09/24/2023 8212 EDT Images from the original note were not included. Hospital Medicine Admission History & Physical Service Date: 09/24/2023 Admit Date: 09/24/23 Primary Care Provider: Provider None Chief Complaint: AMS/Urinary retention HPI Lisandra Hollis is a 78 y.o. male without significant past medical history that presents with electrolyte derangements in the setting of possible postrenal obstruction. Upon interview, Eric appears to be confused. He stating that he is attributed much of his problems to Lyme disease. He also states that he had pain in his abdomen/groin for a few days. Comments that he had some degree of left low back pain for years. His first thought was that this was due to him going from drinking only coffee to no coffee at all. He does not have any current chest pain or shortness of breath but does note he has hiccups. 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 Initial lab data at [facility] at 11:12 AM included a sodium of 116, K 6.9, anion gap 26, BUN 170, creatinine 19.9. Lipase 107. CT scan of the abdomen showed a markedly distended bladder with possible calyceal rupture versus ureteral obstruction of the left kidney. A Lopez was placed and he was transferred to [facility]. Upon arrival to [facility], initial sodium was 122, K5.4, anion gap 25, BUN 135, creatinine 12.34. 2100 showed a sodium of 128. A D5 infusion was started within the emergency department. Also received calcium gluconate upon arrival. 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 Denies metallic taste and denies confusion. Has not sought medical care in the past but tells me it would take 5 minutes to list all the herbs/vitamins he gets shipped to him. Did take amoxicillin recently for a tooth issue but cannot tell me details. [facility] records reviewed from scans. Per nursing the all the urine output here does not include the 3 liters he put out prior to transfer. He received NS, D5W, bicarb, and furosemide prior to transfer. Review of Systems A complete 10 point ROS was performed and pertinent positive and negative findings listed in HPI, otherwise negative. No past medical history on file. No past surgical history on file. Social History Tobacco Use Smoking status: Not on file Smokeless tobacco: Not on file Substance Use Topics Alcohol use: Not on file Family History Problem Relation Age of Onset Dementia Father No current outpatient medications on file. No Known Allergies Objective Vitals Temp: [36.6 ??C (97.9 ??F)] , Heart Rate: [97 BPM-116 BPM] , Pulse: [109-120] , Resp: [13-22] , BP:(96-158)/(56-83) , SpO2: [94 %-98 %] , Numeric Pain Level (Scale 1-10): 0 Weight: Weight : 85.7 kg (189 lb) Body mass index is 26.36 kg/m??. Physical Exam General: Confused, no acute distress, appears overall volume down. HEENT: Head: Normocephalic, atraumatic, no scars or bumps, wearing glasses Eyes: no icterus, no conjunctival injection Lungs: Clear to auscultation bilaterally, no wheezes/rales(crackles)/rhonchi CV: no MRG, no JVD, no leg edema GI: No guarding : lopez present clear yellow urine Skin: Warm and dry, no rashes, bruises or masses MSK: Full ROM of all joints M48/M60 TANK DRIVER: speech clear and fluent, intact recent and remote memory, follows commands appropriately; appropriate use of language. Symmetric strength ECG Labs I have personally reviewed Recent Labs 09/24/23 1713 WBC 7.76 RBC 4.23* HCT 35.6* MCV 84 PLT 318 NEUTROABS 6.36 Recent Labs 09/24/23 1714 09/24/23 1914 09/24/23 210 NA 122* -- 128* K 5.4* -- -- CL 85* -- -- CO2 12* -- -- BUN >120* 135* -- CREATININE -- 12.37* -- CALCIUM 8.6 -- -- MG 3.2* -- -- PHOS -- -- 7.8* LABALBU 4.1 -- -- Recent Labs 09/24/23 2102 TROPONINI 0.132* Recent Labs 09/24/23 2245 BEART -3.70* Recent Labs 09/24/23 1714 TBIL 0.7 ALKPHOS 57 AST 21 ALT 14 Recent Labs 09/24/23 1756 COLOR Yellow CLARITYU Clear GLUCOSEU Negative BILIRUBINUR Negative KETONES Trace* LABSPEC 1.008 PHUR 5.0 PROTEINUA Negative UROBILINOGEN 0.2 NITRITE Negative LEUKESTER Trace* WBCU 0 - 3 RBCU 0 - 2 BACTERIA None Seen LABCAST <=[address] from 09/23 showing distended bladder Assessment Lisandra Hollis is a 78 y.o. male without significant past medical history that presents with electrolyte derangements in the setting of possible postrenal obstruction. Plan MANUELITO: Markedly dilated bladder on outlying facility CT likely causing the calyceal rupture of the left kidney versus proximal ureteral mass. Potentially in the setting of BPH. Post obstructive diuresis - already at >11 liters UOP -Increase D5W infusion to 500 mL/h for 4 hours -Lopez in place -strict I/Os -BMP q4h -DDAVP 1mcg x 1 (can increase 1 mcg every 8 hours as needed) with overcorrection of sodium, if using additional doses would make strict NPO with risk of water ingestion causing profound hyponatremia Will need aggressive ongoing monitoring with electrolyte derangement risk in setting of high urine output Per ED discussion with urology, once renal function improves could consider CT with contrast for calyceal rupture - on my exam he has no CVA tenderness/flank pain, reassess in the morning and obtain formal urology consult at discretion of provider Hyponatremia: Initial sodium 116. Unclear if acute versus chronic, however given rapid correction should continue to monitor closely. Must assume chronic with no comparison, denies etoh use. -BMP q4h -Continue D5W infusion at this time. Rate dependent on sodium trend -Attempt goal sodium of 124 until 1200 09/25/2023. No more than 8mEq Increased D5W rate and gave DDAVP with rapid overcorrection presumably from autodiuresis but did receive fluids and diuretics prior to transfer Hyperkalemia: Likely to be corrected with fluid infusion. -BMP q4 -Can consider insulin infusion, calcium gluconate, Sodium zirconium cyclosilicate AGMA: 25 on admission. Likely in the setting of hyperuricemia from MANUELITO -BMP q4h Atrial flutter with variable ventricular response: ECG without ischemic changes asymptomatic intermittently in RVR Troponinemia: Potentially type II NSTEMI in the setting of tachycardia from electrolyte derangements and volume depletion. -tele -am trop VTE Prophylaxis: Pharmacologic Prophylaxis: Heparin 5000 units SQ Tid hold for now until repeat CBCwith hemolysis on [facility] lab (Hgb 13 prior to transfer) Code: Full Code Discharge Plan: Home or self care Consults: None Admission status Inpatient admission due to anticipated duration of hospitalization is two midnights or greater due to MANUELITO. LOREE MILLER DO 09/25/2023 1:31 ATTENDING ATTESTATION Date of service: 09/24/2023 I have interviewed and examined the patient. I personally reviewed laboratories studies, radiographic study reports, and prior records. I discussed the case with Dr. Lainez (triage hospitalist), Dr. Salvador (ED) and Dr. Miller (medicine resident). I agree with the findings and plan of care as documented in the note above except as noted with changes in blue. Anticipate require inpatient length of stay greater than two midnights. EKG from [facility] with conduction delay improved here. Jessica Gallegos MD Hospitalist 09/25/2023 7:15 documented in this encounter Consult Notes * Yara Marie PA-C - 09/25/2023 1221 EDT Images from the original note were not included. [facility] Urologic Surgery Inpatient Consult Note Admit Date: 09/24/2023 Date of Service: 09/25/2023 PCP: Provider None Requesting Attending: Donna Valencia DO Specialty Completing Consult: Urologic Surgery Consulting Attending: Dr. Horvath Admission Reason: Chief Complaint Patient presents with Acute Renal Failure Pt BIBEMS as transfer from [facility] after 10 days of groin and abdominal pain, greater L side than R side. Pt practices hollistic care and has not seen MD for this prior to now. Dilated bladder, urinary retention for 5 days. Pt has possible left kidney rupture vs uretal mass on CT at OSH. Pt A+Ox3, oc cassionally confused. Na 116 and K 6.9. Given hyperkalemia tx at [facility]. Lopez placed, 3.5 L dark bloody urine out initially. Over 5 L UOP since lopez placed. Has hiccups, no other complaint sat this time. Reason for Consult: Evaluation of acute urinary retention, forniceal rupture, ?renal mass HPI: Lisandra is a 78 y.o. male with no PMHx (no previous interaction w/ healthcare) who presented to OSH ED on 09/24/23 for 11 day hx left abdominal pain and difficulty voiding. He was found to have acute renal failure and acute urinary retention. A lopez catheter drained 3.5L urine and he was transferredfor post obstructive diuresis w/ hyperkalemia and hyponatremia. CT AP w/out contrast demonstrated markedly distended bladder, bilateral hydro, left perinephric/ sarah-psoas fluid, and possible left renal mass. 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 He has been struggling w/ difficulty voiding for years, but says he noticed a significant decline over the last 2 weeks w/ hesitancy, urgency, and frequency. He has only been able to dribble out some urine. He r ecently quit drinking coffee to see if it would help. Prior to this he was drinking multiple cups aday. He has also had intermittent bilateral flank pain but during this same time period noticed worsening left sided flank pain. He also has not had a bowel movement in 10 days which has curbed his appetite and limited PO intake. He denies fevers or chills. He has never seen a urologist. He denies hx of gross hematuria or passage of kidney stones. 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 No past medical history on file. No past surgical history on file. Social History Tobacco Use Smoking status: Not on file Smokeless tobacco: Not on file Substance Use Topics Alcohol use: Not on file Family History Problem Relation Age of Onset Dementia Father Current Facility-Administered Medications Medication Route Frequency acetaminophen (TYLENOL) tablet 650 mg oral Q6H PRN bisacodyL (DULCOLAX) suppository 10 mg rectal Daily PRN desmopressin (DDAVP) 1 mcg in sodium chloride (NS) 0.9 % 50 mL IVPB intravenous Now dextrose 5 % (D5W) infusion intravenous CONTINUOUS finasteride (PROSCAR) tablet 5 mg oral DAILY heparin injection 5,000 Units subcutaneous Q8H lidocaine (PF) 10 mg/mL (1 %) injection 2 mg intradermal PRN polyethylene glycol 3350 (MIRALAX) packet 17 g oral Daily PRN ramelteon (ROZEREM) tablet 8 mg oral AT BEDTIME PRN senna (SENOKOT) tablet 2 Tablet oral QHS TAMSulosin (FLOMAX) capsule 0.4 mg oral DAILY No Known Allergies Review of Systems: A ten point ROS was performed and was negative except for pertinent positives in the HPI. Objective/Physical Exam: Vital Signs: Patient Vitals for the past 8 hrs: BP Pulse Heart Rate Resp Temp SpO2 O2 Device 09/25/23 0800 97/75 -- 102 BPM -- 36.8 ??C (98.2 ??F) 95 % None 09/25/23 0650 (!) 149/78 92 93 BPM (!) 80 36.5 ??C (97.7 ??F) 95 % None 09/25/23 0500 118/84 -- 95 BPM 13 -- 92 % None Weight: Weight : 85.7 kg (189 lb) Height: Height: 180.3 cm (71) I and O: I&O By Type - 3 Shifts Including Current In: 240 [P.O.:240] Out: 9675 [Urine:9675] Gen: Alert, in no distress, hiccupping Skin: Temperature normal, no rash or lesions Pulm: Normal effort, unlabored on room air Abd: Soft, non distended, nontender to palpation Back: Left CVA tenderness : Lopez draining clear yellow urine Musculoskeletal: No gross motor deficits Neuro: Coherent and fluent speech Data Review: Labs: CBC: Lab Results Component Value Date WBC 8.08 09/25/2023 RBC 3.92 (L) 09/25/2023 HGB 12.4 (L) 09/25/2023 HCT 33.5 (L) 09/25/2023 MCV 86 09/25/2023 MCH 31.6 09/25/2023 MCHC 37.0 (H) 09/25/2023 PLT 372 09/25/2023 NEUTROABS 6.36 09/24/2023 BMP: Lab Results Component Value Date NA 131 (L) 09/25/2023 K 4.7 09/25/2023 CL 92 (L) 09/25/2023 CO2 27 09/25/2023 BUN 61 (H) 09/25/2023 CREATININE 3.14 (H) 09/25/2023 CALCIUM 9.1 09/25/2023 MG 3.2 (H) 09/24/2023 PHOS 7.8 (H) 09/24/2023 LABALBU 4.1 09/24/2023 U/A: Lab Results Component Value Date CLARITYU Clear 09/24/2023 LABSPEC 1.008 09/24/2023 PHUR 5.0 09/24/2023 GLUCOSEU Negative 09/24/2023 BILIRUBINUR Negative 09/24/2023 KETONES Trace (A) 09/24/2023 BLOODU 3+ (A) 09/24/2023 Imaging: CT AP WO Contrast 09/24/23 Impression: Lisandra is a 78 y.o. male with no documented PMHx who presented to an OSH ED yesterday w/ abdominal pain and difficulty voiding. He was found to have acute renal failure w/ electrolyte derangements. CT AP demonstrated a markedly distended bladder w/ bilateral hydro, left possible forniceal rupture w/ perirenal fluid, and concern for left upper pole renal mass (not well adjudicated on noncontrast scan). Lopez catheter placement drained 3.5L urine and patient is now being managed for postobstructive diuresis. There is no evidence of infection in urine and patient's kidney function israpidly improving w/ bladder decompression. He will need outpatient follow up for renal function, hydro, and will need further workup for ?renal mass. No further intervention necessary at this time. Suggestions/Recommendations: Continue lopez catheter. Urology will arrange voiding trial in 1 week. If patient is still admitted, can have TOV in house Recommend CT A/P Renal Mass Protocol in 1 month Agree w/ Flomax and Finasteride Urology to sign off at this time. Please page urology service pager, [phone], with additional questions or concerns Patient discussed with Dr. Horvath , urology attending Yara Marie PA-C 09/25/2023 12:21 Associated attestation - Ricardo Wright MD [facility] - 09/26/2023 1436 EDT Attestation statement: I discussed the patient with the PA at the time of the visit. I agree with the findings and the plan of care documented in the resident's/fellow's note. documented in this encounter ED Notes * Celia Aiken - 09/24/20238 EDT Celia Pisano, notified Dr. Salvador of Troponin 0.132 on 09/24/2023 at 21:38. * Umm Sigala RN - 09/24/2023 2113 EDT Blood drawn via saline lock per protocol, green tube(s) sent to lab per order. * Heidi Fraga - 09/24/2023 1853 EDT Heidi Pisano, notified Dr. SALVADOR of SOD 122 on 09/24/2023 at 18:53. * Heidi Fraga - 09/24/2023 1825 EDT Heidi Pisano, notified Dr. SALVADOR of TROPONIN 0.123 on 09/24/2023 at 18:25. * Chayo Ferrer, GRIFFIN - 09/24/2023 1716 EDT Blood drawn via saline lock per protocol, green and purple tube(s) sent to lab per order. IV slow to draw, appropriate amount wasted prior to draw * Chayo Ferrer RN - 09/24/2023 1716 EDT 12 Lead EKG Performed by CHAYO FERRER RN and shown to Latisha Ruvalcaba MD * Juan Salvador MD MPH - 09/24/2023 1613 EDT ED Visit MDM Patient evaluated at bedside. In summary, 78 y.o. male with no recorded PMH presenting to the ED asa transfer from [facility] for new renal failure. At [facility], patient had potassium to 6.9 and sodium to 116and CT notable for possible calyceal rupture of left kidney versus proximal ureter mass. Patient initially had 3.5 L of dark bloody urine collected from lopez placed at [facility]. Physical exam pertinent for well-appearing male in no acute distress. Stable vital signs, afebrile.Tachycardic with an irregularly irregular rhythm, normal heart sounds. Normal work of breathing, lungs clear to auscultation bilaterally, normoxic on room air. Abdomen soft, mildly tender diffusely with no rebound, guarding, or peritoneal signs. No CVA tenderness bilaterally. Lopez in place, with normal external genitalia and with clear yellow urine draining. No lateralizing signs or focal neurological deficits. I considered a broad differential for this patient, including but not limited to obstructive uropathy, postobstructive diuresis, acute renal failure, ATN, urinary tract infection, BPH, malignancy, hyperkalemia, and additional possible pathology. To evaluate for these, will order CBC, CMP, troponin,magnesium, TSH, lactic acid, urinalysis. We are actively pursuing obtaining imaging or at least theCT report from [facility], but if we are unable to obtain this he may benefit from a repeat CT abdomen pelvis to assess for potential obstruction versus malignancy. I am certainly concerned from EKG initially for peaked T waves in the setting of known hyperkalemia prior to arrival, will give him 2 g calcium gluconate at this time. Will continue to monitor in the ED and reevaluate after testing returns or sooner if needed. Relevant Data as of 09/24/23 2333 SatSep 24, 2023 1630 Reviewed intake documentation, transferred here for new renal failure, generally does not see doctors, sodium 116, potassium 6.9, creatinine of 20, and urinary obstruction [LW] 1716 EKG 12 lead EKG on my independent interpretation demonstrates irregularly irregular rhythm with a ventricular rate of 97, normal axis, narrow QRS, peaked T waves, no acute ST-T wave changes concerning for ischemia. QTc 400 [LW] 1748 Physical pertinent for well-appearing male in no acute distress. Stable vital signs, afebrile.Tachycardic with an irregularly irregular rhythm, normal heart sounds. Normal work of breathing, lungs clear to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 AMB CONS/FOLLOW UP PRIMARY CARE PHYSICIAN - [facility] Outpatient Referral Routine/Next Available Acute bilateral obstructive uropathy Acute renal failure, unspecified acute renal failure type (HCC-CMS) Hyponatremia Urinary retention Typical atrial flutter (HCC-CMS) MANUELITO (acute kidney injury) (HCC-CMS) Expected: 10/07/2023 (Approximate), Expires: 09/29/2024 AMB CONS/FOLLOW UP CARDIAC ELECTROPHYSIOLOGY Outpatient Referral Routine/Next Available Typical atrial flutter (HCC-CMS) Expected: 10/07/2023 (Approximate), Expires: 09/29/2024 AMB CONS/FOLLOW UP [facility] Outpatient Referral Routine/Next Available Acute bilateral obstructive uropathy Acute renal failure, unspecified acute renal failure type (HCC-CMS) Expected: 10/07/2023 (Approximate), Expires: 09/29/2024 documented as of this encounter Procedures Procedure [...] - UNFRACTIONATED HEPARIN STAT 09/30/2023 10:26 EDT COMPLETE BLOOD COUNT Routine 09/30/2023 6:15 EDT BASIC METABOLIC PANEL (BMP) Timed 09/30/2023 6:15 EDT EKG 12-LEAD Routine 09/29/2023 19:02 EDT COMPLETE BLOOD COUNT Routine 09/29/2023 5:50 EDT BASIC METABOLIC PANEL (BMP) Timed 09/29/2023 5:49 EDT ECG REPORT - SCANNED 09/28/2023 14:34 EDT EKG 12-LEAD STAT 09/28/2023 11:46 EDT COMPLETE BLOOD COUNT Routine 09/28/2023 5:42 EDT BASIC METABOLIC PANEL (BMP) Timed 09/28/2023 5:42 EDT BASIC METABOLIC PANEL (BMP) [...] METABOLIC PANEL (BMP) Timed 09/26/2023 5:44 EDT COMPLETE BLOOD COUNT Routine 09/26/2023 2:10 EDT BASIC METABOLIC PANEL (BMP) Timed 09/26/2023 2:10 EDT BASIC METABOLIC PANEL (BMP) [...] ECG REPORT - SCANNED 09/25/2023 9:56 EDT TROPONIN I Routine 09/25/2023 6:26 EDT COMPLETE BLOOD COUNT Routine 09/25/2023 6:26 EDT TSH Add-On 09/25/2023 6:26 EDT HEMOGLOBIN A1C Add-On 09/25/2023 6:26 EDT LIPID PROFILE (INCLUDES CHOLESTEROL, TRIGLYCERIDES, HDL, LDL) Add-On 09/25/2023 6:26 EDT BASIC METABOLIC PANEL (BMP) Routine 09/25/2023 6:26 EDT BASIC METABOLIC PANEL (BMP) STAT 09/25/2023 1:44 EDT BLOOD GASES, VENOUS STAT 09/24/2023 2 2:45 EDT TROPONIN I STAT 09/24/2023 21:02 EDT SODIUM STAT Add-on 09/24/2023 21:02 EDT PHOSPHORUS Add-On 09/24/2023 21:02 EDT BUN STAT 09/24/2023 19:14 EDT CREATININE STAT 09/24/2023 19:[address] OUTSIDE IMAGES ABDOMEN PELVIS STAT 09/24/2023 18:22 EDT URINE CHEMICAL (DIP) & SEDIMENT (MICRO) WITH REFLEX TO CULTURE STAT 09/24/2023 17:56 EDT LACTIC ACID WITH REFLEX - USE FOR INITIAL SEPSIS EVALUATION STAT 09/24/2023 17:14 EDT TROPONIN I STAT 09/24/2023 17:14 EDT TSH STAT 09/24/2023 17:14 EDT MAGNESIUM STAT 09/24/2023 17:14 EDT COMPREHENSIVE METABOLIC PANEL (CMP) STAT 09/24/2023 17:14 EDT MANUAL HEMATOCRIT Today 09/24/2023 17: 13 EDT COMPLETE BLOOD COUNT AND DIFFERENTIAL STAT 09/24/2023 17:13 EDT EKG 12-LEAD STAT 09/24/2023 17:06 EDT EKG 12-LEAD STAT 09/24/2023 16:53 EDT documented in this encounter Results * ECG REPORT - SCANNED (10/03/2023 15:15 EDT) 10/03/2023 15:1 5 EDT Scan 2 Liquor Blender PROCEDURE/MINOR DANIEL GICAL ORDERABLES * ECG REPORT - SCANNED (10/03/2023 14:44 EDT) 10/03/2023 14:4 4 EDT Scan 2 Liquor Blender PROCEDURE/MINOR DANIEL GICAL ORDERABLES * ECG REPORT - SCANNED (10/03/2023 13:34 EDT) 10/03/2023 13:3 4 EDT Scan 2 Liquor Blender PROCEDURE/MINOR DANIEL GICAL ORDERABLES * ECG REPORT - SCANNED (10/02/2023 22:21 EDT) 10/02/2023 22:2 1 EDT Scan 2 Liquor Blender PROCEDURE/MINOR DANIEL GICAL ORDERABLES * ECG REPORT - SCANNED (10/02/2023 13:45 EDT) 10/02/2023 13:4 5 EDT Scan 2 Liquor Blender PROCEDURE/MINOR DANIEL GICAL ORDERABLES * ECG REPORT - SCANNED (09/30/2023 17:45 EDT) 09/30/2023 17:4 5 EDT Scan 2 Liquor Blender PROCEDURE/MINOR DANIEL GICAL ORDERABLES * HEPARIN LEVEL - UNFRACTIONATED HEPARIN (09/30/2023 10:26 EDT) Heparin Level-UFH 0.12 Therapeutic Range: 0.30 - 0.70 IU/mL 09/30/2023 11:00 EDT [facility] Blood VENOUS BLOOD / Unknown Venipuncture / Unknown 09/30/2023 10:26 EDT 09/30/2023 10:34 EDT Narrative [facility] - 09/30/2023 11:00 EDT Sample retested, result confirmed Lalo Ramires MD HEMATOLOGY & PF4 O RDERABLES [facility] [address] [phone] * (ABNORMAL) BASIC METABOLIC PANEL (BMP) (09/30/2023 6:15 EDT) Sodium 135(L) 136 - 145 mmol/L 09/30/2023 7:16 [facility] Potassium 4.8 3.5 - 5.0 mmol/L 09/30/2023 7:16 [facility] Chloride 105 96 - 110 mmol/L 09/30/2023 7:16 [facility] CO2 Total 21(L) 22 - 32 mmol/L 09/30/2023 7:16 [facility] Anion Gap 9 5 - 14 mmol/L 09/30/2023 7:16 [facility] Glucose 99 70 - 99 mg/dl 09/30/2023 7:16 [facility] Calcium 8.3(L) 8.5 - 10.5 mg/dL 09/30/2023 7:16 [facility] BUN 14 10 - 26 mg/dL 09/30/2023 7:16 [facility] Creatinine 0.68 0.66 - 1.25 mg/dL 09/30/2023 7:16 [facility] eGFR 95 >60 mL/min/1.73 m2 09/30/2023 7:16 [facility] Blood VENOUS BLOOD / Unknown Venipuncture / Unknown 09/30/2023 6:15 EDT 09/30/2023 6:24 EDT Donna J Valencia DO CHEMISTRY & BLOOD GAS ORDERABLES Performing Organization Address City/[facility]/ZIP Co de Phone Number [facility] [address] [place], [place] [phone] * (ABNORMAL) COMPLETE BLOOD COUNT (09/30/2023 6:15 EDT) WBC 9.06 4.00 - 10.40 K/cmm 09/30/2023 6:29 EDT [facility] RBC 3.70(L) 4.36 - 5.78 M/cmm 09/30/2023 6:29 EDT [facility] Hemoglobin 11.7(L) 13.8 - 17.3 g/dL 09/30/2023 6:29 EDT [facility] HCT 34.0(L) 39.5 - 50.2 % 09/30/2023 6:29 EDT [facility] MCV 92 81 - 95 fL 09/30/2023 6:29 EDT [facility] MCH 31.6 27.6 - 33.0 pg 09/30/2023 6:29 EDT [facility] MCHC 34.4 32.8 - 36.4 g/dL 09/30/2023 6:29 EDT [facility] RDW-CV 11.9 <14.2 % 09/30/2023 6:29 EDT [facility] RDW-SD 39.9 <46.0 fl 09/30/2023 6:29 EDT [facility] PLT 282 141 - 377 K/cmm 09/30/2023 6:29 EDT [facility] MPV 8.9(L) 9.5 - 12.7 fL 09/30/2023 6:29 EDT [facility] Blood VENOUS BLOOD / Unknown Venipuncture / Unknown 09/30/2023 6:15 EDT 09/30/2023 6:21 EDT Loree Miller DO HEMATOLOGY & PF4 ORD ERABLES [facility] [address] [place] [id number] * EKG 12-LEAD (09/29/2023 19:02 EDT) 09/29/2023 19:0 2 EDT Narrative [facility] - 10/03/2023 15:01 EDT ? [facility] ? Test Date: ?2023-09-29 Pat Name: ? LISANDRA HOLLIS ? Department: ?? Subha Naik ? Room: ? M626 Gender: ? Male ? Bid Writer: ?? [id number] : ?1945 ? Requested By: RUPESH Diaz Order Number: [id number] ? Reading MD: ?? CATRACHITO CEDILLOATING MD ? Measurements Intervals ?[place] ? Rate: ? 67 ? P: ?0 MN: ? 0 ?QRS: ?45 QRSD: ? 92 [...] Note Catrachito Gray MD - 10/03/2023 [facility] Test Date: 2023-09-29 Pat Name: LISANDRA TELMA Department: [place] [address] Room: [facility] Gender: Male Bid Writer: [id number] : 1945 Requested By: RUPESH Diaz Order Number: [id number] Reading MD: CATRACHITO LORD Measurements Intervals [place] Rate: 67 P: 0 MN: 0 QRS: 45 QRSD: 92 T: 32 QT: 367 QTc: 389 Interpretive Statements ATRIAL FLUTTER/TACHYCARDIA ABNORMAL RHYTHM ECG Compared to ECG 09/28/2023 11:46:59 No significant change I reviewed the tracing and have either agreed or edited the findings inthis report. Electronically Signed On 10-03-2023 15:01:04 EDT by CATRACHITO GRAY MD. Donna Valencia DO CARDIAC ECG ORDER ARDEN [facility] * (ABNORMAL) COMPLETE BLOOD COUNT (09/29/2023 5:50 EDT) WBC 8.55 4.00 - 10.40 K/cmm 09/29/2023 6:21 EDT [facility] RBC 3.92(L) 4.36 - 5.78 M/cmm 09/29/2023 6:21 EDT [facility] Hemoglobin 12.3(L) 13.8 - 17.3 g/dL 09/29/2023 6:21 T [facility] HCT 35.5(L) 39.5 - 50.2 % 09/29/2023 6:21 [facility] MCV 91 81 - 95 fL 09/29/2023 6:21 T [facility] MCH 31.4 27.6 - 33.0 pg 09/29/2023 6:21 T [facility] MCHC 34.6 32.8 - 36.4 g/dL 09/29/2023 6:21 [facility] RDW-CV 12.0 <14.2 % 09/29/2023 6:21 T [facility] RDW-SD 39.6 <46.0 fl 09/29/2023 6:21 T [facility] PLT 324 141 - 377 K/cmm 09/29/2023 6:21 T [facility] MPV 8.9(L) 9.5 - 12.7 fL 09/29/2023 6:21 [facility] Blood VENOUS BLOOD / Unknown Venipuncture / Unknown 09/29/2023 5:50 EDT 09/29/2023 6:10 EDT Loree Miller DO HEMATOLOGY & PF4 ORD ERABLES [facility] [address] [place] [address] * (ABNORMAL) BASIC METABOLIC PANEL (BMP) (09/29/2023 5:49 EDT) Sodium 136 136 - 145 mmol/L 09/29/2023 6:44 EDT [facility] Potassium 4.5 3.5 - 5.0 mmol/L 09/29/2023 6:44 EDT [facility] Chloride 103 96 - 110 mmol/L 09/29/2023 6:44 EDT [facility] CO2 Total 24 22 - 32 mmol/L 09/29/2023 6:44 T [facility] Anion Gap 9 5 - 14 mmol/L 09/29/2023 6:44 EDT [facility] Glucose 100(H) 70 - 99 mg/dl 09/29/2023 6:44 EDT [facility] Calcium 8.3(L) 8.5 - 10.5 mg/dL 09/29/2023 6:44 EDT [facility] BUN 15 10 - 26 mg/dL 09/29/2023 6:44 EDT [facility] Creatinine 0.82 0.66 - 1.25 mg/dL 09/29/2023 6:44 T [facility] eGFR 89 >60 mL/min/1.73 m2 09/29/2023 6:44 EDT [facility] Blood VENOUS BLOOD / Unknown Venipuncture / Unknown 09/29/2023 5:49 EDT 09/29/2023 6:10 EDT Donna Valencia DO CHEMISTRY & BLOOD GAS ORDERABLES [facility] [address] [place] [address] * ECG REPORT - SCANNED (09/28/2023 14:34 EDT) 09/28/2023 14:3 4 EDT Scan 2 Liquor Blender PROCEDURE/MINOR DANIEL GICAL ORDERABLES * EKG 12-LEAD (09/28/2023 11:46 EDT) 09/28/2023 11:4 6 EDT Narrative [facility] - 10/02/2023 13:36 EDT ? [facility] ? Test Date: ?2023-09-28 Pat Name: ? LISANDRA MARINOMIKE ? Department: ?? [address] ? Room: ? M626 Gender: ? Male ? Bid Writer: ?? [id number] : ?1945 ? Requested By: RUPESH Diaz Order Number: [id number] ? Natty MD: ?? JORDON GALLEGOS MD ? Measurements Intervals ?[place] ? Rate: ? 97 ? P: ?0 MN: ? 0 ?QRS: ?20 QRSD: ? 90 ? T: ?32 QT: ? 326 ? QTc: ?415 ? Interpretive Statements ATRIAL FLUTTER Compared to ECG 09/27/2023 10:14:33 No significant changes I reviewed the tracing and have either agreed or edited the findings in this report. Electronically Signed On 10-02-2023 13:36:25 EDT by JORDON GALLEGOS MD. Procedure Note Jordon Gallegos MD - 10/02/2023 [facility] Test Date: 2023-09-28 Pat Name: LISANDRA HOLLIS Department: [place] [address] Room: [facility] Gender: Male Bid Writer: [id number] : 1945 Requested By: RUPESH Diaz Order Number: [id number] Reading MD: JORDON GALLEGOS MD Measurements Intervals [place] Rate: 97 P: 0 MN: 0 QRS: 20 QRSD: 90 T: 32 QT: 326 QTc: 415 Interpretive Statements ATRIAL FLUTTER Compared to ECG 09/27/2023 10:14:33 No significant changes I reviewed the tracing and have either agreed or edited the findings inthis report. Electronically Signed On 10-02-2023 13:36:25 EDT by JORDON RYAN. Donna Valencia DO CARDIAC ECG ORDER ARDEN [facility] * (ABNORMAL) BASIC METABOLIC PANEL (BMP) (09/28/2023 5:42 EDT) Sodium 133(L) 136 - 145 mmol/L 09/28/2023 7:08 [facility] Potassium 4.7 3.5 - 5.0 mmol/L 09/28/2023 7:08 [facility] Chloride 99 96 - 110 mmol/L 09/28/2023 7:08 [facility] CO2 Total 26 22 - 32 mmol/L 09/28/2023 7:08 [facility] Anion Gap 8 5 - 14 mmol/L 09/28/2023 7:08 [facility] Glucose 106(H) 70 - 99 mg/dl 09/28/2023 7:08 [facility] Calcium 8.3(L) 8.5 - 10.5 mg/dL 09/28/2023 7:08 [facility] BUN 15 10 - 26 mg/dL 09/28/2023 7:08 [facility] Creatinine 0.74 0.66 - 1.25 mg/dL 09/28/2023 7:08 [facility] eGFR 92 >60 mL/min/1.73 m2 09/28/2023 7:08 [facility] Blood VENOUS BLOOD / Unknown Venipuncture / Unknown 09/28/2023 5:42 EDT 09/28/2023 6:31 EDT Donna Valencia DO CHEMISTRY & BLOOD GAS ORDERABLES [facility] [address] [place] [address] * (ABNORMAL) COMPLETE BLOOD COUNT (09/28/2023 5:42 EDT) WBC 8.06 4.00 - 10.40 K/cmm 09/28/2023 6:40 EDT [facility] RBC 3.88(L) 4.36 - 5.78 M/cmm 09/28/2023 6:40 EDT [facility] Hemoglobin 12.2(L) 13.8 - 17.3 g/dL 09/28/2023 6:40 T [facility] HCT 35.8(L) 39.5 - 50.2 % 09/28/2023 6:40 [facility] MCV 92 81 - 95 fL 09/28/2023 6:40 T [facility] MCH 31.4 27.6 - 33.0 pg 09/28/2023 6:40 T [facility] MCHC 34.1 32.8 - 36.4 g/dL 09/28/2023 6:40 [facility] RDW-CV 12.2 <14.2 % 09/28/2023 6:40 [facility] RDW-SD 41.5 <46.0 fl 09/28/2023 6:40 [facility] PLT 343 141 - 377 K/cmm 09/28/2023 6:40 [facility] MPV 9.1(L) 9.5 - 12.7 fL 09/28/2023 6:40 [facility] Blood VENOUS BLOOD / Unknown Venipuncture / Unknown 09/28/2023 5:42 EDT 09/28/2023 6:31 EDT Loree Miller DO HEMATOLOGY & PF4 ORD ERABLES [facility] [address] [place] [address] * (ABNORMAL) BASIC METABOLIC PANEL (BMP) (09/27/2023 21:52 EDT) Sodium 135(L) 136 - 145 mmol/L 09/27/2023 22:45 EDT [facility] Potassium 4.2 3.5 - 5.0 mmol/L 09/27/2023 22:45 EDT [facility] Chloride 102 96 - 110 mmol/L 09/27/2023 22:45 T [facility] CO2 Total 26 22 - 32 mmol/L 09/27/2023 22:45 [facility] Anion Gap 7 5 - 14 mmol/L 09/27/2023 22:45 [facility] Glucose 135(H) 70 - 99 mg/dl 09/27/2023 22:45 [facility] Calcium 8.3(L) 8.5 - 10.5 mg/dL 09/27/2023 22:45 [facility] BUN 16 10 - 26 mg/dL 09/27/2023 22:45 [facility] Creatinine 0.76 0.66 - 1.25 mg/dL 09/27/2023 22:45 [facility] eGFR 91 >60 mL/min/1.73 m2 09/27/2023 22:45 [facility] Blood VENOUS BLOOD / Unknown Venipuncture / Unknown 09/27/2023 21:52 EDT 09/27/2023 21:59 EDT Donna Valencia DO CHEMISTRY & BLOOD GAS ORDERABLES [facility] [address] [place] [address] * (ABNORMAL) BASIC METABOLIC PANEL (BMP) (09/27/2023 14:55 EDT) Sodium 134(L) 136 - 145 mmol/L 09/27/2023 15:48 T [facility] Potassium 5.1(H) 3.5 - 5.0 mmol/L 09/27/2023 15:48 [facility] Comment:Slight hemolysis steve ntified, interpret with caution as hemolysis will elevate potassium result. Chloride 103 96 - 110 mmol/L 09/27/2023 15:48 EDT [facility] CO2 Total 20(L) 22 - 32 mmol/L 09/27/2023 15:48 T [facility] Anion Gap 11 5 - 14 mmol/L 09/27/2023 15:48 EDT [facility] Glucose 127(H) 70 - 99 mg/dl 09/27/2023 15:48 EDT [facility] Calcium 8.5 8.5 - 10.5 mg/dL 09/27/2023 15:48 EDT [facility] BUN 21 10 - 26 mg/dL 09/27/2023 15:48 EDT [facility] Comment: Slight hemolysis identified, interpret with caution as results may be affected due to hemolysis. Creatinine 0.74 0.66 - 1.25 mg/dL 09/27/2023 15:48 EDT [facility] eGFR 92 >60 mL/min/1.7 3m2 09/27/2023 15:48 EDT [facility] Blood VENOUS BLOOD / Unknown Venipuncture / Unknown 09/27/2023 14:55 EDT 09/27/2023 15:25 EDT Donna Valencia DO CHEMISTRY & BLOOD GAS ORDERABLES Performing Organization Address [facility]/State/[facility] Co de Phone Number [facility] [address] [place] [address] * EKG 12-LEAD (09/27/2023 10:14 EDT) 09/27/2023 10:1 4 EDT Narrative [facility] EKG - 09/30/2023 17:23 EDT ? [facility] ? Test Date: ?2023-09-27 Pat Name: ? LISANDRA HOLLIS ? Department: ?? Subha Naik ? Room: ? M626 Gender: ? Male ? Bid Writer: ?? [id number] : ?1945 ? Requested By: RUPESH Diaz Order Number: [id number] ? Reading MD: ?? REGINALD DARIA MD ? Measurements Intervals ?[place] ? Rate: ? 107 ?P: ?0 MN: ? 0 ?QRS: ?33 QRSD: ? 90 ? T: ?15 QT: ? 321 ? QTc: ?428 ? Interpretive Statements ATRIAL FLUTTER/TACHYCARDIA WITH RAPID VENTRICULAR RESPONSE ABNORMAL RHYTHM ECG Compared to ECG 09/25/2023 20:25:23 T-wave abnormality no longer present I reviewed the tracing and have either agreed or edited the findings in this report. Electronically Signed On 09-30-2023 17:23:27 EDT by REGINALD MUÑOZ MD. Procedure Note Reginald Muñoz MD - 09/30/2023 [facility] Test Date: 2023-09-27 Pat Name: LISANDRA HOLLIS Department: [place] [address] Room: [facility] Gender: Male Bid Writer: [id number] : 1945 Requested By: RUPESH Diaz Order Number: [id number] Reading MD: REGINALD MUÑOZ MD Measurements Intervals [place] Rate: 107 P: 0 MN: 0 QRS: 33 QRSD: 90 T: 15 QT: 321 QTc: 428 Interpretive Statements ATRIAL FLUTTER/TACHYCARDIA WITH RAPID VENTRICULAR RESPONSE ABNORMAL RHYTHM ECG Compared to ECG 09/25/2023 20:25:23 T-wave abnormality no longer present I reviewed the tracing and have either agreed or edited the findings inthis report. Electronically Signed On 09-30-2023 17:23:27 EDT by REGINALD FONTENOT. Donna Valencia DO CARDIAC ECG ORDER ARDEN [facility] EKG * (ABNORMAL) BASIC METABOLIC PANEL (BMP) (09/27/2023 9:54 EDT) Sodium 132(L) 136 - 145 mmol/L 09/27/2023 10:35 EDT [facility] Potassium 4.3 3.5 - 5.0 mmol/L 09/27/2023 10:35 T [facility] Chloride 102 96 - 110 mmol/L 09/27/2023 10:35 T [facility] CO2 Total 22 22 - 32 mmol/L 09/27/2023 10:35 T [facility] Anion Gap 8 5 - 14 mmol/L 09/27/2023 10:35 [facility] Glucose 121(H) 70 - 99 mg/dl 09/27/2023 10:35 EDT [facility] Calcium 8.5 8.5 - 10.5 mg/dL 09/27/2023 10:35 T [facility] BUN 18 10 - 26 mg/dL 09/27/2023 10:35 [facility] Creatinine 0.76 0.66 - 1.25 mg/dL 09/27/2023 10:35 [facility] eGFR 91 >60 mL/min/1.73 m2 09/27/2023 10:35 [facility] Blood VENOUS BLOOD / Unknown Venipuncture / Unknown 09/27/2023 9:54 EDT 09/27/2023 10:01 EDT Donna Valencia DO CHEMISTRY & BLOOD GAS ORDERABLES Performing Organization Address City/State/[facility] Co de Phone Number [facility] [address], [place] [phone] * (ABNORMAL) COMPLETE BLOOD COUNT (09/27/2023 5:38 EDT) WBC 7.38 4.00 - 10.40 K/cmm 09/27/2023 5:50 [facility] RBC 3.80(L) 4.36 - 5.78 M/cmm 09/27/2023 5:50 [facility] Hemoglobin 11.9(L) 13.8 - 17.3 g/dL 09/27/2023 5:50 [facility] HCT 33.3(L) 39.5 - 50.2 % 09/27/2023 5:50 [facility] MCV 88 81 - 95 fL 09/27/2023 5:50 [facility] MCH 31.3 27.6 - 33.0 pg 09/27/2023 5:50 [facility] SERVICES MCHC 35.7 32.8 - 36.4 g/dL 09/27/2023 5:50 [facility] RDW-CV 12.0 <14.2 % 09/27/2023 5:50 [facility] RDW-SD 38.8 <46.0 fl 09/27/2023 5:50 [facility] PLT 326 141 - 377 K/cmm 09/27/2023 5:50 [facility] MPV 9.0(L) 9.5 - 12.7 fL 09/27/2023 5:50 [facility] Blood VENOUS BLOOD / Unknown Venipuncture / Unknown 09/27/2023 5:38 EDT 09/27/2023 5:43 EDT Loree Miller DO HEMATOLOGY & PF4 ORD ERABLES [facility] [address] [place] [address] * (ABNORMAL) BASIC METABOLIC PANEL (BMP) (09/27/2023 5:38 EDT) Sodium 131(L) 136 - 145 mmol/L 09/27/2023 6:23 [facility] Potassium 4.8 3.5 - 5.0 mmol/L 09/27/2023 6:23 [facility] Chloride 102 96 - 110 mmol/L 09/27/2023 6:23 [facility] CO2 Total 23 22 - 32 mmol/L 09/27/2023 6:23 [facility] Anion Gap 6 5 - 14 mmol/L 09/27/2023 6:23 [facility] Glucose 107(H) 70 - 99 mg/dl 09/27/2023 6:23 [facility] Calcium 8.3(L) 8.5 - 10.5 mg/dL 09/27/2023 6:23 [facility] BUN 19 10 - 26 mg/dL 09/27/2023 6:23 [facility] Creatinine 0.71 0.66 - 1.25 mg/dL 09/27/2023 6:23 [facility] eGFR 93 >60 mL/min/1.73 m2 09/27/2023 6:23 EDT [facility] Blood VENOUS BLOOD / Unknown Venipuncture / Unknown 09/27/2023 5:38 EDT 09/27/2023 5:43 EDT Donna Valencia DO CHEMISTRY & BLOOD GAS ORDERABLES [facility] [address], [place] [phone] * (ABNORMAL) BASIC METABOLIC PANEL (BMP) (09/27/2023 2:02 EDT) Sodium 130(L) 136 - 145 mmol/L 09/27/2023 2:34 [facility] Potassium 4.6 3.5 - 5.0 mmol/L 09/27/2023 2:34 [facility] Chloride 101 96 - 110 mmol/L 09/27/2023 2:34 [facility] CO2 Total 25 22 - 32 mmol/L 09/27/2023 2:34 [facility] Anion Gap 4(L) 5 - 14 mmol/L 09/27/2023 2:34 [facility] Glucose 130(H) 70 - 99 mg/dl 09/27/2023 2:34 [facility] Calcium 8.3(L) 8.5 - 10.5 mg/dL 09/27/2023 2:34 [facility] BUN 20 10 - 26 mg/dL 09/27/2023 2:34 [facility] Creatinine 0.76 0.66 - 1.25 mg/dL 09/27/2023 2:34 [facility] eGFR 91 >60 mL/min/1.73 m2 09/27/2023 2:34 [facility] Blood VENOUS BLOOD / Unknown Venipuncture / Unknown 09/27/2023 2:02 EDT 09/27/2023 2:06 EDT Donna Valencia DO CHEMISTRY & BLOOD GAS ORDERABLES Performing Organization Address City/[facility]/ZIP Co de Phone Number [facility] [address] [place] [address] * (ABNORMAL) BASIC METABOLIC PANEL (BMP) (09/26/2023 21:26 EDT) Sodium 131(L) 136 - 145 mmol/L 09/26/2023 22:12 T [facility] Potassium 4.4 3.5 - 5.0 mmol/L 09/26/2023 22:12 [facility] Chloride 98 96 - 110 mmol/L 09/26/2023 22:12 [facility] CO2 Total 24 22 - 32 mmol/L 09/26/2023 22:12 [facility] Anion Gap 9 5 - 14 mmol/L 09/26/2023 22:12 [facility] Glucose 115(H) 70 - 99 mg/dl 09/26/2023 22:12 [facility] Calcium 8.5 8.5 - 10.5 mg/dL 09/26/2023 22:12 [facility] BUN 16 10 - 26 mg/dL 09/26/2023 22:12 [facility] Creatinine 0.80 0.66 - 1.25 mg/dL 09/26/2023 22:12 [facility] eGFR 90 >60 mL/min/1.73 m2 09/26/2023 22:12 [facility] Blood VENOUS BLOOD / Unknown Venipuncture / Unknown 09/26/2023 21:26 EDT 09/26/2023 21:52 EDT Donna Valencia DO CHEMISTRY & BLOOD GAS ORDERABLES [facility] [address] [place] [address] * (ABNORMAL) BASIC METABOLIC PANEL (BMP) (09/26/2023 18:06 EDT) Sodium 128(L) 136 - 145 mmol/L 09/26/2023 18:34 [facility] Potassium 4.5 3.5 - 5.0 mmol/L 09/26/2023 18:34 [facility] Chloride 97 96 - 110 mmol/L 09/26/2023 18:34 [facility] CO2 Total 25 22 - 32 mmol/L 09/26/2023 18:34 [facility] Anion Gap 6 5 - 14 mmol/L 09/26/2023 18:34 [facility] Glucose 93 70 - 99 mg/dl 09/26/2023 18:34 [facility] Calcium 8.3(L) 8.5 - 10.5 mg/dL 09/26/2023 18:34 [facility] BUN 17 10 - 26 mg/dL 09/26/2023 18:34 [facility] Creatinine 0.74 0.66 - 1.25 mg/dL 09/26/2023 18:34 [facility] eGFR 92 >60 mL/min/1.73 m2 09/26/2023 18:34 [facility] Blood VENOUS BLOOD / Unknown Venipuncture / Unknown 09/26/2023 18:06 EDT 09/26/2023 18:12 EDT Donna Valencia DO CHEMISTRY & BLOOD GAS ORDERABLES Performing Organization Address City/State/[facility] Co de Phone Number [facility] [address] [place] [phone] * (ABNORMAL) BASIC METABOLIC PANEL (BMP) (09/26/2023 13:50 EDT) Sodium 129(L) 136 - 145 mmol/L 09/26/2023 14:51 [facility] Potassium 4.7 3.5 - 5.0 mmol/L 09/26/2023 14:51 [facility] Chloride 99 96 - 110 mmol/L 09/26/2023 14:51 [facility] CO2 Total 25 22 - 32 mmol/L 09/26/2023 14:51 [facility] Anion Gap 5 5 - 14 mmol/L 09/26/2023 14:51 [facility] Glucose 98 70 - 99 mg/dl 09/26/2023 14:51 [facility] Calcium 8.6 8.5 - 10.5 mg/dL 09/26/2023 14:51 [facility] BUN 19 10 - 26 mg/dL 09/26/2023 14:51 [facility] Creatinine 0.81 0.66 - 1.25 mg/dL 09/26/2023 14:51 [facility] eGFR 90 >60 mL/min/1.73 m2 09/26/2023 14:51 [facility] Blood VENOUS BLOOD / Unknown Venipuncture / Unknown 09/26/2023 13:50 EDT 09/26/2023 14:23 EDT Donna Valencia DO CHEMISTRY & BLOOD GAS ORDERABLES [facility] [address] [place] [address] * (ABNORMAL) BASIC METABOLIC PANEL (BMP) (09/26/2023 10:14 EDT) Sodium 129(L) 136 - 145 mmol/L 09/26/2023 11:05 [facility] Potassium 4.6 3.5 - 5.0 mmol/L 09/26/2023 11:05 [facility] Chloride 96 96 - 110 mmol/L 09/26/2023 11:05 [facility] CO2 Total 25 22 - 32 mmol/L 09/26/2023 11:05 [facility] Anion Gap 8 5 - 14 mmol/L 09/26/2023 11:05 [facility] Glucose 123(H) 70 - 99 mg/dl 09/26/2023 11:05 [facility] Calcium 8.6 8.5 - 10.5 mg/dL 09/26/2023 11:05 T [facility] BUN 20 10 - 26 mg/dL 09/26/2023 11:05 [facility] Creatinine 0.91 0.66 - 1.25 mg/dL 09/26/2023 11:05 [facility] eGFR 86 >60 mL/min/1.73 m2 09/26/2023 11:05 [facility] Blood VENOUS BLOOD / Unknown Venipuncture / Unknown 09/26/2023 10:14 EDT 09/26/2023 10:33 EDT Donna Valencia DO CHEMISTRY & BLOOD GAS ORDERABLES [facility] [address] [place] [address] * (ABNORMAL) BASIC METABOLIC PANEL (BMP) (09/26/2023 5:44 EDT) Sodium 128(L) 136 - 145 mmol/L 09/26/2023 6:57 [facility] Potassium 4.7 3.5 - 5.0 mmol/L 09/26/2023 6:57 [facility] Chloride 95(L) 96 - 110 mmol/L 09/26/2023 6:57 [facility] CO2 Total 25 22 - 32 mmol/L 09/26/2023 6:57 [facility] Anion Gap 8 5 - 14 mmol/L 09/26/2023 6:57 [facility] Glucose 96 70 - 99 mg/dl 09/26/2023 6:57 [facility] Calcium 8.5 8.5 - 10.5 mg/dL 09/26/2023 6:57 [facility] BUN 23 10 - 26 mg/dL 09/26/2023 6:57 [facility] Creatinine 0.90 0.66 - 1.25 mg/dL 09/26/2023 6:57 [facility] eGFR 87 >60 mL/min/1.73 m2 09/26/2023 6:57 [facility] Blood VENOUS BLOOD / Unknown Venipuncture / Unknown 09/26/2023 5:44 EDT 09/26/2023 6:24 EDT Donna Valencia DO CHEMISTRY & BLOOD GAS ORDERABLES [facility] [address], [place] [phone] * (ABNORMAL) BASIC METABOLIC PANEL (BMP) (09/26/2023 2:10 EDT) Sodium 128(L) 136 - 145 mmol/L 09/26/2023 2:56 [facility] Potassium 4.9 3.5 - 5.0 mmol/L 09/26/2023 2:56 [facility] Chloride 93(L) 96 - 110 mmol/L 09/26/2023 2:56 [facility] CO2 Total 28 22 - 32 mmol/L 09/26/2023 2:56 [facility] Anion Gap 7 5 - 14 mmol/L 09/26/2023 2:56 [facility] Glucose 103(H) 70 - 99 mg/dl 09/26/2023 2:56 [facility] Calcium 8.7 8.5 - 10.5 mg/dL 09/26/2023 2:56 [facility] BUN 28(H) 10 - 26 mg/dL 09/26/2023 2:56 [facility] Creatinine 1.04 0.66 - 1.25 mg/dL 09/26/2023 2:56 [facility] eGFR 73 >60 mL/min/1.73 m2 09/26/2023 2:56 [facility] Blood VENOUS BLOOD / Unknown Venipuncture / Unknown 09/26/2023 2:10 EDT 09/26/2023 2:14 EDT Donna Valencia DO CHEMISTRY & BLOOD GAS ORDERABLES [facility] [address] [place] [phone] * (ABNORMAL) COMPLETE BLOOD COUNT (09/26/2023 2:10 EDT) WBC 8.06 4.00 - 10.40 K/cmm 09/26/2023 2:29 EDT [facility] RBC 3.99(L) 4.36 - 5.78 M/cmm 09/26/2023 2:29 EDT [facility] Hemoglobin 12.6(L) 13.8 - 17.3 g/dL 09/26/2023 2:29 EDT [facility] HCT 35.1(L) 39.5 - 50.2 % 09/26/2023 2:29 T [facility] MCV 88 81 - 95 fL 09/26/2023 2:29 EDT [facility] MCH 31.6 27.6 - 33.0 pg 09/26/2023 2:29 [facility] MCHC 35.9 32.8 - 36.4 g/dL 09/26/2023 2:29 [facility] RDW-CV 11.8 <14.2 % 09/26/2023 2:29 T [facility] RDW-SD 37.9 <46.0 fl 09/26/2023 2:29 EDT [facility] PLT 341 141 - 377 K/cmm 09/26/2023 2:29 T [facility] MPV 9.1(L) 9.5 - 12.7 fL 09/26/2023 2:29 T [facility] Blood VENOUS BLOOD / Unknown Venipuncture / Unknown 09/26/2023 2:10 EDT 09/26/2023 2:14 EDT Loree Miller DO HEMATOLOGY & PF4 ORD ERABLES [facility] [address], [place] [phone] * (ABNORMAL) BASIC METABOLIC PANEL (BMP) (09/25/2023 21:50 EDT) Sodium 127(L) 136 - 145 mmol/L 09/25/2023 22:09 [facility] Potassium 4.5 3.5 - 5.0 mmol/L 09/25/2023 22:09 [facility] Chloride 93(L) 96 - 110 mmol/L 09/25/2023 22:09 [facility] CO2 Total 30 22 - 32 mmol/L 09/25/2023 22:09 [facility] Anion Gap 4(L) 5 - 14 mmol/L 09/25/2023 22:09 [facility] Glucose 121(H) 70 - 99 mg/dl 09/25/2023 22:09 [facility] Calcium 8.4(L) 8.5 - 10.5 mg/dL 09/25/2023 22:09 [facility] BUN 33(H) 10 - 26 mg/dL 09/25/2023 22:09 [facility] Creatinine 1.25 0.66 - 1.25 mg/dL 09/25/2023 22:09 [facility] eGFR 59(L) >60 mL/min/1.73 m2 09/25/2023 22:09 [facility] Blood VENOUS BLOOD / Unknown Venipuncture / Unknown 09/25/2023 21:50 EDT 09/25/2023 21:54 EDT Donna Valencia DO CHEMISTRY & BLOOD GAS ORDERABLES [facility] [address], [place] [phone] * EKG 12-LEAD (09/25/2023 20:25 EDT) 09/25/2023 20:2 5 EDT Narrative [facility] E[facility] - 09/28/2023 14:19 EDT ? [facility] ? Test Date: ?2023-09-25 Pat Name: ? LISANDRA HOLLIS ? Department: ?? [place] [facility] ? Room: ? M401 Gender: ? Male ? Bid Writer: ?? : ?1945 ? Requested By: JODIE Barone Order Number: [id number] ? Reading MD: ?? TRACE CHAPARRO MD ? Measurements Intervals ?[place] ? Rate: ? 134 ?P: ?0 MN: ? 0 ?QRS: ?66 QRSD: ? 87 [...] Note Riley Chaparro MD - 09/28/2023 [facility] Test Date: 2023-09-25 Pat Name: LISANDRA HOLLIS Department: [place] [address] [place] [facility] Gender: Male Bid Writer: : 1945 Requested By: JODIE Barone Order Number: [id number] Reading MD: RILEY CHAPARRO MD Measurements Intervals [place] Rate: 134 P: 0 MN: 0 QRS: 66 QRSD: 87 T: 0 [...] Selvin Ramirez MD CARDIAC ECG ORDERABL ES [facility] * MRSA PCR (09/25/2023 17:53 EDT) MRSA/Staph aureus Result No Staphylococcus aureus detected by PCR 09/25/2023 23:15 EDT [facility] Swab BOTH ANTERIOR NARES / Unknown Swab / Unknown 09/25/2023 17:53 EDT 09/25/2023 18:12 EDT Selvin Ramirez MD MICROBIOLOGY - GENER AL ORDERABLES Performing Organization Address City/[facility] Co de Phone Number [facility] [address] [place] [address] * (ABNORMAL) ELECTROLYTES (09/25/2023 17:52 EDT) Sodium 125(L) 136 - 145 mmol/L 09/25/2023 18:13 EDT [facility] Potassium 4.4 3.5 - 5.0 mmol/L 09/25/2023 18:13 EDT [facility] Chloride 89(L) 96 - 110 mmol/L 09/25/2023 18:13 EDT [facility] CO2 Total 27 22 - 32 mmol/L 09/25/2023 18:13 EDT [facility] Anion Gap 9 5 - 14 mmol/L 09/25/2023 18:13 EDT [facility] Blood VENOUS BLOOD / Unknown Venipuncture / Unknown 09/25/2023 17:52 EDT 09/25/2023 17:58 EDT Selvin Ramirez MD CHEMISTRY & BLOOD GA S ORDERABLES Performing Organization Address City/[facility]/ZIP Co de Phone Number [facility] [address] [place] [address] * (ABNORMAL) BASIC METABOLIC PANEL (BMP) (09/25/2023 17:52 EDT) Sodium 125(L) 136 - 145 mmol/L 09/25/2023 18:13 [facility] Potassium 4.4 3.5 - 5.0 mmol/L 09/25/2023 18:13 [facility] Chloride 89(L) 96 - 110 mmol/L 09/25/2023 18:13 [facility] CO2 Total 27 22 - 32 mmol/L 09/25/2023 18:13 [facility] Anion Gap 9 5 - 14 mmol/L 09/25/2023 18:13 [facility] Glucose 123(H) 70 - 99 mg/dl 09/25/2023 18:13 [facility] Calcium 8.7 8.5 - 10.5 mg/dL 09/25/2023 18:13 [facility] BUN 37(H) 10 - 26 mg/dL 09/25/2023 18:13 [facility] Creatinine 1.47(H) 0.66 - 1.25 mg/dL 09/25/2023 18:13 [facility] eGFR 48(L) >60 mL/min/1.73 m2 09/25/2023 18:13 [facility] Blood VENOUS BLOOD / Unknown Venipuncture / Unknown 09/25/2023 17:52 EDT 09/25/2023 17:58 EDT Donna Valencia DO CHEMISTRY & BLOOD GAS ORDERABLES [facility] [address] [place] [address] * (ABNORMAL) BASIC METABOLIC PANEL (BMP) (09/25/2023 13:48 EDT) Sodium 125(L) 136 - 145 mmol/L 09/25/2023 14:47 [facility] Potassium 4.3 3.5 - 5.0 mmol/L 09/25/2023 14:47 [facility] Chloride 92(L) 96 - 110 mmol/L 09/25/2023 14:47 [facility] CO2 Total 23 22 - 32 mmol/L 09/25/2023 14:47 [facility] Anion Gap 10 5 - 14 mmol/L 09/25/2023 14:47 T [facility] Glucose 226(H) 70 - 99 mg/dl 09/25/2023 14:47 [facility] Calcium 8.7 8.5 - 10.5 mg/dL 09/25/2023 14:47 [facility] BUN 46(H) 10 - 26 mg/dL 09/25/2023 14:47 [facility] Creatinine 1.93(H) 0.66 - 1.25 mg/dL 09/25/2023 14:47 [facility] eGFR 35(L) >60 mL/min/1.73 m2 09/25/2023 14:47 [facility] Blood VENOUS BLOOD / Unknown Venipuncture / Unknown 09/25/2023 13:48 EDT 09/25/2023 14:15 EDT Donna Valencia DO CHEMISTRY & BLOOD GAS ORDERABLES [facility] [address], [place] [phone] * ECG REPORT - SCANNED (09/25/2023 10:07 EDT) 09/25/2023 10:0 7 EDT Scan 2 Liquor Blender PROCEDURE/MINOR DANIEL GICAL ORDERABLES * (ABNORMAL) BASIC METABOLIC PANEL (BMP) (09/25/2023 10:06 EDT) Sodium 131(L) 136 - 145 mmol/L 09/25/2023 12:01 T [facility] Potassium 4.7 3.5 - 5.0 mmol/L 09/25/2023 12:01 [facility] Chloride 92(L) 96 - 110 mmol/L 09/25/2023 12:01 [facility] CO2 Total 27 22 - 32 mmol/L 09/25/2023 12:01 EDT [facility] Anion Gap 12 5 - 14 mmol/L 09/25/2023 12:01 EDT [facility] Glucose 131(H) 70 - 99 mg/dl 09/25/2023 12:01 EDT [facility] Calcium 9.1 8.5 - 10.5 mg/dL 09/25/2023 12:01 EDT [facility] BUN 61(H) 10 - 26 mg/dL 09/25/2023 12:01 EDT [facility] Creatinine 3.14(H) 0.66 - 1.25 mg/dL 09/25/2023 12:01 T [facility] eGFR 19(L) >60 mL/min/1.73 m2 09/25/2023 12:01 EDT [facility] Blood VENOUS BLOOD / Unknown Venipuncture / Unknown 09/25/2023 10:06 EDT 09/25/2023 11:25 EDT Donna Valencia DO CHEMISTRY & BLOOD GAS ORDERABLES [facility] [address] [place] [address] * TRANSTHORACIC ECHO (TTE) COMPLETE W/DOPPLER W/CF [...] color Doppler.The study was interpreted by [facility]. Pertinent images and [...] EPIQ #10. Donna Valencia DO CARDIAC ECHO ORDE DOM * ECG REPORT - SCANNED (09/25/2023 9:56 EDT) 09/25/2023 9:56 EDT Scan 2 Liquor Blender PROCEDURE/MINOR DANIEL GICAL ORDERABLES * (ABNORMAL) LIPID PROFILE (INCLUDES CHOLESTEROL, TRIGLYCERIDES, HDL, LDL) (09/25/2023 6:26 EDT) Cholesterol 121 <200 mg/dL 09/25/2023 9:55 T [facility] Comment:Note that therapeuti c goals will differ between patients based on cardiac risk factors and current medical therapy. HDL 34(L) >=40 mg/dl 09/25/2023 9:55 [facility] Comment:Note that therapeuti c goals will differ between patients based on cardiac risk factors and current medical therapy. LDL, Calculated 75 <160 mg/dL 9:55 [facility] Comment:Note that therapeuti c goals will differ between patients based on cardiac risk factors and current medical therapy. Triglyceride 58 <=150 mg/dL 09/25/2023 9:55 [facility] Comment:Note that therapeuti c goals will differ between patients based on cardiac risk factors and current medical therapy. Chol/HDL Ratio 3.6 See Note 09/25/2023 9:55 EDT [facility] Comment:No reference range h as been established for CHOL/HDL ratio. Non HDL Cholesterol 87 <160 mg/dL 09/25/2023 9:55 EDT [facility] Comment:Note that therapeuti c goals will differ between patients based on cardiac risk factors and current medical therapy. Blood VENOUS BLOOD / Unknown Venipuncture / Unknown 09/25/2023 6:26 EDT 09/25/2023 6:54 EDT Donna Valencia DO CHEMISTRY & BLOOD GAS ORDERABLES Performing Organization Address [facility] Co de Phone Number [facility] [address], [place] [phone] * TSH (09/25/2023 6:26 EDT) [facility] TSH 2.25 0.47 - 4.68 mIU/L 09/25/2023 10:28 EDT [facility] Blood VENOUS BLOOD / Unknown Venipuncture / Unknown 09/25/2023 6:26 EDT 09/25/2023 6:54 EDT Narrative [facility] - 09/25/2023 10:28 EDT The results of this assay can be falsely lowered due to the consumption of Biotin. Donna Valencia DO CHEMISTRY & BLOOD GAS ORDERABLES Performing Organization Address [facility] Co de Phone Number [facility] [address] [place] [address] * (ABNORMAL) HEMOGLOBIN A1C (09/25/2023 6:26 EDT) [facility] Hemoglobin A1c 5.7(H) <5.7 % 09/25/2023 11:37 EDT [facility] Comment: Glycemic Status References: Normal: ??<5.7% Pre-Diabetes: ??5.7% - 6.4% Diagnostic of Diabetes: ??> or = 6.5% (if confirmed) Est Avg Glucose 117 mg/dL 11:37 EDT [facility] Comment:The eAG represents t he A1c result expressed as average glucose in mg/dL. Blood VENOUS BLOOD / Unknown Venipuncture / Unknown 09/25/2023 6:26 EDT 09/25/2023 6:54 EDT Donna Valencia DO CHEMISTRY & BLOOD GAS ORDERABLES Performing Organization Address [facility] Co de Phone Number [facility] [address] [place] [address] * (ABNORMAL) TROPONIN I (09/25/2023 6:26 EDT) Pathologist [facility] Troponin I (ng/mL) 0.065(H) <0.034 ng/mL 09/25/2023 7:27 EDT [facility] Blood VENOUS BLOOD / Unknown Venipuncture / Unknown 09/25/2023 6:26 EDT 09/25/2023 6:54 EDT Narrative [facility] - 09/25/2023 7:27 EDT The results of this assay can be falsely lowered due to the consumption of Biotin. Loree Miller DO CHEMISTRY & BLOOD GA S ORDERABLES Performing Organization Address [facility] Co de Phone Number [facility] [address] [place] [address] * (ABNORMAL) BASIC METABOLIC PANEL (BMP) (09/25/2023 6:26 EDT) Sodium 128(L) 136 - 145 mmol/L 09/25/2023 7:12 EDT [facility] Potassium 4.1 3.5 - 5.0 mmol/L 09/25/2023 7:12 EDT [facility] Chloride 93(L) 96 - 110 mmol/L 09/25/2023 7:12 [facility] CO2 Total 25 22 - 32 mmol/L 09/25/2023 7:12 [facility] Anion Gap 10 5 - 14 mmol/L 09/25/2023 7:12 [facility] Glucose 272(H) 70 - 99 mg/dl 09/25/2023 7:12 [facility] Calcium 8.9 8.5 - 10.5 mg/dL 09/25/2023 7:12 [facility] BUN 74(H) 10 - 26 mg/dL 09/25/2023 7:12 [facility] Creatinine 3.98(H) 0.66 - 1.25 mg/dL 09/25/2023 7:12 [facility] eGFR 15(L) >60 mL/min/1.73 m2 09/25/2023 7:12 [facility] LABORATORY SERVICES Blood VENOUS BLOOD / Unknown Venipuncture / Unknown 09/25/2023 6:26 EDT 09/25/2023 6:54 EDT Loree Miller DO CHEMISTRY & BLOOD GA S ORDERABLES Performing Organization Address City/State/[facility] Co de Phone Number [facility] [address] [place] [address] * (ABNORMAL) COMPLETE BLOOD COUNT (09/25/2023 6:26 EDT) WBC 8.08 4.00 - 10.40 K/cmm 09/25/2023 7:04 [facility] RBC 3.92(L) 4.36 - 5.78 M/cmm 09/25/2023 7:04 [facility] Hemoglobin 12.4(L) 13.8 - 17.3 g/dL 09/25/2023 7:04 [facility] HCT 33.5(L) 39.5 - 50.2 % 09/25/2023 7:04 [facility] MCV 86 81 - 95 fL 09/25/2023 7:04 [facility] MCH 31.6 27.6 - 33.0 pg 09/25/2023 7:04 [facility] MCHC 37.0(H) 32.8 - 36.4 g/dL 09/25/2023 7:04 [facility] RDW-CV 12.1 <14.2 % 09/25/2023 7:04 [facility] RDW-SD 37.9 <46.0 fl 09/25/2023 7:04 [facility] PLT 372 141 - 377 K/cmm 09/25/2023 7:04 [facility] MPV 9.3(L) 9.5 - 12.7 fL 09/25/2023 7:04 [facility] Blood VENOUS BLOOD / Unknown Venipuncture / Unknown 09/25/2023 6:26 EDT 09/25/2023 6:54 EDT Loree Miller DO HEMATOLOGY & PF4 ORD ERABLES [facility] [address] [place] [address] * (ABNORMAL) BASIC METABOLIC PANEL (BMP) (09/25/2023 1:44 EDT) Sodium 130(L) 136 - 145 mmol/L 09/25/2023 2:17 [facility] Potassium 5.1(H) 3.5 - 5.0 mmol/L 09/25/2023 2:17 [facility] Chloride 93(L) 96 - 110 mmol/L 09/25/2023 2:17 [facility] CO2 Total 20(L) 22 - 32 mmol/L 09/25/2023 2:17 [facility] Anion Gap 17(H) 5 - 14 mmol/L 09/25/2023 2:17 [facility] Glucose 192(H) 70 - 99 mg/dl 09/25/2023 2:17 EDT [facility] Calcium 9.6 8.5 - 10.5 mg/dL 09/25/2023 2:17 T [facility] BUN 101(H) 10 - 26 mg/dL 09/25/2023 2:17 [facility] Creatinine 6.76(H) 0.66 - 1.25 mg/dL 09/25/2023 2:17 [facility] eGFR 8(L) >60 mL/min/1.73 m2 09/25/2023 2:17 T [facility] Blood VENOUS BLOOD / Unknown Venipuncture / Unknown 09/25/2023 1:44 EDT 09/25/2023 1:49 EDT Loree Miller DO CHEMISTRY & BLOOD GA S ORDERABLES Performing Organization Address City/State/[facility] Co de Phone Number [facility] [address] [place] [phone] * (ABNORMAL) BLOOD GASES, VENOUS (09/24/2023 22:45 EDT) pH, Venous 7.46(H) 7.31 - 7.41 09/24/2023 22:59 [facility] pCO2, Venous 27(L) 41 - 51 mmHg 09/24/2023 22:59 [facility] pO2, Venous 63(H) 30 - 50 mmHg 09/24/2023 22:59 [facility] tCO2, Venous 20(L) 22 - 28 mmol/L 09/24/2023 22:59 [facility] Temperature 35.8 C 09/24/2023 22:59 [facility] O2 Saturation, Venous 91(H) 60 - 85 % 09/24/2023 22:59 [facility] Oxygen Therapy (FIO2) 0.0 % 09/24/2023 22:59 [facility] Base Level -3.70(L) -2.00 - 3.00 mmol/L 09/24/2023 22:59 [facility] Blood VENOUS BLOOD / Unknown Venipuncture / Unknown 09/24/2023 22:45 EDT 09/24/2023 22:52 EDT Jessica Gallegos MD CHEMISTRY & BLOOD GA S ORDERABLES Performing Organization Address [facility]/ZIP Co de Phone Number [facility] [address], [place] [phone] * (ABNORMAL) PHOSPHORUS (09/24/2023 21:02 EDT) Phosphorus 7.8(H) 2.5 - 4.5 mg/dL 09/24/2023 22:37 EDT [facility] Blood VENOUS BLOOD / Unknown Venipuncture / Unknown 09/24/2023 21:02 EDT 09/24/2023 21:06 EDT Jessica Gallegos MD CHEMISTRY & BLOOD GA S ORDERABLES Performing Organization Address [facility] Co de Phone Number [facility] [address], [place] [phone] * (ABNORMAL) SODIUM (09/24/2023 21:02 EDT) Pathologist [facility] Sodium 128(L) 136 - 145 mmol/L 09/24/2023 22:37 EDT [facility] Blood VENOUS BLOOD / Unknown Venipuncture / Unknown 09/24/2023 21:02 EDT 09/24/2023 21:06 EDT Jessica Gallegos MD CHEMISTRY & BLOOD GA S ORDERABLES Performing Organization Address [facility] Co de Phone Number [facility] [address], [place] [phone] * (ABNORMAL) TROPONIN I (09/24/2023 21:02 EDT) Troponin I (ng/mL) 0.132(H) <0.034 ng/mL 09/24/2023 21:36 EDT [facility] Blood VENOUS BLOOD / Unknown Venipuncture / Unknown 09/24/2023 21:02 EDT 09/24/2023 21:06 EDT Narrative [facility] - 09/24/2023 21:36 EDT The results of this assay can be falsely lowered due to the consumption of Biotin. Juan Salvador MD MPH CHEMISTRY & BLOOD G ORDERABLES Performing Organization Address City/[facility] Co de Phone Number [facility] [address] [place] [address] * (ABNORMAL) BUN (09/24/2023 19:14 EDT) BUN 135(H) 10 - 26 mg/dL 09/24/2023 19:45 EDT [facility] Comment: Slight hemolysis identified, interpret with caution as results may be affected due to hemolysis. Blood VENOUS BLOOD / Unknown Venipuncture / Unknown 09/24/2023 19:14 EDT 09/24/2023 19:16 EDT Latisha Ruvalcaba MD CHEMISTRY & BLOOD GA S ORDERABLES Performing Organization Address [facility] Co de Phone Number [facility] [address] [place] [phone] * (ABNORMAL) CREATININE (09/24/2023 19:14 EDT) Creatinine 12.37(H) 0.66 - 1.25 mg/dL 09/24/2023 19:31 EDT [facility] Comment:Elevated initial cre atinine or critical change in creatinine value. eGFR 4(L) >60 mL/min/1.7 3m2 09/24/2023 19:31 EDT [facility] Blood VENOUS BLOOD / Unknown Venipuncture / Unknown 09/24/2023 19:14 EDT 09/24/2023 19:16 EDT Latisha Ruvalcaba MD CHEMISTRY & BLOOD GA S ORDERABLES [facility] [address] [place] [address] * CT OUTSIDE IMAGES ABDOMEN PELVIS (09/24/2023 18:22 EDT) Narrative 09/24/2023 18:22 EDT This is a non-reportable exam. External Imaging IMG OTHER IMAGING OR DERABLES * (ABNORMAL) UA CHEMICAL & SEDIMENT + REFLEX TO CULTURE (09/24/2023 17:56 EDT) Color UA Yellow Colorless, Yellow 09/24/2023 18:11 [facility] Clarity UA Clear Clear 09/24/2023 18:11 [facility] Glucose UA Negative Negative mg/dL 09/24/2023 18:11 [facility] Bilirubin UA Negative Negative 09/24/2023 18:11 [facility] Ketones UA Trace(A) Negative 09/24/2023 18:11 [facility] Specific [place], Urine 1.008 1.001 - 1.030 09/24/2023 18:11 [facility] Blood UA 3+(A) Negative 09/24/2023 18:11 [facility] Urobilinogen UA 0.2 0.2-1.0 mg/dL mg/dL 09/24/2023 18:11 [facility] Nitrite UA Negative Negative 09/24/2023 18:11 [facility] Leukocyte Esterase UA Trace(A) Negative 09/24/2023 18:11 [facility] Protein UA Negative Negative mg/dL 09/24/2023 18:11 [facility] pH, UA 5.0 5.0 - 8.0 09/24/2023 18:11 [facility] Urine RBC Count, Auto 0 - 2 0 - 2 Cells/HPF 09/24/2023 18:11 [facility] Urine WBC Count, Auto 0 - 3 0 - 3 Cells/HPF 09/24/2023 18:11 EDT [facility] Urine Squamous Count, Auto None Seen None Seen Cells/HPF 09/24/2023 18:11 EDT [facility] Urine Hyaline Cast Count, Auto <=10 <=10 Casts/LPF 09/24/2023 18:11 EDT [facility] Urine Bacteria Count, Auto None Seen None Seen Bacteria/HPF 09/24/2023 18:11 EDT [facility] Urine URINE SPECIMEN OBTAINED BY CLEAN CATCH PROCEDURE / Unknown Urine Collect / Unknown 09/24/2023 17:56 EDT 09/24/2023 18:05 EDT Narrative [facility] - 09/24/2023 18:11 EDT NOTE: Reflex to Urine Culture test is not indicated based on Urine Sediment Analysis results. Urine Sediment Analysis results are unreliable on urines that are unrefrigerated for >2 hrs or refrigerated >8 hrs. Juan Salvador MD MPH URINALYSIS ORDERABL ES Performing Organization Address [facility] Co de Phone Number [facility] [address] [place] [address] * TSH (09/24/2023 17:14 EDT) TSH 2.14 0.47 - 4.68 mIU/L 09/24/2023 18:17 EDT [facility] Blood VENOUS BLOOD / Unknown Venipuncture / Unknown 09/24/2023 17:14 EDT 09/24/2023 17:19 EDT Narrative [facility] - 09/24/2023 18:17 EDT The results of this assay can be falsely lowered due to the consumption of Biotin. Juan Salvador MD MPH CHEMISTRY & BLOOD G ORDERABLES Performing Organization Address [facility]/ZIP Co de Phone Number [facility] [address], [place] [phone] * (ABNORMAL) TROPONIN I (09/24/2023 17:14 EDT) [facility] Troponin I (ng/mL) 0.123(H) <0.034 ng/mL 09/24/2023 18:17 EDT [facility] Comment:Slight hemolysis steve ntified, interpret with caution as results may be affected due to hemolysis. Blood VENOUS BLOOD / Unknown Venipuncture / Unknown 09/24/2023 17:14 EDT 09/24/2023 17:19 EDT Narrative [facility] - 09/24/2023 18:17 EDT The results of this assay can be falsely lowered due to the consumption of Biotin. Juan Salvador MD MPH CHEMISTRY & BLOOD G ORDERABLES Performing Organization Address [facility] Co de Phone Number [facility] [address] [place] [address] * LACTIC ACID WITH REFLEX - USE FOR INITIAL SEPSIS EVALUATION (09/24/2023 17:14 EDT) [facility] Lactic Acid 1.6 <=2.0 mmol/L 09/24/2023 17:34 EDT [facility] Blood VENOUS BLOOD / Unknown Venipuncture / Unknown 09/24/2023 17:14 EDT 09/24/2023 17:19 EDT Juan Salvador MD MPH CHEMISTRY & BLOOD G ORDERABLES Performing Organization Address [facility] Co de Phone Number [facility] [address] [place] [address] * (ABNORMAL) COMPREHENSIVE METABOLIC PANEL (CMP) (09/24/2023 17:14 EDT) [facility] Sodium 122(LL) 136 - 145 mmol/L 09/24/2023 18:46 EDT [facility] Potassium 5.4(H) 3.5 - 5.0 mmol/L 09/24/2023 18:46 EDT [facility] Chloride 85(L) 96 - 110 mmol/L 09/24/2023 18:46 [facility] CO2 Total 12(L) 22 - 32 mmol/L 09/24/2023 18:46 [facility] Glucose 92 70 - 99 mg/dl 09/24/2023 18:46 [facility] BUN >120(H) 10 - 26 mg/dL 09/24/2023 18:46 [facility] Comment: NOTE: Unable to report final result due to short sample volume. ??Interpret with caution. Creatinine 09/24/2023 18:46 [facility] Comment:Specimen quantity no t sufficient for analysis. eGFR 09/24/2023 18:46 [facility] Total Protein 7.6 6.3 - 8.2 g/dL 09/24/2023 18:46 [facility] Albumin 4.1 3.4 - 4.9 g/dL 09/24/2023 18:46 [facility] Alkaline Phosphatase 57 38 - 126 U/L 09/24/2023 18:46 [facility] AST 21 15 - 46 U/L 09/24/2023 18:46 [facility] ALT 14 <50 U/L 09/24/2023 18:46 [facility] Bilirubin, Total 0.7 <1.4 mg/dL 09/24/19 18:46 [facility] Calcium 8.6 8.5 - 10.5 mg/dL 09/24/2023 18:46 [facility] Albumin/Globulin Ratio 1.2 1.0 - 2.5 09/24/2023 18:46 [facility] Anion Gap 25(H) 5 - 14 mmol/L 09/24/2023 18:46 [facility] Blood VENOUS BLOOD / Unknown Venipuncture / Unknown 09/24/2023 17:14 EDT 09/24/2023 17:19 EDT Juan Salvador MD MPH CHEMISTRY & BLOOD G ORDERABLES [facility] [address], [place] [phone] * (ABNORMAL) MAGNESIUM (09/24/2023 17:14 EDT) Pathologist [facility] Magnesium 3.2(H) 1.7 - 2.8 mg/dL 09/24/2023 18:17 EDT [facility] Comment:Slight hemolysis steve ntified, interpret with caution as results may be affected due to hemolysis. Blood VENOUS BLOOD / Unknown Venipuncture / Unknown 09/24/2023 17:14 EDT 09/24/2023 17:19 EDT Juan Salvador MD MPH CHEMISTRY & BLOOD G ORDERABLES Performing Organization Address City/[facility]/ZIP Co de Phone Number [facility] [address], [place] [phone] * MANUAL HEMATOCRIT (09/24/2023 17:13 EDT) Blood VENOUS BLOOD / Unknown Venipuncture / Unknown 09/24/2023 17:13 EDT 09/24/2023 17:19 EDT Juan Salvador MD MPH HEMATOLOGY & PF4 OR DERABLES Performing Organization Address City/[facility]/ZIP Co de Phone Number [facility] [address], [place] [phone] * (ABNORMAL) COMPLETE BLOOD COUNT AND DIFFERENTIAL (09/24/2023 17:13 EDT) Pathologist [facility] WBC 7.76 4.00 - 10.40 K/cmm 09/24/2023 18:20 EDT [facility] RBC 4.23(L) 4.36 - 5.78 M/cmm 09/24/2023 18:20 EDT [facility] Hemoglobin 09/24/2023 18:20 EDT [facility] Comment:Hemoglobin not avail able due to optical interference in patient specimen attributable to hemolysis. HCT 35.6(L) 39.5 - 50.2 % 09/24/2023 18:20 EDT [facility] Comment: Slight hemolysis present MCV 84 81 - 95 fL 09/24/2023 18:20 [facility] Comment: MCH 09/24/2023 18:20 [facility] Comment:Could not be calcula cristina due to unreportable hemoglobin. Hypochromia 09/24/2023 18:20 [facility] MCHC 09/24/2023 18:20 [facility] Comment:Could not be calcula cristina due to unreportable hemoglobin. RDW-CV 11.7 <14.2 % 09/24/2023 18:20 [facility] RDW-SD 35.4 <46.0 fl 09/24/2023 18:20 [facility] Anisocytosis 09/24/2023 18:20 [facility] PLT 318 141 - 377 K/cmm 09/24/2023 18:20 [facility] MPV 9.6 9.5 - 12.7 fL 09/24/2023 18:20 [facility] % Neutrophils 81.9 % 09/24/2023 18:20 [facility] % Lymphocytes 11.1 % 09/24/2023 18:20 [facility] % Monocytes 6.2 % 09/24/2023 18:20 [facility] % Eosinophils 0.1 % 09/24/2023 18:20 [facility] % Basophils 0.3 % 09/24/2023 18:20 [facility] % Immature Grans 0.4 % 09/24/19 18:20 [facility] Absolute Neutrophils 6.36 2.20 - 8.85 K/cmm 09/24/2023 18:20 [facility] Absolute Lymphocytes 0.86(L) 1.09 - 3.30 K/cmm 09/24/2023 18:20 [facility] Absolute Monocytes 0.48 0.10 - 0.80 K/cmm 09/24/2023 18:20 [facility] Absolute Eosinophils 0.01(L) 0.03 - 0.61 K/cmm 09/24/2023 18:20 EDT [facility] ABS Basophils 0.02 0.01 - 0.11 K/cmm 09/24/2023 18:20 EDT [facility] Absolute Immature Grans 0.03 0.00 - 0.06 K/cmm 09/24/2023 18:20 EDT [facility] Type of Differential: Auto 09/24/2023 18:20 EDT [facility] Blood VENOUS BLOOD / Unknown Venipuncture / Unknown 09/24/2023 17:13 EDT 09/24/2023 17:19 EDT Juan Salvador MD MPH PACKAGES & DNA PROB E ORDERABLES Performing Organization Address [facility]/State/[facility] Co de Phone Number [facility] [address] [place] [address] * EKG 12-LEAD (09/24/2023 17:06 EDT) 09/24/2023 17:0 6 EDT Narrative [facility] EKG - 09/25/2023 9:43 EDT ?[facility] ? Test Date: ?2023-09-24 Pat Name: ? LISANDRA HOLLIS ? Department: ?? ED ? Room: ? AC08 Gender: ? Male ? Bid Writer: ?? [id number] : ?1945 ? Requested By: ROSMERY Mendez Order Number: [id number] ? Reading MD: ?? JEANIE BOLTON MD ? Measurements Intervals ?[place] ? Rate: ? 97 ? P: ?0 MN: ? 0 ?QRS: ?27 QRSD: ? 89 ? T: ?52 QT: ? 324 ? QTc: ?412 ? Interpretive Statements ATRIAL FIBRILLATION ABNORMAL EKG I reviewed the tracing and have either agreed or edited the findings in this report. Electronically Signed On 09-25-2023 09:43:32 EDT by JEANIE BOLTON MD. Procedure Note Jeanie Bolton MD - 09/25/2023 [facility] Test Date: 2023-09-24 Pat Name: LISANDRA HOLLIS Department: ED Room: [facility] Gender: Male Bid Writer: [id number] : 1945 Requested By: ROSMERY Mendez Order Number: [id number] Reading MD: JEANIE BOLTON MD Measurements Intervals [place] Rate: 97 P: 0 MN: 0 QRS: 27 QRSD: 89 T: 52 QT: 324 QTc: 412 Interpretive Statements ATRIAL FIBRILLATION ABNORMAL EKG I reviewed the tracing and have either agreed or edited the findings inthis report. Electronically Signed On 09-25-2023 09:43:32 EDT by SUSAN PENA. Latisha Ruvalcaba MD CARDIAC ECG ORDERABL ES [facility] EKG * EKG 12-LEAD (09/24/2023 16:53 EDT) 09/24/2023 16:5 3 EDT Narrative [facility] EKG - 09/25/2023 9:51 EDT ?[facility] ? Test Date: ?2023-09-24 Pat Name: ? LISANDRA HOLLIS ? Department: ?? ED ? Room: ? 08 Gender: ? Male ? Bid Writer: ?? [id number] : ?1945 ? Requested By: MODESTO MAZA Order Number: [id number] ? Reading : ?? JEANIE BOLTON MD ? Measurements Intervals ?[place] ? Rate: ? 51 ? P: ?-39 MN: ? 195 ?QRS: ?17 QRSD: ? 98 ? T: ?33 QT: ? 461 ? QTc: ?425 ? Interpretive Statements SINUS BRADYCARDIA NONSPECIFIC ST & T-WAVE ABNORMALITY POOR R WAVE PROGRESSION LOW VOLTAGE, PRECORDIAL LEADS ABNORMAL EKG I reviewed the tracing and have either agreed or edited the findings in this report. Electronically Signed On 09-25-2023 09:51:54 EDT by JEANIE BOLTON MD. Procedure Note Jeanie Bolton MD - 09/25/2023 [facility] Test Date: 2023-09-24 Pat Name: LISANDRA HOLLIS Department: ED Room: AC08 Gender: Male Bid Writer: [id number] : 1945 Requested By: MODESTO MAZA Order Number: [id number] Reading MD: JEAINE BOLTON MD Measurements Intervals [place] Rate: 51 P: -39 MN: 195 QRS: 17 QRSD: 98 T: 33 QT: 461 QTc: 425 Interpretive Statements SINUS BRADYCARDIA NONSPECIFIC ST & T-WAVE ABNORMALITY POOR R WAVE PROGRESSION LOW VOLTAGE, PRECORDIAL LEADS ABNORMAL EKG I reviewed the tracing and have either agreed or edited the findings inthis report. Electronically Signed On 09-25-2023 09:51:54 EDT by SUSAN PENA. Juan Salvador MD MPH CARDIAC ECG ORDERAB LES [facility] EKG documented in this encounter Visit Diagnoses Diagnosis Acute bilateral obstructive uropathy- Primary Urinary obstruction, unspecified Acute bilateral obstructive uropathy Urinary obstruction, unspecified Acute renal failure, unspecified acute renal failure type ([facility]) Hyponatremia Hyposmolality and/or hyponatremia NSTEMI (non-ST elevated myocardial infarction) ([facility]) Acute myocardial infarction, subendocardial infarction, episode of care unspecified Urinary retention Retention of urine, unspecified Typical atrial flutter ([facility]) Atrial flutter MANUELITO (acute kidney injury) ([facility]) Acute kidney failure, unspecified Acute renal failure, unspecified acute renal failure type ([facility]) MANUELITO (acute kidney injury) ([facility]) Acute kidney failure, unspecified Hyponatremia Hyposmolality and/or hyponatremia NSTEMI (non-ST elevated myocardial infarction) ([facility]) Acute myocardial infarction, subendocardial infarction, episode of care unspecified Urinary retention Retention of urine, unspecified Typical atrial flutter ([facility]) Atrial flutter documented in this encounter Admitting Diagnoses Diagnosis Acute renal failure ([facility]) Acute kidney failure, unspecified MANUELITO (acute kidney injury) ([facility]) Acute kidney failure, unspecified Hyponatremia Hyposmolality and/or hyponatremia documented in this encounter Administered Medications Inactive Administered Medications - up to 3 most recent administrations Medication Order MAR Action Action Date Dose Rate Site acetaminophen (TYLENOL) tablet 650 mg 650 mg, oral, EVERY 6 HOURS PRN, Starting on Sat09/25/23 at 0042, Until Sat09/30/23 at 1731, Pain, Fever, Routine Given 09/29/2023 5:41 EDT 650 mg Given 09/27/2023 23:38 EDT 650 mg Given 09/26/2023 23:02 EDT 650 mg calcium GLUconate 100 mg/mL (10%) injection 2,000 mg 2,000 mg (2 g), intravenous, NOW X1, 1 dose, On Sat09/24/23 at 1730, STAT Given 09/24/2023 18:25 EDT 2,000 mg desmopressin (DDAVP) 1 mcg in sodium chloride (NS) 0.9 % 50 mL IVPB 1 mcg, intravenous, Administer over 15 Minutes, NOW X1, 1 dose, On Sat09/25/23 at 0230, Indication of Use: Hyponatremia, STAT Given 09/25/2023 2:56 EDT 1 m cg desmopressin (DDAVP) 1 mcg in sodium chloride (NS) 0.9 % 50 mL IVPB 1 mcg, intravenous, Administer over 15 Minutes, NOW X1, 1 dose, On Sat09/25/23 at 1230, Indication of Use: Hyponatremia, STAT Given 09/25/2023 13:17 EDT 1 mcg desmopressin (DDAVP) 2 mcg in sodium chloride (NS) 0.9 % 50 mL IVPB 2 mcg, intravenous, Administer over 15 Minutes, EVERY 8 HOURS, First dose on Sat09/25/23 at 1830, Until Discontinued, Indication of Use: Hyponatremia, Routine Given 09/26/2023 1:04 EDT 2 mcg Given 09/25/2023 18:36 EDT 2 mcg dextrose 5 % (D5W) infusion at 250 mL/hr, 2,000 mL, intravenous, CONTINUOUS, Starting on Sat09/24/23 at 2300, Until Sat09/25/23 at 0222, STAT Rate Change 09/25/2023 2:51 EDT 350 mL/hr New Bag 09/24/2023 22:55 EDT 2,000 mL 250 mL/hr dextrose 5 % (D5W) infusion at 500 mL/hr, intravenous, CONTINUOUS, Starting on Sat09/25/23 at 0230, Until Sat09/25/23 at 0800, STAT New Bag 09/25/2023 5:33 EDT 500 mL/hr New Bag 09/25/2023 3:36 EDT 500 mL/hr dextrose 5 % (D5W) infusion at 500 mL/hr, intravenous, CONTINUOUS, Starting on Sat09/25/23 at 0845, Until Sat09/25/23 at 1324, STAT New Bag 09/25/2023 13:18 EDT 500 mL/hr Rate Change 09/25/2023 12:56 EDT 500 mL/hr New Bag 09/25/2023 9:25 EDT 250 mL/hr dextrose 5 % (D5W) infusion at 200 mL/hr, intravenous, CONTINUOUS, Starting on Sat09/25/23 at 1530, Until Sat09/25/23 at 1805, Routine Rate Documented 09/25/2023 18:00 EDT 200 mL/hr Rate Documented 09/25/2023 17:00 EDT 200 mL/hr New Bag 09/25/2023 15:12 EDT 200 mL/hr dilTIAZem (CARDIZEM) tablet 30 mg 30 mg, oral, EVERY 6 HOURS, First dose (after last modification) on Sat09/30/23 at 1200, Until Discontinued, Routine enoxaparin (LOVENOX) injection 40 mg 40 mg, subcutaneous, DAILY, First dose on Sat09/26/23 at 0930, Until Discontinued, Routine Given 09/30/2023 9:45 EDT 40 mg Given 09/29/2023 9:25 EDT 40 mg Given 09/28/2023 8:57 EDT 40 mg finasteride (PROSCAR) tablet 5 mg 5 mg, oral, DAILY, First dose on Sat09/25/23 at 0915, Until Discontinued, Routine Given 09/30/2023 9:45 EDT 5 mg Given 09/29/2023 9:25 EDT 5 mg Given 09/28/2023 8:57 EDT 5 mg heparin 100 units/mL bolus from bag 2,800 Units 2,800 Units (rounded from 2,782.5 Units = 35 Units/kg ? 79.5 kg Adjusted weight), intravenous, EVERY 6 HOURS PRN, Starting on Sat09/30/23 at 1617, Until Sat09/30/23 at 1731, per current UFH level, Routine heparin 100 units/mL bolus from bag 5,550 Units 5,550 Units (rounded from 5,565 Units = 70 Units/kg ? 79.5 kg Adjusted weight), intravenous, EVERY 6 HOURS PRN, Starting on Sat09/30/23 at 1617, Until Sat09/30/23 at 1731, per current UFH level, Routine heparin in 1/2 NS 25,000 unit/250 mL infusion 0-35 Units/kg/hr ? 79.5 kg Adjusted weight (0-27.825 mL/hr, rounded to 0-28 mL/hr), intravenous, CONTINUOUS, Starting on Sat09/30/23 at 1045, Until Sat09/30/23 at 1731, Routine heparin injection 5,000 Units 5,000 Units, subcutaneous, EVERY 8 HOURS, First dose on Sat09/25/23 at 0245, Until Discontinued, Routine Given 09/26/2023 1:01 EDT 5,000 Units Given 09/25/2023 18:02 EDT 5,000 Units Given 09/25/2023 10:22 EDT 5,000 Units lactated ringers BOLUS 500 mL 500 mL, intravenous, NOW X1, 1 dose, On Sat09/27/23 at 1330, Routine New Bag 09/27/2023 13:10 EDT 500 mL lactated ringers BOLUS 500 mL 500 mL, intravenous, NOW X1, 1 dose, On Sat09/27/23 at 2315, Routine New Bag 09/27/2023 22:55 EDT 500 mL lactated ringers BOLUS 500 mL 500 mL, intravenous, NOW X1, 1 dose, On Sat09/29/23 at 1700, Routine New Bag 09/29/2023 18:09 EDT 500 mL lactated ringers BOLUS 500 mL 500 mL, intravenous, NOW X1, 1 dose, On Sat09/29/23 at 1915, Routine New Bag 09/29/2023 19:11 EDT 500 mL lidocaine (GLYDO/URO-JET) 2 % jelly in applicator topical, PRN, Starting on Sat09/27/23 at 1444, Until Sat09/30/23 at 1731, Pain, Pain at lopez cath site polyethylene glycol 3350 (MIRALAX) packet 17 g 17 g, oral, 2 TIMES DAILY, First dose (after last modification) on Sat09/26/23 at 2100, Until Discontinued, Routine Given 09/30/2023 9:45 EDT 17 g Given 09/29/2023 9:25 EDT 17 g Given 09/28/2023 8:57 EDT 17 g ramelteon (ROZEREM) tablet 8 mg 8 mg, oral, AT BEDTIME PRN, Starting on Sat09/25/23 at 0042, Until Sat09/30/23 at 1731, Sleep, Routine Given 09/28/2023 22:48 EDT 8 mg Given 09/27/2023 23:38 EDT 8 mg Given 09/26/2023 23:02 EDT 8 mg senna (SENOKOT) tablet 2 Tablet 2 Tablet, oral, AT BEDTIME, First dose on Sat09/25/23 at 0045, Until Discontinued, Routine Given 09/27/2023 21:19 EDT 2 Tablets Given 09/25/2023 4:00 EDT 2 Tablets TAMSulosin (FLOMAX) capsule 0.4 mg 0.4 mg, oral, DAILY, First dose on Sat09/25/23 at 0915, Until Discontinued, Routine Given 09/29/2023 9:25 EDT 0.4 mg Given 09/28/2023 8:57 EDT 0.4 mg Given 09/27/2023 9:51 EDT 0.4 mg TAMSulosin (FLOMAX) capsule 0.4 mg 0.4 mg, oral, AT BEDTIME, First dose (after last modification) on Sat09/30/23 at 2100, Until Discontinued, Routine documented in this encounter Active and Recently Administered Medications Times are shown in EDT. Scheduled Medication Order 09/28/2023 09/29/2023 09/30/2023 dilTIAZem (CARDIZEM) tablet 30 mg 30 mg, oral, EVERY 6 HOURS, First dose (after last modification) on Sat09/30/23 at 1200, Until Discontinued, Routine 1451 (Not Given - Provider: Chelsea Bang RN - Reason: Other - Comment: per care team do not adinister, pt will start tonight) enoxaparin (LOVENOX) injection 40 mg (CANCELED) 40 mg, subcutaneous, DAILY, First dose on Sat09/26/23 at 0930, Until Discontinued, Routine 0857 (Given - Provider: Kelly Mendez RN) 0925 (Given - Provider: Kelly Mendez RN) 0945 (Given - Provider: Chelsea Bang, GRIFFIN) finasteride (PROSCAR) tablet 5 mg 5 mg, oral, DAILY, First dose on Sat09/25/23 at 0915, Until Discontinued, Routine 0857 (Given - Provider: Kelly Mendez RN) 0925 (Given - Provider: Kelly Mendez, GRIFFIN) 0945 (Given - Provider: Chelsea Bang, RN) heparin 100 units/mL bolus from bag 5,550 Units 5,550 Units (rounded from 5,565 Units = 70 Units/kg ? 79.5 kg Adjusted weight), intravenous, NOW X1, 1 dose, On Sat09/30/23 at 1045, STAT 1318 (Not Given - Provider: Chelsea Bang RN - Reason: Patient/family refused - Comment: aware) lactated ringers BOLUS 500 mL (COMPLETED) 500 mL, intravenous, NOW X1, 1 dose, On Sat09/29/23 at 1700, Routine 1809 (New Bag - Provider: Kelly Mendez RN) lactated ringers BOLUS 500 mL (COMPLETED) 500 mL, intravenous, NOW X1, 1 dose, On Sat09/29/23 at 1915, Routine 1911 (New Bag - Provider: Kelly Mendez, GRIFFIN) polyethylene glycol 3350 (MIRALAX) packet 17 g 17 g, oral, 2 TIMES DAILY, First dose (after last modification) on Sat09/26/23 at 2100, Until Discontinued, Routine 0857 (Given - Provider: Kelly Mendez RN)2233 (Not Given - Provider: Jalen Naik, RN - Reason: Patient/family refused) 0925 (Given - Provider: Kelly Mendez RN)2200 (Not Given - Provider: Jalen Naik, RN - Reason: Patient/family refused) 0945 (Given - Provider: Chelsea Bang, GRIFFIN) senna (SENOKOT) tablet 2 Tablet 2 Tablet, oral, AT BEDTIME, First dose on Sat09/25/23 at 0045, Until Discontinued, Routine 2233 (Not Given - Provider: Jalen Naik RN - Reason: Patient/family refused) 2200 (Not Given - Provider: Jalen Naik RN - Reason: Patient/family refused) TAMSulosin (FLOMAX) capsule 0.4 mg (CANCELED) 0.4 mg, oral, DAILY, First dose on Sat09/25/23 at 0915, Until Discontinued, Routine 0857 (Given - Provider: Kelly Mendez, GRIFFIN) 0925 (Given - Provider: Kelly Mendez, GRIFFIN) TAMSulosin (FLOMAX) capsule 0.4 mg 0.4 mg, oral, AT BEDTIME, First dose (after last modification) on Sat09/30/23 at 2100, Until Discontinued, Routine Continuous Medication Order 09/28/2023 09/29/2023 09/30/2023 heparin in 1/2 NS 25,000 unit/250 mL infusion 0-35 Units/kg/hr ? 79.5 kg Adjusted weight (0-27.825 mL/hr, rounded to 0-28 mL/hr), intravenous, CONTINUOUS, Starting on Sat09/30/23 at 1045, Until Sat09/30/23 at 1731, Routine 1319 (Hold - Provide r: Chelsea Bang RN - Reason: Patient/family refused - Comment: not given, pt refused, MD aware) PRN Medication Order 09/28/2023 09/29/2023 09/30/2023 acetaminophen (TYLENOL) tablet 650 mg 650 mg, oral, EVERY 6 HOURS PRN, Starting on Sat09/25/23 at 0042, Until Sat09/30/23 at 1731, Pain, Fever, Routine 0541 (Given - Provider: Jalen Naik, GRIFFIN) bisacodyL (DULCOLAX) suppository 10 mg 10 mg, rectal, DAILY PRN, Starting on Sat09/25/23 at 0042, Until Sat09/30/23 at 1731, Constipation, Routine heparin 100 units/mL bolus from bag 2,800 Units(Linked Group 1) 2,800 Units (rounded from 2,782.5 Units = 35 Units/kg ? 79.5 kg Adjusted weight), intravenous, EVERY 6 HOURS PRN, Starting on Sat09/30/23 at 1617, Until Sat09/30/23 at 1731, per current UFH level, Routine heparin 100 units/mL bolus from bag 5,550 Units(Linked Group 1) 5,550 Units (rounded from 5,565 Units = 70 Units/kg ? 79.5 kg Adjusted weight), intravenous, EVERY 6 HOURS PRN, Starting on Sat09/30/23 at 1617, Until Sat09/30/23 at 1731, per current UFH level, Routine lidocaine (GLYDO/URO-JET) 2 % jelly in applicator topical, PRN, Starting on Sat09/27/23 at 1444, Until Sat09/30/23 at 1731, Pain, Pain at lopez cath site lidocaine (PF) 10 mg/mL (1 %) injection 2 mg 2 mg, intradermal, PRN, 4 doses, Starting on Sat09/25/23 at 0042, Until Sat09/30/23 at 1731, peripheral intravenous catheter placement, Routine ramelteon (ROZEREM) tablet 8 mg 8 mg, oral, AT BEDTIME PRN, Starting on Sat09/25/23 at 0042, Until Sat09/30/23 at 1731, Sleep, Routine 2248 (Given - Provider: Jalen Naik RN) Linked Groups Order Group 1: heparin 100 units/mL bolus from bag 5,550 UnitsJump to med 5,550 Units (rounded from 5,565 Units = 70 Units/kg ? 79.5 kg Adjusted weight), intravenous, EVERY 6 HOURS PRN, Starting on Sat09/30/23 at 1617, Until Sat09/30/23 at 1731, per current UFH level, Routine Or heparin 100 units/mL bolus from bag 2,800 UnitsJump to med 2,800 Units (rounded from 2,782.5 Units = 35 Units/kg ? 79.5 kg Adjusted weight), intravenous, EVERY 6 HOURS PRN, Starting on Sat09/30/23 at 1617, Until Sat09/30/23 at 1731, per current UFH level, Routine documented in this encounter Orders Medications Ordered That Adriano ht Not Have Been Administered Count Last Ordered Date First Ordered Date dilTIAZem (CARDIZEM) tablet 30 mg 2 024 heparin 100 units/mL bolus f rom bag 2,800 Units 1 09/30/2023 heparin 100 units/mL bolus f rom bag 5,550 Units 2 09/30/2023 heparin in 02/12 NS 25,000 uni t/250 mL infusion 1 09/30/2023 TAMSulosin (FLOMAX) capsule 0.4 mg 2 2023 lidocaine (GLYDO/URO-JET) 2 % jelly in applicator 1 09/27/2023 lidocaine (XYLOCAINE) 2 % jelly 1 chlorproMAZINE (THORAZINE) tablet 25 mg 1 0 09/26/2023 amiodarone in dextrose 150 m g/100 mL (1.5 mg/mL) IV bolus 150 mg 1 09/25/2023 amiodarone in dextrose 360 m g/200 mL (1.8 mg/mL) infusion 1 09/25/2023 bisacodyL (DULCOLAX) suppository 10 mg 1 dextrose 5 % (D5W) infusion 1 09/25/2023 heparin injection 5,000 Units 1 09/25/2023 lidocaine (PF) 10 mg/mL (1 % ) injection 2 mg 1 09/25/2023 magnesium sulfate 2 g in water 50 mL 1 09/11 polyethylene glycol 3350 (MN RALAX) packet 17 g 1 09/25/2023 potassium chloride in water infusion 20 mEq 1 09/25/2023 Diet Count Last Ordered Date First Orde red Date DISCHARGE DIET 1 09/30/2023 Nursing Count Last Ordered Date First Orde red Date ACTIVITY INSTRUCTIONS 1 09/30/2023 BATHING INSTRUCTIONS 1 09/30/2023 DRIVING INSTRUCTIONS 1 09/30/2023 Consult Count Last Ordered Date First Orde red Date CONSULT PASTORAL CARE 2 09/26/20232023 PT Count Last Ordered Date First Orde red Date PT EVALUATION AND TREAT 1 09/29/2023 IV Count Last Ordered Date First Orde red Date IV REQUEST 1 09/27/2023 Admission Count Last Ordered Date First Orde red Date ADMIT TO INPATIENT 3 09/25/2023 Transfer Count Last Ordered Date First Orde red Date TRANSFER PATIENT 2 09/26/2023 09/25/2023 ED BED REQUEST 1 09/24/2023 Discharge Count Last Ordered Date First Orde red Date DISCHARGE PATIENT 1 09/30/2023 Legal Count Last Ordered Date First Orde red Date MISCELLANEOUS DISCHARGE INSTRUCTIONS 09/11 documented in this encounter Care Teams Electrical Timing Device Calibrator Relationship Specialty Start Date End Date None, Provider PCP - General 09/24/23 10/01/23 documented as of this encounter
--- OUTSIDE RECORDS SUMMARY | 2023-10-07 16:19 | XMS_ITS | Encounter Summary ---
Author Organization [facility] Address [address] [place] [address] Care Team Providers Care Customer Resource Specialist Name Role Phone None, Provider Primary Care Provider Unavailabl e Encounter Details Date Type Department Care Team (Latest Contact Info) Description 09/24/2023 Travel Social History Tobacco Use Types Packs/Day Years Used Date Smoking Tobacco: Never Assessed Sex and Gender Information Value Date Recorded Sex Assigned at Male 10/05/2023 21:45 EDT Gender Identity Male 09/24/2023 16:53 EDT Sexual Orientation Straight 10/05/2023 21 :45 EDT documented as of this encounter Plan of Treatment Upcoming Encounters Date Type Department Care Team (Late st Contact Info) Description 10/09/2023 11:20 EDT Post-op Visit [facility] [id number] Ricardo Wright MD [address] [place] [id number] 10/09/2023 11:30 EDT Nurse Only [address] [phone] Nurse, Ep[facility] Urology 10/11/2023 14:00 EDT Office Visit [facility] Adult Primary Care - [address] [phone] Sasha Garg MD [address] [place] [id number] 10/31/2023 11:30 EDT Appointment [facility] Radiology [facility] - [address] [id number] documented as of this encounter Visit Diagnoses Not on filedocumented in this encounter Care Teams Customer Resource Specialist Relationship Specialty Start Date End Date None, Provider PCP - General 09/24/23 10/01/23 documented as of this encounter
[2023-10-07 17:25] VITALS: BP 129/67; PULSE 78; RESP 18; TEMP 37.1; O2SAT 99
--- NOTE | 2023-10-07 17:38 | NUR.NOTE ---
Nursing Note: pt was told to come to the ED for murillo removal, the pt is currently a pt with [facility], he states that he has given written consent though my chart for other hospitals to look at his chart. The pt states that he was told by urologist at [facility] that he will be seen by him, but has not had meet him yet and is concnerned about miss matched care
--- NOTE | 2023-10-07 19:07 | NUR.NOTE ---
Referral faxed to [facility]rology for BPH, urethral outflow obstruction, in 1 to 2 weeks. Nursing Note:
--- NOTE | 2023-10-07 19:39 | ED.GENADUL_ITS ---
Discharge Plan Disposition Patient Disposition: Home Condition: Stable Discharge Details Clinical Impression: Acute on chronic urinary retention, Enlarged prostate Primary Care Provider: Unknown,Unknown ED Provider: Amber Fraser Home Meds and New Rx's Prescriptions: No Action tamsulosin [Flomax] 0.4 mg capsule 0.4 mg PO DAILY Discharge Instructions Instructions: How to Care for Your Lopez Catheter Additional Instructions: You were seen in the emergency department today requesting a void trial from your Lopez catheter. You have otherwise been in your normal state of health, and this void trial was performed, and you were unfortunately unable to urinate despite having an adequate amount of urine in your bladder. For this reason your Lopez catheter was replaced. You need to follow-up at your appointment on Saturday at [facility]. We have provided you with a referral to establish with care in the [facility] system with both urology and primary care. You should leave the Lopez catheter in place until such time as a urologist tells you it is safe to be removed. Thank you for allowing us to be part of your care. HPI General Mode of arrival: ambulatory . Date/Time Provider Initiated Documentation: 10/07/23 16:09 . Limitations to Documentation: no limitations . Information obtained by: patient, family and old records reviewed . HPI Narrative: MDM: In brief, this is a 78-year-old male patient with a recent in this patient at [facility] for obstructive uropathy with associated kidney injury, presenting for removal of Lopez catheter. Reassuringly, the patient is making urine, has not had any symptoms of dysuria or hematuria nor fever to suggest urinary tract infection. He has been taking his Flomax and reports that he has follow-up after discharge on Saturday. We have shared decision-making conversation regarding removal. Typically I would counseled the patient to follow-up in his clinic for removal rather than presenting to the emergency department, though it seems that the patient left the hospital prior to removal due to his desire to avoid the 6-hour void trial afterwards. The patient is significantly desiring removal and is understanding of the risks of doing so, including urinary obstruction, infection, and need for replacement of catheter. He is understanding that he will have to stay in the emergency department until he can void to ensure that he does not require replacement of the catheter. At this time given the lack of symptoms, and the patient's report that his kidney injury resolved entirely, I do not see any indication to proceed with emergent laboratory studies, but I will provide him with a referral to urology within our system if he has difficulty following up at [facility]. ED Course: The patient tolerated p.o. fluids, bladder scanned for over 250 cc of urine, but at the 6-hour tariq was still unable to void, constituting a failed void trial. Lopez catheter was replaced using lido jelly for patient comfort, and we counseled him on Lopez catheter care. He will need to follow-up at his scheduled appointment on Saturday with [facility], but I did provide him with referrals to establish with primary care and urology at our hospital. At this time, the patient has had a full medical evaluation and is safe for discharge to home. They are hemodynamically stable, ambulatory, and tolerating PO. They are understanding of the follow-up plan and return precautions. They left our facility without incident. Amber Fraser MD HPI: This is a 78-year-old male patient presenting to have his urinary catheter removed. He was diagnosed with BPH and had an episode of urinary retention, complicated by obstructive uropathy, states that his kidney injury entirely resolved. He was discharged from the hospital most. His Lopez catheter removed before he left, but states that he did not want to wait the 6 hours for a post void trial, and he left with a catheter in place. Today he is feeling completely well per his baseline, is not experiencing any hematuria or dysuria, flank pain, fevers or chills, is eating and drinking normally, but states that he wants his Lopez catheter out. He is follow-up at [facility] on Saturday scheduled and states that he was told that he needs to have his Lopez catheter removed at numerous check-in visits, but did not want to undergo the void trial at that time. Exam: Gen: Awake and alert, in no apparent distress HEENT: Non-icteric sclera Neck: Supple Lungs: No apparent respiratory distress, normal respiratory effort. CV: Appears well perfused Abdomen: Non-distended, soft, nontender. Lopez catheter with clear yellow urine MSK: Moves 4 extremities without apparent limitation in ROM no CVA tenderness Skin: Visualized skin without rashes, cyanosis. Neuro: Normal Gait, no obvious focal deficits or facial asymmetry. Speaks in full, clear sentences. Psych: Appropriate for situation. Related Data Home Medications ?Medication ?Instructions ?Recorded ?Confirmed tamsulosin 0.4 mg capsule (Flomax) 0.4 mg PO DAILY 10/07/23 10/07/23 Allergies Allergy/AdvReac Type Severity Reaction Status Date / Time No Known Allergies Allergy Unverified 10/07/23 17:12 General Stated Complaint: Urinary DEON: 4 Course Vital Signs Vital signs: Vital Signs Temperature 36.6 C 10/07/23 16:00 Pulse 94 H 10/07/23 16:00 Respiratory Rate 16 10/07/23 16:00 Blood Pressure 116/73 10/07/23 16:00 Pulse Oximetry 99 10/07/23 16:00 Temperature 37.1 C 10/07/23 17:25 Temperature Source Temporal Artery Scan 10/07/23 17:25 Pulse 78 10/07/23 17:25 Respiratory Rate 18 10/07/23 17:25 Respiratory Effort Normal, Non-Labored 10/07/23 18:26 Blood Pressure 129/67 10/07/23 17:25 Pulse Oximetry 99 10/07/23 17:25 Oxygen Delivery Method Room Air 10/07/23 17:25 Oxygen Flow Rate 0 10/07/23 17:25 Pain Level 0 10/07/23 16:00 Medical Decision Making Quality:SDOH Health Related Social Needs: No Data to Display PFSH All Active Problems (Updated 10/07/23 @ 23:28 by Amber Fraser MD) Enlarged prostate (Acute) Acute on chronic urinary retention (Acute) Acute renal failure (Acute) Social History Smoking/Tobacco Use Status: Never Smoking risk assessment performed?: Yes Alcohol Intake: former Substance use type: does not use Housing: house Do you feel safe at home: Yes Do you feel safe in your relationship?: Yes
[2023-10-07 20:28] VITALS: BP 110/87; PULSE 68
[2023-10-07 21:46] VITALS: BP 105/60; PULSE 81; RESP 16
[2023-10-08] MEDS: Lidocaine 2% Jelly 6 ML SYR (00:39)
--- NOTE | 2023-10-08 06:26 | NUR.NOTE ---
Pt placed on care management referral list to establish primary care. Referral placed in care managements mailbox to set up PCP.
--- NOTE | 2023-10-22 10:24 | CMPROGNOTE_ITS ---
Care Management Progress Note Progress Note Text Progress Note Text: Ac called, requesting support with a broken catheter, he sounded distressed and was unsure if he needed to call the ambulance to bring him to the Emergency Department. He also identified transportation barriers, referral barriers, and concerns re: PCP attachment. CM reviewed multiple processes including medical record attainment, new patient process, DINORAH for support, Portal access and RCT transportation barrier (requirement of 48 hours notice). CM prior authorized transport through [facility]-direct billed to [facility] for transport for Ac from [place] to [facility] at [facility] and back, and worked with Michelle Milian at [facility] to coordinate timely care for Ac. Ac called later in the day sharing his gratitude for support and shared his positive experience at [facility], and reported deciding to become a new patient at the practice. SDOH(Care Management) Screening Will the Patient Participate in the Screening?: Declined to provide
== END 2023-10-07 23:41 | disposition home or self-care (01) ==
PROVIDERS: Emergency Provider Emergency Medicine
DX: N40.1 Benign prostatic hyperplasia with lower urinary tract symptoms; R33.8 Other retention of urine
CPT/HCPCS: 51702; 99284

== ENCOUNTER 2023-11-14 01:56 | Outpatient (CLI) | payer MEDICARE, SELFPAY ==
[2023-11-14 13:48] LABS: Abs Immature Grans 0.01 10^3/uL (0.0-0.06); Absolute Basophil Count 0.03 10^3/uL (0.0-0.2); Absolute Eosinophil Count 0.23 10^3/uL (0.0-0.7); Absolute Lymphocyte Count 1.98 10^3/uL (1.2-3.4); Absolute Monocyte Count 0.43 10^3/uL (0.1-0.8); Basophils % 0.5 %; Eosinophils % 3.7 %; HCT 36.5 % (40.0-50.0); Immature Grans % 0.2 %; MCH 31.7 pg (27.0-33.0); MCHC 32.9 % (32.0-36.0); MCV 96 fL (80-95); MPV 10.3 fL (8.0-11.0); Neutrophils % 56.6 %; Platelet Count 212 10^3/uL (130-400); RBC 3.79 10^6/uL (4.36-5.78); RDW-SD 49.7 fL; WBC 6.18 10^3/uL (4.4-10.8)
[2023-11-14 14:38] LABS: ALT 16 U/L (16-63); AST 15 U/L (15-37); Albumin 3.4 g/dL (3.4-5.0); Alkaline Phosphatase 62 U/L (46-116); Anion Gap 4.9 mmol/L (3-11); BUN 17 mg/dL (7-18); CO2 29.1 mmol/L (21.0-32.0); CREATININE 0.9 mg/dL (0.70-1.30); Calcium 9.2 mg/dL (8.5-10.1); Chloride 105 mmol/L (98-107); Estimated GFR 86.88 (mL/min/1.73m2); Glucose 86 mg/dL (74-106); Potassium 4.3 mmol/L (3.5-5.1); Sodium 139 mmol/L (136-145); TSH (W/Ref FT4) 3.63 uIU/mL (0.36-3.74); Total Protein 7.1 g/dL (6.4-8.2)
== END 2023-11-14 01:57 | disposition home or self-care (01) ==
LOC: LBO 01:56
PROVIDERS: PCP Family Medicine; Visit Provider Family Medicine
DX: E03.9 Hypothyroidism, unspecified (principal); I48.92 Unspecified atrial flutter; N13.9 Obstructive and reflux uropathy, unspecified; N17.9 Acute kidney failure, unspecified; E87.1 Hypo-osmolality and hyponatremia; Z00.00 Encounter for general adult medical examination without abnormal findings
CPT/HCPCS: 36415; 80053; 84443; 85025

== ENCOUNTER 2023-11-28 00:39 | Outpatient (CLI) | payer MEDICARE, SELFPAY ==
[2023-11-28] MEDS: Omnipaque 350 MG/ML 100 ML BTL IJ (11:13)
[2023-11-28] MEDS: Normal Saline - Diluent 50 ML VIAL IJ (11:14)
--- NOTE | 2023-11-28 11:20 | DI.CT_ITS ---
Exam(s) CT ABDOMEN PELVIS WO/W EXAM: CT ABDOMEN PELVIS WO/W CLINICAL HISTORY: OBSTRUCTIVE,REFLUX UROPATHY,N13.9 TECHNIQUE: Imaging Protocol: Axial computed tomography images with coronal and sagittal reformatted images were created and reviewed. CONTRAST MATERIAL: Intravenous: Omnipaque 350 Contrast volume:100 mL Oral: No COMPARISON: CT CT ABDOMEN PELVIS WO from 09/24/2023 FINDINGS: ABDOMEN: Lung Bases: Normal where visualized. Liver: Normal density. There is a 2.7 x 1.2 cm mass in the inferior aspect of the right lobe of the l iver. It shows progressive enhancement on the venous and the 7 minutes postcontrast images. The fin dings are most suggestive of a hepatic hemangioma. There is a simple cyst in the posterior aspect of the right lobe of the liver. Portal, Superior Mesenteric, and Splenic Veins: Unremarkable. Gallbladder and Biliary Tract: No radiodense calculus or dilation. Pancreas: Normal density, no abnormal calcifications or inflammatory process. Spleen: Normal. Adrenals: No masses seen. Kidneys: Normal size, contour and axis. No radiodense stones or obstructive uropathy. There is a simp le cyst in the superior pole of the left kidney. No follow-up is recommended. No suspicious renal m asses are present. On the delayed images, contrast is seen throughout the left renal collecting syst em. On the right, there is dilatation of the renal pelvis. There is no contrast seen beyond the ure teral pelvic junction. No obstructing stone is seen. Abdominal Aorta: Abdominal portion non-dilated. Atherosclerotic calcification is present. Bowel: There is diverticulosis of the colon but no evidence of acute diverticulitis. There is a mode rate amount of stool seen throughout the colon. There is no evidence of bowel obstruction or bowel w all thickening. Appendix is unremarkable. Peritoneal Cavity: No ascites, collection or mesenteric inflammatory response. No free air. Lymph Nodes: Within normal limits. Bones: Within normal limits for the patient's age. There is L5 spondylolysis without evidence of spo ndylolisthesis. Soft Tissues: Unremarkable. PELVIS: Bladder: There is a Lopez catheter in place. There is thickening of the wall of the urinary bladder. This may be due to underdistention. Reproductive Organs: The prostate gland is moderately enlarged. Lymph Nodes: Within normal limits. Bones: Within normal limits for the patient's age. IMPRESSION: 1. Dilatation of the right renal pelvis without contrast seen beyond the UPJ on the delayed images. Findings raise a question of a UPJ obstruction. No stone is seen. Nuclear medicine renal scan shoul d be considered for further evaluation. 2. Moderately enlarged prostate gland. 3. Diffuse thickening of the wall of the urinary bladder with a Lopez catheter in place. This may be due to underdistention. Chronic bladder outlet obstruction, neoplasm or infection should also be co nsidered. Please correlate clinically. 4. 2.7 x 1.2 cm peripherally enhancing and progressively enhancing hepatic mass most suggestive of a hepatic hemangioma. Nonemergent CT or MRI of the abdomen using the hepatic Linda protocol should be considered for further characterization. RADIATION DOSE DELIVERED: 796.63mGy.cm Total DLP 796.63mGy.cm Total DLP DATA REPOSITORY: All CT scans at this facility are submitted to the National Radiology Data Registry (NRDR) Dose Index Registry (DIR) with the [employer] ([employer]). RADIATION OPTIMIZATION: All CT scans at this facility use at least one of these dose optimization te chniques: automated exposure control; mA and/or kV adjustment per patient size (includes targeted exa ms where dose is matched to clinical indication); or iterative reconstruction.
== END 2023-11-28 00:59 ==
PROVIDERS: PCP Family Medicine; Visit Provider Family Medicine
DX: N13.9 Obstructive and reflux uropathy, unspecified (principal)
CPT/HCPCS: 74178; J3490

== ENCOUNTER → 2023-12-12 14:37 | Outpatient (BNVA) | payer MEDICARE, SELFPAY | PROVIDERS: PCP Family Medicine; Referring Provider Family Medicine; Visit Provider Urology | DX: N13.9 Obstructive and reflux uropathy, unspecified (principal) | CPT/HCPCS: 99215 ==

== ENCOUNTER 2023-12-18 19:59 | Outpatient (REF) | payer MEDICARE, SELFPAY ==
[2023-12-18 18:57] LABS: Bilirubin Negative (Negative); Blood Moderate (Negative); Clarity Cloudy (Clear); Glucose Negative (Negative); Ketones Negative (Negative); Leukocyte Esterase Large (Negative); Nitrite Positive (Negative); Urobilinogen 0.2 mg/dL (Up to 0.2); pH 7.5 (5-8)
[2023-12-18 19:06] LABS: C & S Indicated? Yes; WBC >50 HPF (0-5)
== END 2023-12-18 20:00 | disposition home or self-care (01) ==
LOC: LBN 19:59
PROVIDERS: PCP Family Medicine; Visit Provider Family Medicine
DX: R30.0 Dysuria (principal); N40.1 Benign prostatic hyperplasia with lower urinary tract symptoms; N13.8 Other obstructive and reflux uropathy; N13.9 Obstructive and reflux uropathy, unspecified; I48.92 Unspecified atrial flutter
CPT/HCPCS: 81003; 81015; 87086

== ENCOUNTER → 2024-01-06 13:48 | Outpatient (BNVA) | payer MEDICARE, SELFPAY | PROVIDERS: PCP Family Medicine; Referring Provider Family Medicine; Visit Provider Urology | DX: N13.8 Other obstructive and reflux uropathy (principal) | CPT/HCPCS: 51702; 76775; 99214 ==

== ENCOUNTER → 2024-02-10 07:52 | Outpatient (BNVA) | payer MEDICARE, SELFPAY | PROVIDERS: PCP Family Medicine; Referring Provider Family Medicine; Visit Provider Nurse Practitioner Gerontology | DX: R33.9 Retention of urine, unspecified (principal); R39.9 Unspecified symptoms and signs involving the genitourinary system | CPT/HCPCS: 51702; 51798 ==

== ENCOUNTER → 2024-03-12 07:57 | Outpatient (BNVA) | payer MEDICARE, SELFPAY | PROVIDERS: PCP Family Medicine; Visit Provider Nurse Practitioner Gerontology | DX: R33.9 Retention of urine, unspecified (principal) | CPT/HCPCS: 51798; 99214 ==

== ENCOUNTER 2024-03-12 09:13 | Outpatient (REF) | payer MEDICARE, SELFPAY ==
[2024-03-12 17:39] LABS: Bilirubin Negative (Negative); Blood Trace-intact (Negative); Clarity Sl Cloudy (Clear); Glucose Negative (Negative); Ketones Negative (Negative); Leukocyte Esterase Large (Negative); Nitrite Positive (Negative); Urobilinogen 0.2 mg/dL (Up to 0.2)
[2024-03-12 18:04] LABS: Bacteria Many HPF (Negative); C & S Indicated? Yes; Casts Negative LPF (Negative); Crystals Negative HPF (Negative); Epithelial Cells Rare HPF (Negative); Mucus Negative (Negative); RBC 0-2 HPF (0-2); WBC >50 HPF (0-5)
== END 2024-03-12 09:14 | disposition home or self-care (01) ==
LOC: LBN 09:13
PROVIDERS: PCP Family Medicine; Visit Provider Family Medicine
DX: R30.0 Dysuria (principal); B96.29 Other Escherichia coli [E. coli] as the cause of diseases classified elsewhere
CPT/HCPCS: 87077; 81003; 81015; 87086; 87186

== ENCOUNTER → 2024-03-13 11:12 | Outpatient (BNVA) | payer MEDICARE, SELFPAY | PROVIDERS: PCP Family Medicine; Referring Provider Family Medicine; Visit Provider Urology | DX: R33.8 Other retention of urine (principal); N13.8 Other obstructive and reflux uropathy | CPT/HCPCS: 51702; 99213 ==

== ENCOUNTER 2024-04-21 08:31 | Emergency (ER) | payer MEDICARE, SELFPAY ==
[2024-04-21 08:34] VITALS: BP 112/65; PULSE 66; RESP 18; TEMP 36.4; O2SAT 96
== END 2024-04-21 09:00 | disposition left against medical advice (07) ==
PROVIDERS: PCP Family Medicine
DX: Z53.21 Procedure and treatment not carried out due to patient leaving prior to being seen by health care provider (principal)

== ENCOUNTER 2024-04-23 01:07 | Outpatient (CLI) | payer MEDICARE, SELFPAY ==
--- NOTE | 2024-04-23 09:35 | DI.RAD_ITS ---
Exam(s) XR HIP PELVIS ADULT BL EXAM: XR HIP PELVIS ADULT BL CLINICAL HISTORY: pain and bruising after fall,trauma,t14.90xa. TECHNIQUE: 2D digital imaging was performed of the pelvis and bilateral hips. Four images were obta ined. AP pelvis and lateral views of both hips were obtained. COMPARISON: CT CT ABDOMEN PELVIS WO/W from 11/28/2023 FINDINGS: BONES: No acute fracture is present. No bony destructive lesion is seen. JOINTS: No dislocation present. There is mild joint space narrowing of the hips bilaterally. SOFT TISSUE: There is a catheter in the pelvis. Its location suggest urinary tract catheter. IMPRESSION: No acute fracture or dislocation. DATA REPOSITORY: RADIATION DOSE DELIVERED:
--- NOTE | 2024-04-23 10:00 | DI.RAD_ITS ---
Exam(s) XR SHOULDER RT COMPLETE 2+V EXAM: XR SHOULDER RT COMPLETE 2+V CLINICAL HISTORY: pain after fall,trauma,t14.90xa. TECHNIQUE: 2D digital imaging was performed of the right shoulder. Five images were obtained. AP, Grashey, Y-view and axillary views were obtained. COMPARISON: No exams were available for comparison FINDINGS: BONES: No acute fracture is present. No bony destructive lesion is seen. JOINTS: No dislocation present. There are mild degenerative changes seen at the acromioclavicular bernardo nt. The glenohumeral joint is well maintained. SOFT TISSUE: Normal. IMPRESSION: No acute fracture or dislocation. DATA REPOSITORY: RADIATION DOSE DELIVERED:
== END 2024-04-23 01:27 ==
LOC: DI 01:07
PROVIDERS: PCP Family Medicine; Visit Provider Urology
DX: T14.90XA Injury, unspecified, initial encounter (principal); M25.551 Pain in right hip; M25.511 Pain in right shoulder
CPT/HCPCS: 73521; 73030

== ENCOUNTER 2024-05-11 07:56 | Outpatient (REF) | payer MEDICARE, SELFPAY ==
[2024-05-11 19:42] LABS: Bilirubin Negative (Negative); Blood Large (Negative); Clarity Cloudy (Clear); Glucose Negative (Negative); Ketones Negative (Negative); Leukocyte Esterase Large (Negative); Nitrite Positive (Negative); Specific Gravity 1.015 (1.005-1.025); Urobilinogen 0.2 mg/dL (Up to 0.2)
[2024-05-11 19:54] LABS: Bacteria Many HPF (Negative); C & S Indicated? C&S Done As Ordered; Casts Negative LPF (Negative); Crystals Negative HPF (Negative); Epithelial Cells Rare HPF (Negative); Mucus Negative (Negative); RBC >50 HPF (0-2); WBC >50 HPF (0-5)
== END 2024-05-11 07:57 | disposition home or self-care (01) ==
LOC: URO 07:56
PROVIDERS: PCP Family Medicine; Referring Provider Family Medicine; Visit Provider Urology
DX: R33.9 Retention of urine, unspecified (principal); Z46.6 Encounter for fitting and adjustment of urinary device; R30.0 Dysuria
CPT/HCPCS: 51702; 51798; 87077; 99213; 81003; 81015; 87086; 87186

== ENCOUNTER → 2024-06-29 07:57 | Outpatient (BNVA) | payer MEDICARE, SELFPAY | PROVIDERS: PCP Family Medicine; Visit Provider Urology | DX: R33.9 Retention of urine, unspecified (principal); Z46.6 Encounter for fitting and adjustment of urinary device | CPT/HCPCS: 51702 ==

== ENCOUNTER → 2024-06-30 11:14 | Outpatient (BNVA) | payer MEDICARE, SELFPAY | PROVIDERS: PCP Family Medicine; Referring Provider Family Medicine; Visit Provider Urology | DX: R33.9 Retention of urine, unspecified (principal); Z46.6 Encounter for fitting and adjustment of urinary device | CPT/HCPCS: 51702 ==

== ENCOUNTER 2024-06-30 18:58 | Outpatient (REF) | payer MEDICARE, SELFPAY | END 2024-06-30 18:59 | disposition home or self-care (01) | LOC: LBN 18:58 | PROVIDERS: PCP Family Medicine; Visit Provider Urology | DX: R33.9 Retention of urine, unspecified (principal) | CPT/HCPCS: 87077; 87086; 87186 ==

== ENCOUNTER → 2024-07-20 14:31 | Outpatient (BNVA) | payer MEDICARE, SELFPAY | PROVIDERS: PCP Family Medicine; Referring Provider Family Medicine; Visit Provider Urology | DX: Z46.6 Encounter for fitting and adjustment of urinary device (principal); R33.9 Retention of urine, unspecified; N21.0 Calculus in bladder; N40.1 Benign prostatic hyperplasia with lower urinary tract symptoms; N13.8 Other obstructive and reflux uropathy | CPT/HCPCS: 51702 ==

== ENCOUNTER → 2024-08-10 14:03 | Outpatient (BNVA) | payer MEDICARE, SELFPAY | PROVIDERS: PCP Family Medicine; Referring Provider Family Medicine; Visit Provider Urology | DX: R33.9 Retention of urine, unspecified (principal); N13.9 Obstructive and reflux uropathy, unspecified; R53.1 Weakness; Z46.6 Encounter for fitting and adjustment of urinary device | CPT/HCPCS: 99213; 36416; 85018; 51702 ==

== ENCOUNTER → 2024-08-31 13:50 | Outpatient (BNVA) | payer MEDICARE, SELFPAY | PROVIDERS: PCP Family Medicine; Referring Provider Family Medicine; Visit Provider Urology | DX: Z46.6 Encounter for fitting and adjustment of urinary device (principal); R33.9 Retention of urine, unspecified | CPT/HCPCS: 51702 ==

== ENCOUNTER → 2024-10-01 14:09 | Outpatient (BNVA) | payer MEDICARE, SELFPAY | PROVIDERS: Visit Provider Urology | DX: R33.9 Retention of urine, unspecified (principal); Z46.6 Encounter for fitting and adjustment of urinary device; N21.0 Calculus in bladder; R39.89 Other symptoms and signs involving the genitourinary system | CPT/HCPCS: 51702; 81002 ==

== ENCOUNTER 2024-10-01 14:34 | Outpatient (REF) | payer MEDICARE, SELFPAY | END 2024-10-01 14:35 | disposition home or self-care (01) | LOC: LBN 14:34 | PROVIDERS: Visit Provider Urology | DX: R39.89 Other symptoms and signs involving the genitourinary system (principal); R30.0 Dysuria; N21.0 Calculus in bladder; R33.9 Retention of urine, unspecified; R82.89 Other abnormal findings on cytological and histological examination of urine | CPT/HCPCS: 87086 ==

== ENCOUNTER → 2024-10-23 12:56 | Outpatient (BNVA) | payer MEDICARE, SELFPAY | PROVIDERS: Visit Provider Urology | DX: N40.1 Benign prostatic hyperplasia with lower urinary tract symptoms (principal); N13.8 Other obstructive and reflux uropathy; R33.9 Retention of urine, unspecified | CPT/HCPCS: 51702 ==

== ENCOUNTER → 2024-11-10 12:46 | Outpatient (BNVA) | payer MEDICARE, SELFPAY | PROVIDERS: Visit Provider Urology | DX: R33.9 Retention of urine, unspecified (principal); Z46.6 Encounter for fitting and adjustment of urinary device; N21.0 Calculus in bladder; R30.0 Dysuria | CPT/HCPCS: 51702 ==

== ENCOUNTER 2024-11-10 13:19 | Outpatient (REF) | payer MEDICARE, SELFPAY | END 2024-11-10 13:20 | disposition home or self-care (01) | LOC: LBN 13:19 | PROVIDERS: Visit Provider Urology | DX: N21.0 Calculus in bladder (principal); R30.0 Dysuria | CPT/HCPCS: 87086 ==

== ENCOUNTER → 2024-12-01 13:17 | Outpatient (BNVA) | payer MEDICARE, SELFPAY | PROVIDERS: Visit Provider Urology | DX: R33.9 Retention of urine, unspecified (principal); Z46.6 Encounter for fitting and adjustment of urinary device | CPT/HCPCS: 51702 ==

== ENCOUNTER → 2025-01-05 10:54 | Outpatient (BNVA) | payer MEDICARE, SELFPAY | PROVIDERS: Visit Provider Urology | DX: R33.9 Retention of urine, unspecified (principal); Z46.6 Encounter for fitting and adjustment of urinary device | CPT/HCPCS: 51702 ==